=== PATIENT | male | born 1955 | race Two or more races ===

== ENCOUNTER 2018-01-08 21:52 | Inpatient (IN) | payer MEDICAID ==
[~2018-01-08] VITALS: Ht 149.9 cm; Wt 63.0 kg
[2018-01-08] MEDS ORDERED: METFORMIN HCL500 M1 ORAL (22:12)
--- NOTE | 2018-01-08 22:37 | Emergency Room Report ---
History of Present Illness General Chief Complaint: Fever Source: Patient Present Illness HPI Presents with 2 weeks of weakness and lack of appetite with diarrhea. He was told had pneumonia but was afebrile was only given an expectorant. Denies productive cough at this time. Apparently labs were done but no x-ray or EKG at that time. The patient has a history of diabetes. He denies any polyuria or polydipsia. There's no dysuria. He had one episode of diarrhea several days ago at that was brown in color no blood or melena was passed. Still denies fevers, chills, chest pain, dyspnea. Generalized weakness. Takes metformin 500 mg once a day for diabetes. No other medical problems. Never smoker. Allergies: Coded Allergies: No Known Allergies (Unverified , 01/08/18) Patient History Past Medical History: see triage record Social History: Denies: smoking Social History Narrative with family Reviewed Nursing Documentation: PMH: Agreed, PSxH: Agreed Nursing Documentation-PMH Hx Diabetes: Yes Review of Systems All Other Systems: negative except mentioned in HPI Physical Exam Vital Signs Date Time Temp Pulse Resp B/P (MAP) Pulse Ox O2 Delivery O2 Flow Rate FiO2 01/08/18 21:58 101.3 98 16 115/80 94 Room Air 101.3 Sp02 EP Interpretation: reviewed, abnormal - interpreted as low by me General Appearance: no apparent distress, GCS 15, other - weak and slow to move Head: normocephalic Eyes: bilateral eye normal inspection, bilateral eye PERRL ENT: moist mucus membranes - poor dentition Neck: supple Respiratory: lungs clear, normal breath sounds, no respiratory distress Cardiovascular #1: regular rate, rhythm, no edema Cardiovascular #2: 2+ radial (R) Gastrointestinal: normal inspection, normal bowel sounds, non tender, no mass, non-distended Musculoskeletal: back normal, gait/station normal, normal range of motion Neurologic: alert, oriented x3, motor strength/tone normal, DTRs symmetric, sensory intact Psychiatric: depressed affect Skin: normal inspection, warm/dry Medical Decision Making Diagnostic Impression: Primary Impression: Pneumonia Qualified Codes: J18.1 - Lobar pneumonia, unspecified organism Additional Impressions: Hyponatremia Diabetes Qualified Codes: E11.8 - Type 2 diabetes mellitus with unspecified complications ER Course Patient presents with alleged pneumonia with fever, low O2 sat, weakness and poor appetite with h/o diabetes. Ddx: pneumonia, atypical pneumonia, mass, electrolyte abnormality, ACS amongst others. Evaluation with BC, lactate, EKG and other labs. Diabetes might make cardiac disease silent. Treatment with IV hydration pending other labs. EKG without injury or ischemia. CXR with RUL infiltrate. WBC normal. Sodium low. Glucose mildly elevated. Troponin neg. Influenza neg. Antibiotics begun. Patient not want to be in hospital. Explained risks and need for further evaluation and treatment of infiltrate and low sodium. Patient and family understand and agree to admission Admit med Dr. Baez. Laboratory Tests Test 01/08/18 22:15 01/08/18 22:29 01/09/18 08:40 01/09/18 09:40 Urine Color Brown Yellow Urine Appearance Clear Clear Urine pH 6 (4.5-8.0) 7 (4.5-8.0) Urine Specific [place] 1.015 (1.005-1.035) 1.005 (1.005-1.035) Urine Protein Negative (NEGATIVE) Negative (NEGATIVE) Urine Glucose (UA) Negative (NEGATIVE) Negative (NEGATIVE) Urine Ketones Negative (NEGATIVE) Negative (NEGATIVE) Urine Occult Blood 3+ (NEGATIVE) H 1+ (NEGATIVE) H Urine Nitrite Negative (NEGATIVE) Negative (NEGATIVE) Urine Bilirubin Negative (NEGATIVE) Negative (NEGATIVE) Urine Urobilinogen 8 MG/DL (0.0-1.0) H 4 MG/DL (0.0-1.0) H Urine Leukocyte Esterase Negative (NEGATIVE) Negative (NEGATIVE) Urine RBC 2-4 /HPF (0 - 0) H 2-4 /HPF (0 - 0) H Urine WBC 0-2 /HPF (0 - 0) 0 /HPF (0 - 0) Urine Squamous Epithelial Cells None /LPF (NONE/OCC) Occasional /LPF Urine Bacteria Few /HPF (NONE) Occasional /HPF (NONE) White Blood Count 9.1 K/UL (4.8-10.8) Red Blood Count 5.35 M/UL (4.70-6.10) Hemoglobin 15.8 G/DL (14.2-18.0) Hematocrit 45.0 % (42.0-52.0) Mean Corpuscular Volume 84 FL (80-99) Mean Corpuscular Hemoglobin 29.6 PG (27.0-31.0) Mean Corpuscular Hemoglobin Concent 35.2 G/DL (32.0-36.0) Red Cell Distribution Width 11.0 % (11.6-14.8) L Platelet Count 238 K/UL (150-450) Mean Platelet Volume 6.3 FL (6.5-10.1) L Neutrophils (%) (Auto) 72.9 % (45.0-75.0) Lymphocytes (%) (Auto) 17.6 % (20.0-45.0) L Monocytes (%) (Auto) 7.3 % (1.0-10.0) Eosinophils (%) (Auto) 1.3 % (0.0-3.0) Basophils (%) (Auto) 0.9 % (0.0-2.0) Prothrombin Time 10.5 SEC (9.30-11.50) Prothrombin Time INR 1.0 (0.9-1.1) PTT 25 SEC (23-33) Sodium Level 126 MMOL/L (136-145) L Potassium Level 3.9 MMOL/L (3.5-5.1) Chloride Level 91 MMOL/L (98-107) L Carbon Dioxide Level 30 MMOL/L (21-32) Anion Gap 5 mmol/L (5-15) Blood Urea Nitrogen 9 mg/dL (7-18) Creatinine 1.1 MG/DL (0.55-1.30) Estimate Glomerular Filtration Rate > 60 mL/min (>60) Glucose Level 178 MG/DL (74-106) H Lactic Acid Level 1.50 mmol/L (0.66-2.22) Calcium Level 8.5 MG/DL (8.5-10.1) Total Bilirubin 0.8 MG/DL (0.2-1.0) Aspartate Amino Transferase (AST) 36 U/L (15-37) Alanine Aminotransferase (ALT) 69 U/L (12-78) Alkaline Phosphatase 116 U/L (46-116) Total Creatine Kinase 56 U/L (26-308) Troponin I 0.000 ng/mL (0.000-0.056) Pro-B-Type Natriuretic Peptide 61 pg/mL (0-125) Total Protein 8.7 G/DL (6.4-8.2) H Albumin 2.5 G/DL (3.4-5.0) L Globulin 6.2 g/dL Albumin/Globulin Ratio 0.4 (1.0-2.7) L Urine Osmolality 394 mOsm/kg (429-449) L Urine Random Sodium 105 MEQ/L (20-110) Osmolality 277 mOsm/kg (297-317) L Uric Acid 2.2 MG/DL (2.6-7.2) L Thyroid Stimulating Hormone (TSH) 1.589 uiU/mL (0.358-3.740) Free Thyroxine 1.19 NG/DL (0.76-1.46) Free Triiodothyronine 1.5 pg/mL (2.3-4.2) L Cortisol Pending Microbiology Date/Time Source Procedure Growth Status 01/08/18 22:29 Nasal Nares Influenza Types A,B Antigen (CHRISSY) - Final Complete EKG Diagnostic Results Rate: normal Rhythm: NSR ST Segments: no acute changes Rhythm Strip Diag. Results EP Interpretation: yes Rhythm: NSR, no PVC's, no ectopy Chest X-Ray Diagnostic Results Chest X-Ray Diagnostic Results : Chest X-Ray Ordered: Yes # of Views/Limited/Complete: 1 View Indication: Other EP Interpretation: Yes Interpretation: no effusion, no pneumothorax, other - RUL infiltrate Impression: Other Electronically Signed by: Minor Lu MD Last Vital Signs Date Time Temp Pulse Resp B/P (MAP) Pulse Ox O2 Delivery O2 Flow Rate FiO2 01/08/18 21:58 101.3 98 16 115/80 94 Room Air 101.3 Status: improved Disposition: ADMITTED INPATIENT Condition: Serious Referrals: NON PHYSICIAN (PCP) Minor Lu M.D. Jan 08, 2018 22:37
[2018-01-08 23:07] LABS: APPEARANCE,URINE CLEAR; BILIRUBIN, URINE NEGATIVE (NEGATIVE); COLOR,URINE BROWN; GLUCOSE, URINE (UA) NEGATIVE (NEGATIVE); KETONES,URINE NEGATIVE (NEGATIVE); LEUKOCYTE ESTERASE ,URINE NEGATIVE (NEGATIVE); NITRITE,URINE NEGATIVE (NEGATIVE); PH,URINE 6 (4.5-8.0); PROTEIN,URINE NEGATIVE (NEGATIVE); UROBILINOGEN,URINE 8 MG/DL (0.0-1.0)
[2018-01-08 23:09] LABS: BASOPHILS % (AUTO) 0.9 % (0.0-2.0); EOSINOPHILS % (AUTO) 1.3 % (0.0-3.0); HEMOGLOBIN 15.8 G/DL (14.2-18.0); LYMPHOCYTES % (AUTO) 17.6 % (20.0-45.0); MEAN CORPUSCULAR VOLUME 84 FL (80-99); MONOCYTES % (AUTO) 7.3 % (1.0-10.0); NEUTROPHILS % (AUTO) 72.9 % (45.0-75.0); PLATELET COUNT 238 K/UL (150-450); RED BLOOD COUNT 5.35 M/UL (4.70-6.10); WHITE BLOOD COUNT 9.1 K/UL (4.8-10.8)
[2018-01-08] MEDS ORDERED: cefTRIAXone 1 GM in NS 55 ML IVPB ONE (23:15)
[2018-01-08 23:16] LABS: ANION GAP 5 mmol/L (5-15); BLOOD UREA NITROGEN 9 mg/dL (7-18); CALCIUM 8.5 MG/DL (8.5-10.1); CARBON DIOXIDE 30 MMOL/L (21-32); CHLORIDE 91 MMOL/L (98-107); CREATININE 1.1 MG/DL (0.55-1.30); POTASSIUM 3.9 MMOL/L (3.5-5.1); SODIUM 126 MMOL/L (136-145)
[2018-01-08 23:33] LABS: ALANINE AMINOTRANSFERASE 69 U/L (12-78); ALBUMIN 2.5 G/DL (3.4-5.0); ALBUMIN/GLOBULIN RATIO 0.4 (1.0-2.7); ALKALINE PHOSPHATASE 116 U/L (46-116); ASPARTATE AMINO TRANSFERASE 36 U/L (15-37); BILIRUBIN,TOTAL 0.8 MG/DL (0.2-1.0); CREATINE KINASE 56 U/L (26-308)
[2018-01-09] VITALS (8 sets, daily range): BP systolic 115–146; BP diastolic 66–88
[2018-01-09] MEDS ORDERED: Miralax 17gm pkt ORAL PRN (06:30)
[2018-01-09] MEDS ORDERED: Morphine Sulfate 4mg/ml Inj IVP PRN (06:30)
[2018-01-09] MEDS: NovoLOG Insulin Flexpen SUBQ SCH ×4 (06:30→20:50)
[2018-01-09] MEDS ORDERED: LORazepam Inj 2mg/ml 1ml IV PRN (06:30)
[2018-01-09] MEDS ORDERED: Albuterol/Ipratropium 3ml neb HHN PRN (06:30)
[2018-01-09] MEDS ORDERED: Promethazine/Codeine 5ml UD ORAL PRN (06:30)
[2018-01-09] MEDS: Heparin 5000 units/ml inj SUBQ SCH ×2 (08:33→20:50)
[2018-01-09] MEDS: Cefepime HCl 2 GM in NS 110 ML IV SCH ×2 (08:58→20:49)
[2018-01-09] MEDS ORDERED: Cefepime HCl 2 GM in D5W 110 ML IV SCH (09:00)
[2018-01-09 09:01] LABS: APPEARANCE,URINE CLEAR; BILIRUBIN, URINE NEGATIVE (NEGATIVE); GLUCOSE, URINE (UA) NEGATIVE (NEGATIVE); KETONES,URINE NEGATIVE (NEGATIVE); LEUKOCYTE ESTERASE ,URINE NEGATIVE (NEGATIVE); NITRITE,URINE NEGATIVE (NEGATIVE); PH,URINE 7 (4.5-8.0); PROTEIN,URINE NEGATIVE (NEGATIVE); UROBILINOGEN,URINE 4 MG/DL (0.0-1.0)
[2018-01-09 09:07] LABS: COLOR,URINE YELLOW
--- NOTE | 2018-01-09 09:59 | Diagnostic Imaging Report ---
Indication: Weakness Technique: XRAY Chest 1v Comparison: None Findings: Heart appears borderline enlarged. Mediastinal contours are sharp. There is mild haziness of the pulmonary vascularity. There is patchy opacity with air bronchograms in the right upper lobe. Additional more vague opacities noted in the right lower lobe. No pleural effusion. No pneumothorax. No acute osseous abnormality. Impression: Findings concerning for a right upper lobe pneumonia. Question degree of underlying interstitial edema/opacification, possibly exaggerated by low lung volumes. Clinical correlation and radiographic follow-up to resolution of the right upper lobe opacity recommended. Study obtained via the emergency department however patient admitted to the hospital at time of dictation of the final report.
[2018-01-09] MEDS: Vancomycin 1 GM in D5W 275 ML IVPB SCH (10:24)
--- NOTE | 2018-01-09 15:04 | Cardiology Report ---
APPROVED REPORT EKG Measurement Heart [id number] ID [id number] Normal sinus rhythm Normal ECG
--- NOTE | 2018-01-09 15:42 | Consultation ---
History of Present Illness General Date patient seen: Jan 09, 2018 Chief Complaint: Fever Present Illness HPI 62 year old male with hx of Diabetes presented to ER with CC of weakness and lack of appetite with diarrhea for two wks. . He was told had pneumonia but was afebrile was only given an expectorant. Denies productive cough at this time. Apparently labs were done but no x-ray or EKG at that time. He had one episode of diarrhea several days ago. Still denies fevers, chills, chest pain, dyspnea. Generalized weakness. Allergies: Coded Allergies: No Known Allergies (Unverified , 01/08/18) Medication History Scheduled Metformin Hcl* (Metformin Hcl*), 500 MG ORAL DAILY, (Reported) Patient History Healthcare decision maker Resuscitation status Advanced Directive on File Past Medical/Surgical History Past Medical/Surgical History: (1) Diabetes Review of Systems Constitutional: Reports: fever Respiratory: Reports: cough All Other Systems: negative except mentioned in HPI Physical Exam General Appearance: WD/WN Lines, tubes and drains: peripheral HEENT: normocephalic, atraumatic Neck: non-tender, normal alignment Respiratory/Chest: chest wall non-tender, lungs clear Breasts: no masses Cardiovascular/Chest: normal peripheral pulses Abdomen: normal bowel sounds, non tender Genitourinary/Rectal: normal genital exam, normal rectal exam Extremities: normal range of motion Skin Exam: normal pigmentation 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 Last 24 Hour Vital Signs Date Time Temp Pulse Resp B/P (MAP) Pulse Ox O2 Delivery O2 Flow Rate FiO2 01/09/18 12:00 98.1 93 19 134/76 96 98.1 01/09/18 08:00 98.6 81 20 125/74 96 98.6 01/09/18 04:00 98.2 83 16 120/76 96 Room Air 98.2 01/09/18 02:00 98.8 84 18 139/84 96 Room Air 98.8 01/09/18 02:00 Room Air 01/09/18 02:00 98.7 96 18 146/88 96 Room Air 98.7 01/09/18 01:44 101.3 70 16 115/80 94 Room Air 101.3 01/09/18 01:34 101.3 70 16 115/80 94 Room Air 101.3 01/08/18 21:58 101.3 98 16 115/80 94 Room Air 101.3 Intake and Output 01/08/18 01/09/18 19:00 07:00 Intake Total 0 ml Output Total 500 ml Balance -500 ml Intake Oral 0 ml Output Urine Total 500 ml Laboratory Tests Test 01/08/18 22:15 01/08/18 22:29 01/09/18 08:40 01/09/18 09:40 Urine Color Brown Yellow Urine Appearance Clear Clear Urine pH 6 (4.5-8.0) 7 (4.5-8.0) Urine Specific [place] 1.015 (1.005-1.035) 1.005 (1.005-1.035) Urine Protein Negative (NEGATIVE) Negative (NEGATIVE) Urine Glucose (UA) Negative (NEGATIVE) Negative (NEGATIVE) Urine Ketones Negative (NEGATIVE) Negative (NEGATIVE) Urine Occult Blood 3+ (NEGATIVE) H 1+ (NEGATIVE) H Urine Nitrite Negative (NEGATIVE) Negative (NEGATIVE) Urine Bilirubin Negative (NEGATIVE) Negative (NEGATIVE) Urine Urobilinogen 8 MG/DL (0.0-1.0) H 4 MG/DL (0.0-1.0) H Urine Leukocyte Esterase Negative (NEGATIVE) Negative (NEGATIVE) Urine RBC 2-4 /HPF (0 - 0) H 2-4 /HPF (0 - 0) H Urine WBC 0-2 /HPF (0 - 0) 0 /HPF (0 - 0) Urine Squamous Epithelial Cells None /LPF (NONE/OCC) Occasional /LPF Urine Bacteria Few /HPF (NONE) Occasional /HPF (NONE) White Blood Count 9.1 K/UL (4.8-10.8) Red Blood Count 5.35 M/UL (4.70-6.10) Hemoglobin 15.8 G/DL (14.2-18.0) Hematocrit 45.0 % (42.0-52.0) Mean Corpuscular Volume 84 FL (80-99) Mean Corpuscular Hemoglobin 29.6 PG (27.0-31.0) Mean Corpuscular Hemoglobin Concent 35.2 G/DL (32.0-36.0) Red Cell Distribution Width 11.0 % (11.6-14.8) L Platelet Count 238 K/UL (150-450) Mean Platelet Volume 6.3 FL (6.5-10.1) L Neutrophils (%) (Auto) 72.9 % (45.0-75.0) Lymphocytes (%) (Auto) 17.6 % (20.0-45.0) L Monocytes (%) (Auto) 7.3 % (1.0-10.0) Eosinophils (%) (Auto) 1.3 % (0.0-3.0) Basophils (%) (Auto) 0.9 % (0.0-2.0) Prothrombin Time 10.5 SEC (9.30-11.50) Prothromb Time International Ratio 1.0 (0.9-1.1) Activated Partial Thromboplast Time 25 SEC (23-33) Sodium Level 126 MMOL/L (136-145) L Potassium Level 3.9 MMOL/L (3.5-5.1) Chloride Level 91 MMOL/L (98-107) L Carbon Dioxide Level 30 MMOL/L (21-32) Anion Gap 5 mmol/L (5-15) Blood Urea Nitrogen 9 mg/dL (7-18) Creatinine 1.1 MG/DL (0.55-1.30) Estimat Glomerular Filtration Rate > 60 mL/min (>60) Glucose Level 178 MG/DL (74-106) H Lactic Acid Level 1.50 mmol/L (0.66-2.22) Calcium Level 8.5 MG/DL (8.5-10.1) Total Bilirubin 0.8 MG/DL (0.2-1.0) Aspartate Amino Transf (AST/SGOT) 36 U/L (15-37) Alanine Aminotransferase (ALT/SGPT) 69 U/L (12-78) Alkaline Phosphatase 116 U/L (46-116) Total Creatine Kinase 56 U/L (26-308) Troponin I 0.000 ng/mL (0.000-0.056) Pro-B-Type Natriuretic Peptide 61 pg/mL (0-125) Total Protein 8.7 G/DL (6.4-8.2) H Albumin 2.5 G/DL (3.4-5.0) L Globulin 6.2 g/dL Albumin/Globulin Ratio 0.4 (1.0-2.7) L Urine Osmolality 394 mOsm/kg (429-449) L Urine Random Sodium 105 MEQ/L (20-110) Osmolality 277 mOsm/kg (297-317) L Uric Acid 2.2 MG/DL (2.6-7.2) L Thyroid Stimulating Hormone (TSH) 1.589 uiU/mL (0.358-3.740) Free Thyroxine 1.19 NG/DL (0.76-1.46) Free Triiodothyronine 1.5 pg/mL (2.3-4.2) L Cortisol Pending Microbiology Date/Time Source Procedure Growth Status 01/08/18 22:29 Nasal Nares Influenza Types A,B Antigen (CHRISSY) - Final Complete Height (Feet): 4 Height (Inches): 11.00 Weight (Pounds): 139 Medications Current Medications Medications (Trade) Dose Ordered Sig/Lida Route PRN Reason Start Time Stop Time Status Last Admin Dose Admin Acetaminophen (Tylenol) 650 mg Q4H PRN ORAL FEVER 01/09/18 06:30 02/08/18 06:29 Albuterol/ Ipratropium (Albuterol/ Ipratropium) 3 ml EVERY 4 HOURS PRN HHN Shortness of Breath 01/09/18 06:30 01/14/18 06:29 Cefepime HCl 2 gm/ Sodium Chloride 110 ml @ 220 mls/hr EVERY 12 HOURS IV 01/09/18 09:00 01/16/18 23:59 01/09/18 08:58 Dextrose (Dextrose 50%) STAT PRN IV Hypoglycemia 01/09/18 06:30 02/08/18 06:29 Heparin Sodium (Porcine) (Heparin 5000 units/ml) 5,000 units EVERY 12 HOURS SUBQ 01/09/18 09:00 02/08/18 08:59 01/09/18 08:33 Insulin Aspart (NovoLOG) BEFORE MEALS AND HS SUBQ 01/09/18 06:30 02/08/18 06:29 01/09/18 11:57 Lorazepam (Ativan 2mg/ml 1ml) 2 mg EVERY 2 HOURS PRN IV For Anxiety 01/09/18 06:30 01/16/18 06:29 Morphine Sulfate (Morphine Sulfate) 4 mg EVERY 4 HOURS PRN IVP Severe Pain (Pain Scale 7-10) 01/09/18 06:30 01/16/18 06:29 Ondansetron HCl (Zofran) 4 mg Q6H PRN IVP Nausea & Vomiting 01/09/18 06:30 02/08/18 06:29 Polyethylene Glycol (Miralax) 17 gm DAILYPRN PRN ORAL Constipation 01/09/18 06:30 02/08/18 06:29 Promethazine HCl/ Codeine (Phenergan with Codeine) 5 ml Q4H PRN ORAL For Cough 01/09/18 06:30 02/08/18 06:29 Vancomycin HCl 1 gm/Dextrose 275 ml @ 183.3 mls/ hr Q24H IVPB 01/09/18 07:00 01/14/18 06:59 01/09/18 10:24 Assessment/Plan Problem List: (1) Pneumonia ICD Codes: J18.9 - Pneumonia, unspecified organism SNOMED: 514148738 Qualifiers: Qualified Codes: J18.1 - Lobar pneumonia, unspecified organism (2) Fever ICD Codes: R50.9 - Fever, unspecified SNOMED: 327457222 (3) Hyponatremia ICD Codes: E87.1 - Hypo-osmolality and hyponatremia SNOMED: 57028879 (4) Diabetes ICD Codes: E11.9 - Type 2 diabetes mellitus without complications SNOMED: 11141942 Qualifiers: Qualified Codes: E11.8 - Type 2 diabetes mellitus with unspecified complications Assessment/Plan iv abx check sputum sliding scale diabetic diet. BRENDON MEEHAN Jan 09, 2018 15:42
--- NOTE | 2018-01-09 15:55 | Consultation ---
Consult Note Consult Note Asked to evaluate for low Na Presents with 2 weeks of weakness and lack of appetite with diarrhea. He was told had pneumonia but was afebrile was only given an expectorant. Denies productive cough at this time. Apparently labs were done but no x-ray or EKG at that time. The patient has a history of diabetes. He denies any polyuria or polydipsia. There's no dysuria. He had one episode of diarrhea several days ago at that was brown in color no blood or melena was passed. Still denies fevers, chills, chest pain, dyspnea. Generalized weakness. Takes metformin 500 mg once a day for diabetes. No other medical problems. examined - Data reviewed- . Assessment/Plan - Low Na likely SIADH ( High Rosanna , low Uric... - Pneumonia - Diabetes Plan: PO Fluid restriction Monitor lytes per consultants SERA SHEETS Jan 09, 2018 15:55
--- NOTE | 2018-01-09 23:00 | History and Physical Report ---
DATE OF ADMISSION: 01/08/2018 REASON FOR ADMISSION: The patient is admitted for pneumonia and hyponatremia. HISTORY OF PRESENT ILLNESS: The patient currently only complains of headache and mild cough. Denies shortness of breath. Denies wheezing. Denies nausea, vomiting, or diarrhea. Denies abdominal pain. Denies seizure. The patient is admitted for pneumonia. PAST MEDICAL HISTORY: NIDDM and anxiety disorder. MEDICATIONS: Metformin. ALLERGIES: No known allergies. FAMILY HISTORY: Does have a history of diabetes. SOCIAL HISTORY: Denies history of smoking, alcohol, or illicit drugs. REVIEW OF SYSTEMS: HEENT: Denies headaches. RESPIRATORY: Denies shortness of breath. Does have mild cough, nonproductive. CARDIOVASCULAR: Denies chest pain. No orthopnea. GASTROINTESTINAL: Denies nausea, vomiting, or diarrhea. EXTREMITIES: Denies pain. CENTRAL NERVOUS SYSTEM: Denies change in vision or speech pattern. Does have headaches. PHYSICAL EXAMINATION: VITAL SIGNS: Temperature initially was 101.3, pulse is 70, blood pressure is 115/73. HEENT: PERRLA. NECK: Supple. No lymphadenopathy. CHEST: Clear to auscultation. GASTROINTESTINAL: Soft and nontender. No organomegaly. EXTREMITIES: No edema. NEUROLOGIC: Moves all four extremities. Reflexes are equal on both sides. Cranial nerves II through XII are intact. LABORATORY DATA: WBC of 9.1, hemoglobin of 15.8, and platelets of 238,000. Sodium 136, potassium 3.9, carbon dioxide of 30, BUN of 9, creatinine 1.1, and glucose of 178. ASSESSMENT AND PLAN: Possible pneumonia on the x-ray as well as hyponatremia admitted for those reasons. I have asked Dr. Carpio and Dr. Gama to see the patient for the above-mentioned diagnoses and treatment as well as Dr. Sin for the treatment of pneumonia as well. Echo Baez M.D. DR: DARRICK JOB#: [id number] CC:
[2018-01-10 04:22] VITALS: BP 118/72
[2018-01-10] MEDS: Vancomycin 1 GM in D5W 275 ML IVPB SCH (05:47)
[2018-01-10] MEDS: NovoLOG Insulin Flexpen SUBQ SCH ×4 (05:48→20:25)
[2018-01-10 07:33] LABS: ALANINE AMINOTRANSFERASE 44 U/L (12-78); ALBUMIN 2.2 G/DL (3.4-5.0); ALBUMIN/GLOBULIN RATIO 0.4 (1.0-2.7); ALKALINE PHOSPHATASE 91 U/L (46-116); ANION GAP 6 mmol/L (5-15); ASPARTATE AMINO TRANSFERASE 21 U/L (15-37); BILIRUBIN,TOTAL 0.7 MG/DL (0.2-1.0); BLOOD UREA NITROGEN 9 mg/dL (7-18); CALCIUM 8.5 MG/DL (8.5-10.1); CARBON DIOXIDE 29 MMOL/L (21-32); CHLORIDE 94 MMOL/L (98-107); CHOLESTEROL 164 MG/DL (< 200); HDL CHOLESTEROL 39 MG/DL (40-60); PHOSPHORUS 3.3 MG/DL (2.5-4.9); POTASSIUM 4.1 MMOL/L (3.5-5.1); SODIUM 129 MMOL/L (136-145); TRIGLYCERIDES 79 MG/DL (30-150)
[2018-01-10 07:36] LABS: BASOPHILS % (AUTO) 0.7 % (0.0-2.0); EOSINOPHILS % (AUTO) 1.6 % (0.0-3.0); HEMATOCRIT 41.2 % (42.0-52.0); HEMOGLOBIN 14.7 G/DL (14.2-18.0); LYMPHOCYTES % (AUTO) 14.9 % (20.0-45.0); MEAN CORPUSCULAR VOLUME 84 FL (80-99); MONOCYTES % (AUTO) 8.5 % (1.0-10.0); NEUTROPHILS % (AUTO) 74.3 % (45.0-75.0); PLATELET COUNT 201 K/UL (150-450); RED BLOOD COUNT 4.89 M/UL (4.70-6.10); RED CELL DISTRIBUTION WIDTH 11.2 % (11.6-14.8); WHITE BLOOD COUNT 7.2 K/UL (4.8-10.8)
[2018-01-10 08:00] VITALS: BP 113/69
[2018-01-10] MEDS: Heparin 5000 units/ml inj SUBQ SCH ×2 (08:22→20:25)
[2018-01-10] MEDS: Cefepime HCl 2 GM in NS 110 ML IV SCH ×2 (08:23→20:24)
[2018-01-10 11:49] VITALS: BP 100/63
--- NOTE | 2018-01-10 12:07 | Nephrology Progress Note ---
Assessment/Plan Problem List: (1) Hyponatremia (2) Pneumonia (3) Diabetes (4) SIADH (syndrome of inappropriate ADH production) Assessment - Low Na likely SIADH ( High Rosanna , low Uric... - Pneumonia - Diabetes Plan Plan: PO Fluid restriction Monitor lytes trial of 3% saline and lasix per consultants Subjective ROS Limited/Unobtainable: No Constitutional: Reports: malaise Objective Objective Last 24 Hour Vital Signs Date Time Temp Pulse Resp B/P (MAP) Pulse Ox O2 Delivery O2 Flow Rate FiO2 01/10/18 11:49 98.2 69 18 100/63 95 98.2 01/10/18 09:24 99.2 01/10/18 08:25 99.2 01/10/18 08:00 99.7 89 19 113/69 93 99.7 01/10/18 05:49 99.2 99.2 01/10/18 04:22 100.2 80 17 118/72 97 100.2 01/10/18 04:22 97 Room Air 01/09/18 23:57 94 Room Air 01/09/18 23:57 98.8 90 18 120/77 94 98.8 01/09/18 21:14 102.4 01/09/18 20:00 Room Air 01/09/18 20:00 102.4 93 17 126/81 94 102.4 01/09/18 19:54 88 18 Room Air 01/09/18 16:00 97.6 85 19 115/66 95 97.6 Intake and Output 01/09/18 01/10/18 19:00 07:00 Intake Total 1115.0 ml 413.3 ml Balance 1115.0 ml 413.3 ml Intake Oral 620 ml 120 ml IV Total 495.0 ml 293.3 ml # Voids 2 2 Laboratory Tests 01/10/18 04:45: White Blood Count 7.2, Red Blood Count 4.89, Hemoglobin 14.7, Hematocrit 41.2L, Mean Corpuscular Volume 84, Mean Corpuscular Hemoglobin 30.1, Mean Corpuscular Hemoglobin Concent 35.7, Red Cell Distribution Width 11.2L, Platelet Count 201, Mean Platelet Volume 5.4L, Neutrophils (%) (Auto) 74.3, Lymphocytes (%) (Auto) 14.9L, Monocytes (%) (Auto) 8.5, Eosinophils (%) (Auto) 1.6, Basophils (%) (Auto ) 0.7, Sodium Level 129L, Potassium Level 4.1, Chloride Level 94L, Carbon Dioxide Level 29, Anion Gap 6, Blood Urea Nitrogen 9, Creatinine 1.0, Estimat Glomerular Filtration Rate > 60, Glucose Level 142H, Hemoglobin A1c 8.9H, Uric Acid 2.2L, Calcium Level 8.5, Phosphorus Level 3.3, Magnesium Level 2.2, Total Bilirubin 0.7, Aspartate Amino Transf (AST/SGOT) 21, Alanine Aminotransferase ( ALT/SGPT) 44, Alkaline Phosphatase 91, Total Protein 7.6, Albumin 2.2L, Globulin 5.4, Albumin/Globulin Ratio 0.4L, Triglycerides Level 79, Cholesterol Level 164, LDL Cholesterol 111H, HDL Cholesterol 39L, Cholesterol/HDL Ratio 4.2 Height (Feet): 4 Height (Inches): 11.00 Weight (Pounds): 139 Respiratory/Chest: decreased breath sounds SERA SHEETS Jan 10, 2018 12:07
[2018-01-10] MEDS ORDERED: NaCl 3% 500ml 250 ML IV ONE (13:00)
[2018-01-10] MEDS ORDERED: NS 275ml ONE (15:42)
[2018-01-10] MEDS ORDERED: Tubing IV Secondary IV ONE (15:42)
[2018-01-10 15:51] VITALS: BP 105/65
--- NOTE | 2018-01-10 17:04 | Pulmonology Progress Note ---
Assessment/Plan Problems: (1) Pneumonia (2) Fever (3) Hyponatremia (4) Diabetes Assessment/Plan temp less respiratory treatment IV abx check sputum CT of chest to look at the RUL infiltrate closely Subjective ROS Limited/Unobtainable: No Interval Events: less cough improivng Allergies: Coded Allergies: No Known Allergies (Unverified , 01/08/18) Objective Last 24 Hour Vital Signs Date Time Temp Pulse Resp B/P (MAP) Pulse Ox O2 Delivery O2 Flow Rate FiO2 01/10/18 16:33 99.5 01/10/18 15:51 99.9 72 20 105/65 96 99.9 01/10/18 15:34 99.9 01/10/18 11:49 98.2 69 18 100/63 95 98.2 01/10/18 09:24 99.2 01/10/18 08:25 99.2 01/10/18 08:00 99.7 89 19 113/69 93 99.7 01/10/18 06:47 69 18 Room Air 01/10/18 05:49 99.2 99.2 01/10/18 04:22 100.2 80 17 118/72 97 100.2 01/10/18 04:22 97 Room Air 01/09/18 23:57 94 Room Air 01/09/18 23:57 98.8 90 18 120/77 94 98.8 01/09/18 21:14 102.4 01/09/18 20:00 Room Air 01/09/18 20:00 102.4 93 17 126/81 94 102.4 01/09/18 19:54 88 18 Room Air Intake and Output 01/09/18 01/10/18 19:00 07:00 Intake Total 1115.0 ml 413.3 ml Balance 1115.0 ml 413.3 ml Intake Oral 620 ml 120 ml IV Total 495.0 ml 293.3 ml # Voids 2 2 Objective General Appearance: no apparent distress Head: normocephalic, atraumatic Eyes: bilateral eye PERRL, bilateral eye EOMI ENT: normal pharynx, no angioedema Neck: supple, thyroid normal Respiratory: lungs clear, normal breath sounds Cardiovascular #1: regular rate, rhythm Gastrointestinal: non tender, soft Microbiology Date/Time Source Procedure Growth Status 01/08/18 22:25 Blood Blood Culture - Preliminary NO GROWTH AFTER 24 HOURS Resulted 01/08/18 22:18 Blood Blood Culture - Preliminary NO GROWTH AFTER 24 HOURS Resulted 01/09/18 10:30 Sputum Gram Stain - Final Resulted 01/09/18 10:30 Sputum Sputum Culture - Preliminary NORMAL UPPER RESPIRATORY SYDNEE AT 24 ... Resulted 01/08/18 22:29 Nasal Nares Influenza Types A,B Antigen (CHRISSY) - Final Complete Laboratory Tests 01/10/18 04:45: White Blood Count 7.2, Red Blood Count 4.89, Hemoglobin 14.7, Hematocrit 41.2L, Mean Corpuscular Volume 84, Mean Corpuscular Hemoglobin 30.1, Mean Corpuscular Hemoglobin Concent 35.7, Red Cell Distribution Width 11.2L, Platelet Count 201, Mean Platelet Volume 5.4L, Neutrophils (%) (Auto) 74.3, Lymphocytes (%) (Auto) 14.9L, Monocytes (%) (Auto) 8.5, Eosinophils (%) (Auto) 1.6, Basophils (%) (Auto ) 0.7, Sodium Level 129L, Potassium Level 4.1, Chloride Level 94L, Carbon Dioxide Level 29, Anion Gap 6, Blood Urea Nitrogen 9, Creatinine 1.0, Estimat Glomerular Filtration Rate > 60, Glucose Level 142H, Hemoglobin A1c 8.9H, Uric Acid 2.2L, Calcium Level 8.5, Phosphorus Level 3.3, Magnesium Level 2.2, Total Bilirubin 0.7, Aspartate Amino Transf (AST/SGOT) 21, Alanine Aminotransferase ( ALT/SGPT) 44, Alkaline Phosphatase 91, Total Protein 7.6, Albumin 2.2L, Globulin 5.4, Albumin/Globulin Ratio 0.4L, Triglycerides Level 79, Cholesterol Level 164, LDL Cholesterol 111H, HDL Cholesterol 39L, Cholesterol/HDL Ratio 4.2 Current Medications Medications (Trade) Dose Ordered Sig/Lida Route PRN Reason Start Time Stop Time Status Last Admin Dose Admin Acetaminophen (Tylenol) 650 mg Q4H PRN ORAL Mild Pain/Temp > 100.5 01/10/18 12:15 02/09/18 12:14 01/10/18 15:34 Albuterol/ Ipratropium (Albuterol/ Ipratropium) 3 ml EVERY 4 HOURS PRN HHN Shortness of Breath 01/09/18 06:30 01/14/18 06:29 Cefepime HCl 2 gm/ Sodium Chloride 110 ml @ 220 mls/hr EVERY 12 HOURS IV 01/09/18 09:00 01/16/18 23:59 01/10/18 08:23 Dextrose (Dextrose 50%) STAT PRN IV Hypoglycemia 01/09/18 06:30 02/08/18 06:29 Furosemide (Lasix) 10 mg EVERY 6 HOURS IV 01/10/18 18:00 02/09/18 17:59 01/10/18 13:30 Heparin Sodium (Porcine) (Heparin 5000 units/ml) 5,000 units EVERY 12 HOURS SUBQ 01/09/18 09:00 02/08/18 08:59 01/10/18 08:22 Insulin Aspart (NovoLOG) BEFORE MEALS AND HS SUBQ 01/09/18 06:30 02/08/18 06:29 01/10/18 17:00 Lansoprazole (Prevacid) 30 mg DAILY ORAL 01/09/18 16:30 02/08/18 16:29 01/10/18 08:22 Ondansetron HCl (Zofran) 4 mg Q6H PRN IVP Nausea & Vomiting 01/09/18 06:30 02/08/18 06:29 Polyethylene Glycol (Miralax) 17 gm DAILYPRN PRN ORAL Constipation 01/09/18 06:30 02/08/18 06:29 Promethazine HCl/ Codeine (Phenergan with Codeine) 5 ml Q4H PRN ORAL For Cough 01/09/18 06:30 02/08/18 06:29 Sodium Chloride 250 ml @ 30 mls/hr ONCE ONCE IV 01/10/18 13:00 01/10/18 21:19 01/10/18 13:47 Vancomycin HCl (Vanco rx to dose) 1 ea DAILY PRN MISC PRN RX TO DOSE PROTOCOL 01/09/18 15:45 02/08/18 15:44 Vancomycin HCl 1 gm/Dextrose 275 ml @ 183.3 mls/ hr Q24H IVPB 01/09/18 07:00 01/14/18 06:59 01/10/18 05:47 BRENDON MEEHAN Jan 10, 2018 17:04
[2018-01-10 20:06] VITALS: BP 119/67
--- NOTE | 2018-01-10 21:30 | General Progress Note ---
Assessment/Plan Problem List: (1) Diabetes ICD Codes: E11.9 - Type 2 diabetes mellitus without complications SNOMED: 54900239 Qualifiers: Qualified Codes: E11.8 - Type 2 diabetes mellitus with unspecified complications (2) Hyponatremia ICD Codes: E87.1 - Hypo-osmolality and hyponatremia SNOMED: 83450358 (3) Pneumonia ICD Codes: J18.9 - Pneumonia, unspecified organism SNOMED: 810770466 Qualifiers: Qualified Codes: J18.1 - Lobar pneumonia, unspecified organism (4) Fever ICD Codes: R50.9 - Fever, unspecified SNOMED: 658027930 Status: progressing Assessment/Plan low na is improving r/p siadh pna is improving afebrile abx per id reviewed chart and labs Subjective ROS Limited/Unobtainable: Yes Allergies: Coded Allergies: No Known Allergies (Unverified , 01/08/18) Objective Last 24 Hour Vital Signs Date Time Temp Pulse Resp B/P (MAP) Pulse Ox O2 Delivery O2 Flow Rate FiO2 01/10/18 20:06 99.0 78 20 119/67 95 Room Air 99.0 01/10/18 16:33 99.5 01/10/18 15:51 99.9 72 20 105/65 96 99.9 01/10/18 15:34 99.9 01/10/18 11:49 98.2 69 18 100/63 95 98.2 01/10/18 09:24 99.2 01/10/18 08:25 99.2 01/10/18 08:00 99.7 89 19 113/69 93 99.7 01/10/18 06:47 69 18 Room Air 01/10/18 05:49 99.2 99.2 01/10/18 04:22 100.2 80 17 118/72 97 100.2 01/10/18 04:22 97 Room Air 01/09/18 23:57 94 Room Air 01/09/18 23:57 98.8 90 18 120/77 94 98.8 Intake and Output 01/09/18 01/10/18 19:00 07:00 Intake Total 1115.0 ml 413.3 ml Balance 1115.0 ml 413.3 ml Intake Oral 620 ml 120 ml IV Total 495.0 ml 293.3 ml # Voids 2 2 Laboratory Tests 01/10/18 04:45: White Blood Count 7.2, Red Blood Count 4.89, Hemoglobin 14.7, Hematocrit 41.2L, Mean Corpuscular Volume 84, Mean Corpuscular Hemoglobin 30.1, Mean Corpuscular Hemoglobin Concent 35.7, Red Cell Distribution Width 11.2L, Platelet Count 201, Mean Platelet Volume 5.4L, Neutrophils (%) (Auto) 74.3, Lymphocytes (%) (Auto) 14.9L, Monocytes (%) (Auto) 8.5, Eosinophils (%) (Auto) 1.6, Basophils (%) (Auto ) 0.7, Sodium Level 129L, Potassium Level 4.1, Chloride Level 94L, Carbon Dioxide Level 29, Anion Gap 6, Blood Urea Nitrogen 9, Creatinine 1.0, Estimat Glomerular Filtration Rate > 60, Glucose Level 142H, Hemoglobin A1c 8.9H, Uric Acid 2.2L, Calcium Level 8.5, Phosphorus Level 3.3, Magnesium Level 2.2, Total Bilirubin 0.7, Aspartate Amino Transf (AST/SGOT) 21, Alanine Aminotransferase ( ALT/SGPT) 44, Alkaline Phosphatase 91, Total Protein 7.6, Albumin 2.2L, Globulin 5.4, Albumin/Globulin Ratio 0.4L, Triglycerides Level 79, Cholesterol Level 164, LDL Cholesterol 111H, HDL Cholesterol 39L, Cholesterol/HDL Ratio 4.2 Height (Feet): 4 Height (Inches): 11.00 Weight (Pounds): 139 General Appearance: confused Cardiovascular: normal rate Respiratory/Chest: lungs clear Echo Baez MD Jan 10, 2018 21:30
[2018-01-11] VITALS: BP 129/86
[2018-01-11 04:14] VITALS: BP 135/78
[2018-01-11] MEDS: Vancomycin 1 GM in D5W 275 ML IVPB SCH (05:55)
[2018-01-11] MEDS: NovoLOG Insulin Flexpen SUBQ SCH ×4 (06:06→20:30)
[2018-01-11 06:42] LABS: BASOPHILS % (AUTO) 0.6 % (0.0-2.0); EOSINOPHILS % (AUTO) 0.4 % (0.0-3.0); HEMOGLOBIN 15.1 G/DL (14.2-18.0); LYMPHOCYTES % (AUTO) 10.7 % (20.0-45.0); MEAN CORPUSCULAR VOLUME 84 FL (80-99); NEUTROPHILS % (AUTO) 82.2 % (45.0-75.0); PLATELET COUNT 226 K/UL (150-450); RED BLOOD COUNT 4.97 M/UL (4.70-6.10); WHITE BLOOD COUNT 8.6 K/UL (4.8-10.8)
[2018-01-11 07:02] LABS: ALANINE AMINOTRANSFERASE 48 U/L (12-78); ALBUMIN 2.4 G/DL (3.4-5.0); ALBUMIN/GLOBULIN RATIO 0.4 (1.0-2.7); ALKALINE PHOSPHATASE 97 U/L (46-116); ANION GAP 7 mmol/L (5-15); ASPARTATE AMINO TRANSFERASE 24 U/L (15-37); BILIRUBIN,TOTAL 0.7 MG/DL (0.2-1.0); BLOOD UREA NITROGEN 11 mg/dL (7-18); CALCIUM 8.3 MG/DL (8.5-10.1); CARBON DIOXIDE 27 MMOL/L (21-32); CHLORIDE 95 MMOL/L (98-107); PHOSPHORUS 2.8 MG/DL (2.5-4.9); SODIUM 128 MMOL/L (136-145)
[2018-01-11 08:09] VITALS: BP 131/81
[2018-01-11] MEDS: Heparin 5000 units/ml inj SUBQ SCH ×2 (08:56→20:28)
--- NOTE | 2018-01-11 10:13 | Diagnostic Imaging Report ---
Clinical Indication: Chest pain, right upper lobe infiltrate on prior chest radiograph Technique: IV administration nonionic contrast. Spiral acquisition obtained through the chest. Multiplanar reconstructions generated. Total dose length product 728.22 mGycm. CTDIvol(s) 22.06 mGy. Dose reduction achieved using automated exposure control Comparison: none Findings: There is dense consolidation of a significant portion of the inferior right upper lobe. This contains air bronchograms. Elsewhere throughout the right lung, involving all 3 lobes, are extensive interstitial opacities. These are not well characterized but may have a tree-in-bud appearance. Similar less extensive opacities are seen in the inferior left upper lobe and in the inferior left lower lobe. There is mediastinal lymphadenopathy, with a subcarinal node measuring 2.9 x 2.2 cm as well as prominent right paratracheal nodes. Right hilar nodes contain calcifications as does the largest right paratracheal node. The heart size is upper limits of normal. No pericardial effusion. The included thyroid is unremarkable. No axillary or chest wall mass or adenopathy. The bones are unremarkable. The included upper abdominal anatomy is remarkable for the presence of gallstones within a contracted gallbladder. There is slight hepatic low attenuation which may indicate mild fatty change. Impression: Dense consolidation of the inferior right upper lobe. The appearance of this is suggestive of a typical community-acquired pneumonia. However, given the presence of interstitial opacities elsewhere throughout the right lung and in a portion of the left lung, mediastinal and hilar lymphadenopathy, and calcifications suggesting old granulomatous disease the possibility of reactivation tuberculosis should also be considered. Recommend correlation with clinical and laboratory findings. This critical value was discussed by phone with Dr. Sin at time of interpretation Cholelithiasis The CT scanner at [facility] is accredited by the [employer] and the scans are performed using protocols designed to limit radiation exposure to as low as reasonably achievable to attain images of sufficient resolution adequate for diagnostic evaluation.
[2018-01-11] MEDS: Cefepime HCl 2 GM in NS 110 ML IV SCH ×2 (10:43→20:28)
[2018-01-11 11:11] LABS: BASOPHILS % (AUTO) 0.5 % (0.0-2.0); EOSINOPHILS % (AUTO) 0.2 % (0.0-3.0); HEMATOCRIT 42.9 % (42.0-52.0); HEMOGLOBIN 15.2 G/DL (14.2-18.0); LYMPHOCYTES % (AUTO) 10.4 % (20.0-45.0); MEAN CORPUSCULAR VOLUME 84 FL (80-99); MONOCYTES % (AUTO) 6.4 % (1.0-10.0); NEUTROPHILS % (AUTO) 82.4 % (45.0-75.0); PLATELET COUNT 236 K/UL (150-450); RED BLOOD COUNT 5.09 M/UL (4.70-6.10); RED CELL DISTRIBUTION WIDTH 11.3 % (11.6-14.8); WHITE BLOOD COUNT 10.7 K/UL (4.8-10.8)
[2018-01-11] MEDS ORDERED: NaCl 3% 500ml 500 ML IV ONE (11:30)
[2018-01-11] MEDS ORDERED: PPD Tuberculin Skin Test 5TU IDERMAL ONE (12:00)
[2018-01-11 12:14] VITALS: BP 131/79
--- NOTE | 2018-01-11 14:52 | Nephrology Progress Note ---
Assessment/Plan Problem List: (1) Hyponatremia (2) Pneumonia (3) Diabetes (4) SIADH (syndrome of inappropriate ADH production) Assessment - Low Na likely SIADH ( High Rosanna , low Uric... - Pneumonia - Diabetes Plan Plan: PO Fluid restriction Monitor lytes trial of 3% saline and lasix per consultants Subjective ROS Limited/Unobtainable: No Constitutional: Reports: malaise Objective Objective Last 24 Hour Vital Signs Date Time Temp Pulse Resp B/P (MAP) Pulse Ox O2 Delivery O2 Flow Rate FiO2 01/11/18 13:34 98.2 01/11/18 12:55 Room Air 01/11/18 12:14 98.2 106 20 131/79 100 98.2 01/11/18 08:46 Room Air 01/11/18 08:09 99.3 104 20 131/81 96 99.3 01/11/18 07:27 105 22 Room Air 21 01/11/18 04:14 99.1 101 20 135/78 94 Room Air 99.1 01/11/18 00:00 99.9 20 129/86 95 Room Air 99.9 01/10/18 20:06 99.0 78 20 119/67 95 Room Air 99.0 01/10/18 20:05 75 18 Room Air 01/10/18 16:33 99.5 01/10/18 15:51 99.9 72 20 105/65 96 99.9 01/10/18 15:34 99.9 Intake and Output 01/10/18 01/11/18 19:00 07:00 Intake Total 771.7 ml 393.3 ml Output Total 800 ml Balance 771.7 ml -406.7 ml Intake Oral 480 ml 100 ml IV Total 291.7 ml 293.3 ml Output Urine Total 800 ml # Voids 2 Laboratory Tests 01/11/18 06:10: White Blood Count 8.6, Red Blood Count 4.97, Hemoglobin 15.1, Hematocrit 42.0, Mean Corpuscular Volume 84, Mean Corpuscular Hemoglobin 30.3, Mean Corpuscular Hemoglobin Concent 35.9, Red Cell Distribution Width 11.0L, Platelet Count 226, Mean Platelet Volume 6.1L, Neutrophils (%) (Auto) 82.2H, Lymphocytes (%) (Auto) 10.7L, Monocytes (%) (Auto) 6.0, Eosinophils (%) (Auto) 0.4, Basophils (%) (Auto ) 0.6, Sodium Level 128L, Potassium Level 4.0, Chloride Level 95L, Carbon Dioxide Level 27, Anion Gap 7, Blood Urea Nitrogen 11, Creatinine 1.0, Estimat Glomerular Filtration Rate > 60, Glucose Level 189H, Uric Acid 2.5L, Calcium Level 8.3L, Phosphorus Level 2.8, Magnesium Level 2.0, Total Bilirubin 0.7, Aspartate Amino Transf (AST/SGOT) 24, Alanine Aminotransferase (ALT/SGPT) 48, Alkaline Phosphatase 97, Total Protein 8.0, Albumin 2.4L, Globulin 5.6, Albumin/ Globulin Ratio 0.4L 01/11/18 10:35: White Blood Count 10.7, Red Blood Count 5.09, Hemoglobin 15.2, Hematocrit 42.9, Mean Corpuscular Volume 84, Mean Corpuscular Hemoglobin 29.8, Mean Corpuscular Hemoglobin Concent 35.3, Red Cell Distribution Width 11.3L, Platelet Count 236, Mean Platelet Volume 5.7L, Neutrophils (%) (Auto) 82.4H, Lymphocytes (%) (Auto) 10.4L, Monocytes (%) (Auto) 6.4, Eosinophils (%) (Auto) 0.2, Basophils (%) (Auto ) 0.5, Lactate Dehydrogenase 233, Blastomyces Ab Immunodiffusion [Pending], Histoplasma Mycelial Antibody [Pending], Histoplasma Antibody w Mycelial Ag [ Pending], Histoplasma Antibody with Yeast Ag [Pending], TB Test (T-Spot) [ Pending], TB Test Nil Control (T-Spot) [Pending], TB Test Panel A (T-Spot) [ Pending], TB Test Panel B (T-Spot) [Pending], TB Test Positive Control (T-Spot) [Pending] Height (Feet): 4 Height (Inches): 11.00 Weight (Pounds): 139 General Appearance: no apparent distress Cardiovascular: tachycardia Respiratory/Chest: decreased breath sounds Objective no change SERA SHEETS Jan 11, 2018 14:52
--- NOTE | 2018-01-11 15:26 | Pulmonology Progress Note ---
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 Subjective ROS Limited/Unobtainable: No Constitutional: Reports: no symptoms HEENT: Repors: no symptoms Respiratory: Reports: no symptoms Allergies: Coded Allergies: No Known Allergies (Unverified , 01/08/18) Objective Last 24 Hour Vital Signs Date Time Temp Pulse Resp B/P (MAP) Pulse Ox O2 Delivery O2 Flow Rate FiO2 01/11/18 14:33 98.2 01/11/18 13:34 98.2 01/11/18 12:55 Room Air 01/11/18 12:14 98.2 106 20 131/79 100 98.2 01/11/18 08:46 Room Air 01/11/18 08:09 99.3 104 20 131/81 96 99.3 01/11/18 07:27 105 22 Room Air 21 01/11/18 04:14 99.1 101 20 135/78 94 Room Air 99.1 01/11/18 00:00 99.9 20 129/86 95 Room Air 99.9 01/10/18 20:06 99.0 78 20 119/67 95 Room Air 99.0 01/10/18 20:05 75 18 Room Air 01/10/18 15:51 99.9 72 20 105/65 96 99.9 01/10/18 15:34 99.9 Intake and Output 01/10/18 01/11/18 19:00 07:00 Intake Total 771.7 ml 393.3 ml Output Total 800 ml Balance 771.7 ml -406.7 ml Intake Oral 480 ml 100 ml IV Total 291.7 ml 293.3 ml Output Urine Total 800 ml # Voids 2 Objective General Appearance: no apparent distress Head: normocephalic, atraumatic Eyes: bilateral eye PERRL, bilateral eye EOMI ENT: normal pharynx, no angioedema Neck: supple, thyroid normal Respiratory: lungs clear, normal breath sounds Cardiovascular #1: regular rate, rhythm Gastrointestinal: non tender, soft Microbiology Date/Time Source Procedure Growth Status 01/08/18 22:25 Blood Blood Culture - Preliminary NO GROWTH AFTER 48 HOURS Resulted 01/08/18 22:18 Blood Blood Culture - Preliminary NO GROWTH AFTER 48 HOURS Resulted 01/09/18 10:30 Sputum Gram Stain - Final Complete 01/09/18 10:30 Sputum Sputum Culture - Final NORMAL UPPER RESPIRATORY SYDNEE AT 48 ... Complete 01/08/18 22:29 Nasal Nares Influenza Types A,B Antigen (CHRISSY) - Final Complete Laboratory Tests 01/11/18 06:10: White Blood Count 8.6, Red Blood Count 4.97, Hemoglobin 15.1, Hematocrit 42.0, Mean Corpuscular Volume 84, Mean Corpuscular Hemoglobin 30.3, Mean Corpuscular Hemoglobin Concent 35.9, Red Cell Distribution Width 11.0L, Platelet Count 226, Mean Platelet Volume 6.1L, Neutrophils (%) (Auto) 82.2H, Lymphocytes (%) (Auto) 10.7L, Monocytes (%) (Auto) 6.0, Eosinophils (%) (Auto) 0.4, Basophils (%) (Auto ) 0.6, Sodium Level 128L, Potassium Level 4.0, Chloride Level 95L, Carbon Dioxide Level 27, Anion Gap 7, Blood Urea Nitrogen 11, Creatinine 1.0, Estimat Glomerular Filtration Rate > 60, Glucose Level 189H, Uric Acid 2.5L, Calcium Level 8.3L, Phosphorus Level 2.8, Magnesium Level 2.0, Total Bilirubin 0.7, Aspartate Amino Transf (AST/SGOT) 24, Alanine Aminotransferase (ALT/SGPT) 48, Alkaline Phosphatase 97, Total Protein 8.0, Albumin 2.4L, Globulin 5.6, Albumin/ Globulin Ratio 0.4L 01/11/18 10:35: White Blood Count 10.7, Red Blood Count 5.09, Hemoglobin 15.2, Hematocrit 42.9, Mean Corpuscular Volume 84, Mean Corpuscular Hemoglobin 29.8, Mean Corpuscular Hemoglobin Concent 35.3, Red Cell Distribution Width 11.3L, Platelet Count 236, Mean Platelet Volume 5.7L, Neutrophils (%) (Auto) 82.4H, Lymphocytes (%) (Auto) 10.4L, Monocytes (%) (Auto) 6.4, Eosinophils (%) (Auto) 0.2, Basophils (%) (Auto ) 0.5, Lactate Dehydrogenase 233, Blastomyces Ab Immunodiffusion [Pending], Histoplasma Mycelial Antibody [Pending], Histoplasma Antibody w Mycelial Ag [ Pending], Histoplasma Antibody with Yeast Ag [Pending], TB Test (T-Spot) [ Pending], TB Test Nil Control (T-Spot) [Pending], TB Test Panel A (T-Spot) [ Pending], TB Test Panel B (T-Spot) [Pending], TB Test Positive Control (T-Spot) [Pending] Current Medications Medications (Trade) Dose Ordered Sig/Lida Route PRN Reason Start Time Stop Time Status Last Admin Dose Admin Acetaminophen (Tylenol) 650 mg Q4H PRN ORAL Mild Pain/Temp > 100.5 01/10/18 12:15 02/09/18 12:14 01/11/18 13:34 Albuterol/ Ipratropium (Albuterol/ Ipratropium) 3 ml EVERY 4 HOURS PRN HHN Shortness of Breath 01/09/18 06:30 01/14/18 06:29 Cefepime HCl 2 gm/ Sodium Chloride 110 ml @ 220 mls/hr EVERY 12 HOURS IV 01/09/18 09:00 01/16/18 23:59 01/11/18 10:43 Dextrose (Dextrose 50%) STAT PRN IV Hypoglycemia 01/09/18 06:30 02/08/18 06:29 Furosemide (Lasix) 10 mg EVERY 6 HOURS IV 01/10/18 18:00 02/09/18 17:59 01/11/18 13:00 Heparin Sodium (Porcine) (Heparin 5000 units/ml) 5,000 units EVERY 12 HOURS SUBQ 01/09/18 09:00 02/08/18 08:59 01/11/18 08:56 Insulin Aspart (NovoLOG) BEFORE MEALS AND HS SUBQ 01/09/18 06:30 02/08/18 06:29 01/11/18 12:02 Lansoprazole (Prevacid) 30 mg DAILY ORAL 01/09/18 16:30 02/08/18 16:29 01/11/18 08:51 Ondansetron HCl (Zofran) 4 mg Q6H PRN IVP Nausea & Vomiting 01/09/18 06:30 02/08/18 06:29 Polyethylene Glycol (Miralax) 17 gm DAILYPRN PRN ORAL Constipation 01/09/18 06:30 3/23/18 06:29 Promethazine HCl/ Codeine (Phenergan with Codeine) 5 ml Q4H PRN ORAL For Cough 01/09/18 06:30 02/08/18 06:29 Sodium Chloride 500 ml @ 30 mls/hr ONCE ONCE IV 01/11/18 11:30 01/12/18 04:09 01/11/18 11:59 Vancomycin HCl (Vanco rx to dose) 1 ea DAILY PRN MISC PRN RX TO DOSE PROTOCOL 01/09/18 15:45 02/08/18 15:44 Vancomycin HCl 1 gm/Dextrose 275 ml @ 183.3 mls/ hr Q24H IVPB 01/09/18 07:00 01/14/18 06:59 01/11/18 05:55 BRENDON MEEHAN Jan 11, 2018 15:26
[2018-01-11 16:00] VITALS: BP 111/74
[2018-01-11 20:00] VITALS: BP 117/73
--- NOTE | 2018-01-11 20:21 | General Progress Note ---
Assessment/Plan Problem List: (1) Diabetes ICD Codes: E11.9 - Type 2 diabetes mellitus without complications SNOMED: 26998011 Qualifiers: Qualified Codes: E11.8 - Type 2 diabetes mellitus with unspecified complications (2) Hyponatremia ICD Codes: E87.1 - Hypo-osmolality and hyponatremia SNOMED: 37653981 (3) Pneumonia ICD Codes: J18.9 - Pneumonia, unspecified organism SNOMED: 260443250 Qualifiers: Qualified Codes: J18.1 - Lobar pneumonia, unspecified organism (4) Fever ICD Codes: R50.9 - Fever, unspecified SNOMED: 810795276 Status: progressing Assessment/Plan low sodium improving pna improving dc planning Subjective ROS Limited/Unobtainable: Yes Constitutional: Reports: no symptoms Allergies: Coded Allergies: No Known Allergies (Unverified , 01/08/18) Objective Last 24 Hour Vital Signs Date Time Temp Pulse Resp B/P (MAP) Pulse Ox O2 Delivery O2 Flow Rate FiO2 01/11/18 16:37 Room Air 01/11/18 16:00 98.0 102 19 111/74 94 98.0 01/11/18 14:33 98.2 01/11/18 13:34 98.2 01/11/18 12:55 Room Air 01/11/18 12:14 98.2 106 20 131/79 100 98.2 01/11/18 08:46 Room Air 01/11/18 08:09 99.3 104 20 131/81 96 99.3 01/11/18 07:27 105 22 Room Air 21 01/11/18 04:14 99.1 101 20 135/78 94 Room Air 99.1 01/11/18 00:00 99.9 20 129/86 95 Room Air 99.9 Intake and Output 01/10/18 01/11/18 19:00 07:00 Intake Total 771.7 ml 393.3 ml Output Total 800 ml Balance 771.7 ml -406.7 ml Intake Oral 480 ml 100 ml IV Total 291.7 ml 293.3 ml Output Urine Total 800 ml # Voids 2 Laboratory Tests 01/11/18 06:10: White Blood Count 8.6, Red Blood Count 4.97, Hemoglobin 15.1, Hematocrit 42.0, Mean Corpuscular Volume 84, Mean Corpuscular Hemoglobin 30.3, Mean Corpuscular Hemoglobin Concent 35.9, Red Cell Distribution Width 11.0L, Platelet Count 226, Mean Platelet Volume 6.1L, Neutrophils (%) (Auto) 82.2H, Lymphocytes (%) (Auto) 10.7L, Monocytes (%) (Auto) 6.0, Eosinophils (%) (Auto) 0.4, Basophils (%) (Auto ) 0.6, Sodium Level 128L, Potassium Level 4.0, Chloride Level 95L, Carbon Dioxide Level 27, Anion Gap 7, Blood Urea Nitrogen 11, Creatinine 1.0, Estimat Glomerular Filtration Rate > 60, Glucose Level 189H, Uric Acid 2.5L, Calcium Level 8.3L, Phosphorus Level 2.8, Magnesium Level 2.0, Total Bilirubin 0.7, Aspartate Amino Transf (AST/SGOT) 24, Alanine Aminotransferase (ALT/SGPT) 48, Alkaline Phosphatase 97, Total Protein 8.0, Albumin 2.4L, Globulin 5.6, Albumin/ Globulin Ratio 0.4L 01/11/18 10:35: White Blood Count 10.7, Red Blood Count 5.09, Hemoglobin 15.2, Hematocrit 42.9, Mean Corpuscular Volume 84, Mean Corpuscular Hemoglobin 29.8, Mean Corpuscular Hemoglobin Concent 35.3, Red Cell Distribution Width 11.3L, Platelet Count 236, Mean Platelet Volume 5.7L, Neutrophils (%) (Auto) 82.4H, Lymphocytes (%) (Auto) 10.4L, Monocytes (%) (Auto) 6.4, Eosinophils (%) (Auto) 0.2, Basophils (%) (Auto ) 0.5, Lactate Dehydrogenase 233, Blastomyces Ab Immunodiffusion [Pending], Histoplasma Mycelial Antibody [Pending], Histoplasma Antibody w Mycelial Ag [ Pending], Histoplasma Antibody with Yeast Ag [Pending], TB Test (T-Spot) [ Pending], TB Test Nil Control (T-Spot) [Pending], TB Test Panel A (T-Spot) [ Pending], TB Test Panel B (T-Spot) [Pending], TB Test Positive Control (T-Spot) [Pending] Height (Feet): 4 Height (Inches): 11.00 Weight (Pounds): 139 Neck: supple Cardiovascular: normal rate Respiratory/Chest: lungs clear Echo Baez MD Jan 11, 2018 20:21
[2018-01-12 04:05] VITALS: BP 135/73
[2018-01-12] MEDS: NovoLOG Insulin Flexpen SUBQ SCH ×4 (05:54→20:07)
[2018-01-12 07:30] LABS: ALANINE AMINOTRANSFERASE 43 U/L (12-78); ALBUMIN 2.2 G/DL (3.4-5.0); ALBUMIN/GLOBULIN RATIO 0.4 (1.0-2.7); ALKALINE PHOSPHATASE 84 U/L (46-116); ANION GAP 6 mmol/L (5-15); ASPARTATE AMINO TRANSFERASE 22 U/L (15-37); BILIRUBIN,TOTAL 0.6 MG/DL (0.2-1.0); BLOOD UREA NITROGEN 13 mg/dL (7-18); CALCIUM 8.2 MG/DL (8.5-10.1); CARBON DIOXIDE 28 MMOL/L (21-32); CHLORIDE 96 MMOL/L (98-107); CREATININE 0.9 MG/DL (0.55-1.30); PHOSPHORUS 2.5 MG/DL (2.5-4.9); POTASSIUM 3.6 MMOL/L (3.5-5.1); SODIUM 130 MMOL/L (136-145)
[2018-01-12 08:00] VITALS: BP 110/78
[2018-01-12] MEDS: Vancomycin 1 GM in D5W 275 ML IVPB SCH ×2 (08:55→20:09)
[2018-01-12] MEDS: Heparin 5000 units/ml inj SUBQ SCH ×2 (09:14→20:08)
[2018-01-12] MEDS: Cefepime HCl 2 GM in NS 110 ML IV SCH ×2 (10:25→22:11)
--- NOTE | 2018-01-12 10:33 | Pulmonology Progress Note ---
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 continue current abx Subjective ROS Limited/Unobtainable: No Constitutional: Reports: no symptoms HEENT: Repors: no symptoms Respiratory: Reports: no symptoms Allergies: Coded Allergies: No Known Allergies (Unverified , 01/08/18) Objective Last 24 Hour Vital Signs Date Time Temp Pulse Resp B/P (MAP) Pulse Ox O2 Delivery O2 Flow Rate FiO2 01/12/18 09:15 93 20 Room Air 21 01/12/18 09:00 98.0 98.0 01/12/18 08:00 99.1 95 18 110/78 97 99.1 01/12/18 07:24 99.1 01/12/18 06:25 100.8 01/12/18 06:10 100.8 100.8 01/12/18 04:05 102.4 98 20 135/73 93 Room Air 102.4 01/12/18 04:05 93 Room Air 01/11/18 20:00 99.1 94 18 117/73 94 Room Air 99.1 01/11/18 19:30 101 20 Room Air 21 01/11/18 16:37 Room Air 01/11/18 16:00 98.0 102 19 111/74 94 98.0 01/11/18 13:34 98.2 01/11/18 12:55 Room Air 01/11/18 12:14 98.2 106 20 131/79 100 98.2 Intake and Output 01/11/18 01/12/18 19:00 07:00 Intake Total 1050 ml 720 ml Output Total 800 ml 940 ml Balance 250 ml -220 ml Intake Oral 620 ml 320 ml IV Total 430 ml 400 ml Output Urine Total 800 ml 940 ml # Voids 2 3 Objective General Appearance: no apparent distress Head: normocephalic, atraumatic Eyes: bilateral eye PERRL, bilateral eye EOMI ENT: normal pharynx, no angioedema Neck: supple, thyroid normal Respiratory: lungs clear, normal breath sounds Cardiovascular #1: regular rate, rhythm Gastrointestinal: non tender, soft Laboratory Tests 01/11/18 10:35: White Blood Count 10.7, Red Blood Count 5.09, Hemoglobin 15.2, Hematocrit 42.9, Mean Corpuscular Volume 84, Mean Corpuscular Hemoglobin 29.8, Mean Corpuscular Hemoglobin Concent 35.3, Red Cell Distribution Width 11.3L, Platelet Count 236, Mean Platelet Volume 5.7L, Neutrophils (%) (Auto) 82.4H, Lymphocytes (%) (Auto) 10.4L, Monocytes (%) (Auto) 6.4, Eosinophils (%) (Auto) 0.2, Basophils (%) (Auto ) 0.5, Lactate Dehydrogenase 233, Blastomyces Ab Immunodiffusion [Pending], Histoplasma Mycelial Antibody [Pending], Histoplasma Antibody w Mycelial Ag [ Pending], Histoplasma Antibody with Yeast Ag [Pending], TB Test (T-Spot) [ Pending], TB Test Nil Control (T-Spot) [Pending], TB Test Panel A (T-Spot) [ Pending], TB Test Panel B (T-Spot) [Pending], TB Test Positive Control (T-Spot) [Pending] 01/12/18 06:00: Sodium Level 130L, Potassium Level 3.6, Chloride Level 96L, Carbon Dioxide Level 28, Anion Gap 6, Blood Urea Nitrogen 13, Creatinine 0.9, Estimat Glomerular Filtration Rate > 60, Glucose Level 180H, Uric Acid 2.2L, Calcium Level 8.2L, Phosphorus Level 2.5, Magnesium Level 2.1, Total Bilirubin 0.6, Aspartate Amino Transf (AST/SGOT) 22, Alanine Aminotransferase (ALT/SGPT) 43, Alkaline Phosphatase 84, Total Protein 7.2, Albumin 2.2L, Globulin 5.0, Albumin/ Globulin Ratio 0.4L, Vancomycin Level Trough 2.1L, Cryptococcus Antigen [Pending ] Current Medications Medications (Trade) Dose Ordered Sig/Lida Route PRN Reason Start Time Stop Time Status Last Admin Dose Admin Acetaminophen (Tylenol) 650 mg Q4H PRN ORAL Mild Pain/Temp > 100.5 01/10/18 12:15 02/09/18 12:14 01/12/18 06:25 Albuterol/ Ipratropium (Albuterol/ Ipratropium) 3 ml EVERY 4 HOURS PRN HHN Shortness of Breath 01/09/18 06:30 2/26/18 06:29 Cefepime HCl 2 gm/ Sodium Chloride 110 ml @ 220 mls/hr EVERY 12 HOURS IV 01/09/18 09:00 01/16/18 23:59 01/12/18 10:25 Dextrose (Dextrose 50%) STAT PRN IV Hypoglycemia 01/09/18 06:30 02/08/18 06:29 Furosemide (Lasix) 10 mg EVERY 6 HOURS IV 01/10/18 18:00 02/09/18 17:59 01/12/18 05:53 Heparin Sodium (Porcine) (Heparin 5000 units/ml) 5,000 units EVERY 12 HOURS SUBQ 01/09/18 09:00 02/08/18 08:59 01/12/18 09:14 Insulin Aspart (NovoLOG) BEFORE MEALS AND HS SUBQ 01/09/18 06:30 02/08/18 06:29 01/12/18 05:54 Lansoprazole (Prevacid) 30 mg DAILY ORAL 01/09/18 16:30 02/08/18 16:29 01/12/18 09:06 Ondansetron HCl (Zofran) 4 mg Q6H PRN IVP Nausea & Vomiting 01/09/18 06:30 02/08/18 06:29 Polyethylene Glycol (Miralax) 17 gm DAILYPRN PRN ORAL Constipation 01/09/18 06:30 02/08/18 06:29 Promethazine HCl/ Codeine (Phenergan with Codeine) 5 ml Q4H PRN ORAL For Cough 01/09/18 06:30 02/08/18 06:29 Vancomycin HCl (Vanco rx to dose) 1 ea DAILY PRN MISC PRN RX TO DOSE PROTOCOL 01/09/18 15:45 02/08/18 15:44 Vancomycin HCl 1 gm/Dextrose 275 ml @ 183.3 mls/ hr Q12H IVPB 01/12/18 08:00 01/17/18 07:59 01/12/18 08:55 BRENDON MEEHAN Jan 12, 2018 10:33
--- NOTE | 2018-01-12 11:48 | Nephrology Progress Note ---
Assessment/Plan Problem List: (1) Hyponatremia (2) Pneumonia (3) Diabetes (4) SIADH (syndrome of inappropriate ADH production) Assessment - Low Na likely SIADH ( High Rosanna , low Uric... - Pneumonia - Diabetes Plan Plan: PO Fluid restriction Monitor lytes trial of 3% saline and lasix per consultants Subjective ROS Limited/Unobtainable: No Constitutional: Reports: malaise Objective Objective Last 24 Hour Vital Signs Date Time Temp Pulse Resp B/P (MAP) Pulse Ox O2 Delivery O2 Flow Rate FiO2 01/12/18 09:15 93 20 Room Air 21 01/12/18 09:00 98.0 98.0 01/12/18 08:00 99.1 95 18 110/78 97 99.1 01/12/18 07:24 99.1 01/12/18 06:25 100.8 01/12/18 06:10 100.8 100.8 01/12/18 04:05 102.4 98 20 135/73 93 Room Air 102.4 01/12/18 04:05 93 Room Air 01/11/18 20:00 99.1 94 18 117/73 94 Room Air 99.1 01/11/18 19:30 101 20 Room Air 21 01/11/18 16:37 Room Air 01/11/18 16:00 98.0 102 19 111/74 94 98.0 01/11/18 13:34 98.2 01/11/18 12:55 Room Air 01/11/18 12:14 98.2 106 20 131/79 100 98.2 Intake and Output 01/11/18 01/12/18 19:00 07:00 Intake Total 1050 ml 720 ml Output Total 800 ml 940 ml Balance 250 ml -220 ml Intake Oral 620 ml 320 ml IV Total 430 ml 400 ml Output Urine Total 800 ml 940 ml # Voids 2 3 Laboratory Tests 01/12/18 06:00: Sodium Level 130L, Potassium Level 3.6, Chloride Level 96L, Carbon Dioxide Level 28, Anion Gap 6, Blood Urea Nitrogen 13, Creatinine 0.9, Estimat Glomerular Filtration Rate > 60, Glucose Level 180H, Uric Acid 2.2L, Calcium Level 8.2L, Phosphorus Level 2.5, Magnesium Level 2.1, Total Bilirubin 0.6, Aspartate Amino Transf (AST/SGOT) 22, Alanine Aminotransferase (ALT/SGPT) 43, Alkaline Phosphatase 84, Total Protein 7.2, Albumin 2.2L, Globulin 5.0, Albumin/ Globulin Ratio 0.4L, Vancomycin Level Trough 2.1L, Cryptococcus Antigen [Pending ] Height (Feet): 4 Height (Inches): 11.00 Weight (Pounds): 139 General Appearance: no apparent distress Objective no change SERA SHEETS Jan 12, 2018 11:48
[2018-01-12 12:00] VITALS: BP 128/71
[2018-01-12] MEDS ORDERED: NaCl 3% 500ml 500 ML IV ONE (12:30)
[2018-01-12 16:00] VITALS: BP 138/85
[2018-01-12 17:37] VITALS: BP 139/90
[2018-01-12 19:25] LABS: BASOPHILS % (AUTO) 0.6 % (0.0-2.0); EOSINOPHILS % (AUTO) 0.1 % (0.0-3.0); HEMATOCRIT 40.1 % (42.0-52.0); HEMOGLOBIN 14.4 G/DL (14.2-18.0); MEAN CORPUSCULAR VOLUME 84 FL (80-99); MONOCYTES % (AUTO) 6.1 % (1.0-10.0); NEUTROPHILS % (AUTO) 84.1 % (45.0-75.0); PLATELET COUNT 241 K/UL (150-450); RED BLOOD COUNT 4.76 M/UL (4.70-6.10); RED CELL DISTRIBUTION WIDTH 11.2 % (11.6-14.8); WHITE BLOOD COUNT 9.3 K/UL (4.8-10.8)
[2018-01-12 19:38] LABS: ANION GAP 6 mmol/L (5-15); BLOOD UREA NITROGEN 12 mg/dL (7-18); CARBON DIOXIDE 28 MMOL/L (21-32); CHLORIDE 92 MMOL/L (98-107); CREATININE 0.9 MG/DL (0.55-1.30); POTASSIUM 3.8 MMOL/L (3.5-5.1); SODIUM 126 MMOL/L (136-145)
[2018-01-12 20:00] VITALS: BP 114/72
--- NOTE | 2018-01-12 20:35 | General Progress Note ---
Assessment/Plan Problem List: (1) Diabetes ICD Codes: E11.9 - Type 2 diabetes mellitus without complications SNOMED: 37622965 Qualifiers: Qualified Codes: E11.8 - Type 2 diabetes mellitus with unspecified complications (2) Hyponatremia ICD Codes: E87.1 - Hypo-osmolality and hyponatremia SNOMED: 96409906 (3) Pneumonia ICD Codes: J18.9 - Pneumonia, unspecified organism SNOMED: 945832442 Qualifiers: Qualified Codes: J18.1 - Lobar pneumonia, unspecified organism (4) Fever ICD Codes: R50.9 - Fever, unspecified SNOMED: 133812557 Status: progressing Assessment/Plan low sodium improving pna improving r/o siadh reviewed chart and labs no sob Subjective ROS Limited/Unobtainable: Yes Constitutional: Reports: no symptoms Allergies: Coded Allergies: No Known Allergies (Unverified , 01/08/18) Objective Last 24 Hour Vital Signs Date Time Temp Pulse Resp B/P (MAP) Pulse Ox O2 Delivery O2 Flow Rate FiO2 01/12/18 19:29 98 18 Room Air 21 01/12/18 18:47 102.8 01/12/18 17:48 101.0 01/12/18 17:37 101.1 102 139/90 101.1 01/12/18 17:15 Room Air 01/12/18 16:00 98.7 95 18 138/85 97 98.7 01/12/18 13:44 Room Air 01/12/18 12:00 98.8 79 18 128/71 98 98.8 01/12/18 09:15 93 20 Room Air 21 01/12/18 09:00 98.0 98.0 01/12/18 08:00 Room Air 01/12/18 08:00 99.1 95 18 110/78 97 99.1 01/12/18 06:25 100.8 01/12/18 06:10 100.8 100.8 01/12/18 04:05 102.4 98 20 135/73 93 Room Air 102.4 01/12/18 04:05 93 Room Air Intake and Output 01/11/18 01/12/18 19:00 07:00 Intake Total 1050 ml 720 ml Output Total 800 ml 940 ml Balance 250 ml -220 ml Intake Oral 620 ml 320 ml IV Total 430 ml 400 ml Output Urine Total 800 ml 940 ml # Voids 2 3 Laboratory Tests 01/12/18 06:00: Sodium Level 130L, Potassium Level 3.6, Chloride Level 96L, Carbon Dioxide Level 28, Anion Gap 6, Blood Urea Nitrogen 13, Creatinine 0.9, Estimat Glomerular Filtration Rate > 60, Glucose Level 180H, Uric Acid 2.2L, Calcium Level 8.2L, Phosphorus Level 2.5, Magnesium Level 2.1, Total Bilirubin 0.6, Aspartate Amino Transf (AST/SGOT) 22, Alanine Aminotransferase (ALT/SGPT) 43, Alkaline Phosphatase 84, Total Protein 7.2, Albumin 2.2L, Globulin 5.0, Albumin/ Globulin Ratio 0.4L, Vancomycin Level Trough 2.1L, Cryptococcus Antigen [Pending ] 01/12/18 19:10: Sodium Level 126L, Potassium Level 3.8, Chloride Level 92L, Carbon Dioxide Level 28, Anion Gap 6, Blood Urea Nitrogen 12, Creatinine 0.9, Estimat Glomerular Filtration Rate > 60, Glucose Level 236H, Calcium Level 8.0L, White Blood Count 9.3, Red Blood Count 4.76, Hemoglobin 14.4, Hematocrit 40.1L, Mean Corpuscular Volume 84, Mean Corpuscular Hemoglobin 30.2, Mean Corpuscular Hemoglobin Concent 35.8, Red Cell Distribution Width 11.2L, Platelet Count 241, Mean Platelet Volume 6.0L, Neutrophils (%) (Auto) 84.1H, Lymphocytes (%) (Auto) 9.0L, Monocytes (%) (Auto) 6.1, Eosinophils (%) (Auto) 0.1, Basophils (%) (Auto ) 0.6 Height (Feet): 4 Height (Inches): 11.00 Weight (Pounds): 139 Neck: supple Cardiovascular: normal rate Respiratory/Chest: lungs clear Abdomen: soft Echo Baez MD Jan 12, 2018 20:35
[2018-01-13] VITALS: BP 144/82
[2018-01-13 04:00] VITALS: BP 136/79
[2018-01-13] MEDS: NovoLOG Insulin Flexpen SUBQ SCH ×4 (05:46→20:17)
[2018-01-13 07:32] LABS: BASOPHILS % (AUTO) 0.6 % (0.0-2.0); EOSINOPHILS % (AUTO) 0.7 % (0.0-3.0); HEMATOCRIT 37.5 % (42.0-52.0); HEMOGLOBIN 13.7 G/DL (14.2-18.0); LYMPHOCYTES % (AUTO) 13.7 % (20.0-45.0); MEAN CORPUSCULAR VOLUME 84 FL (80-99); MONOCYTES % (AUTO) 9.2 % (1.0-10.0); NEUTROPHILS % (AUTO) 75.8 % (45.0-75.0); PLATELET COUNT 207 K/UL (150-450); RED BLOOD COUNT 4.44 M/UL (4.70-6.10); RED CELL DISTRIBUTION WIDTH 11.4 % (11.6-14.8); WHITE BLOOD COUNT 7.5 K/UL (4.8-10.8)
[2018-01-13 07:40] LABS: ALANINE AMINOTRANSFERASE 48 U/L (12-78); ALBUMIN 2.3 G/DL (3.4-5.0); ALBUMIN/GLOBULIN RATIO 0.5 (1.0-2.7); ALKALINE PHOSPHATASE 82 U/L (46-116); ANION GAP 4 mmol/L (5-15); ASPARTATE AMINO TRANSFERASE 24 U/L (15-37); BILIRUBIN,TOTAL 0.6 MG/DL (0.2-1.0); BLOOD UREA NITROGEN 13 mg/dL (7-18); CALCIUM 8.3 MG/DL (8.5-10.1); CARBON DIOXIDE 31 MMOL/L (21-32); CHLORIDE 96 MMOL/L (98-107); CREATININE 0.9 MG/DL (0.55-1.30); PHOSPHORUS 2.7 MG/DL (2.5-4.9); POTASSIUM 3.8 MMOL/L (3.5-5.1); SODIUM 131 MMOL/L (136-145)
[2018-01-13 07:59] VITALS: BP 139/82
[2018-01-13] MEDS: Vancomycin 1 GM in D5W 275 ML IVPB SCH ×2 (08:35→20:13)
[2018-01-13] MEDS: Heparin 5000 units/ml inj SUBQ SCH ×2 (08:36→20:15)
--- NOTE | 2018-01-13 09:34 | Diagnostic Imaging Report ---
Indication: Pain Technique: XRAY Chest 1v Comparison:01/08/2018 Findings: Prior examination increasing airspace disease is noted in the right lower lobe and right upper lobe. The heart is normal in size. Left lung remains clear. Impression: Increasing pneumonia in the right lung involving the right upper lobe and right lower lobe. The above report is concordant with preliminary reading by [facility] with some difference.
[2018-01-13] MEDS ORDERED: NaCl 3% 500ml 500 ML IV ONE (11:00)
[2018-01-13] MEDS: Cefepime HCl 2 GM in NS 110 ML IV SCH ×2 (11:22→21:48)
--- NOTE | 2018-01-13 11:28 | Nephrology Progress Note ---
Assessment/Plan Problem List: (1) Hyponatremia (2) Pneumonia (3) Diabetes (4) SIADH (syndrome of inappropriate ADH production) Assessment - Low Na likely SIADH ( High Rosanna , low Uric... - Pneumonia - Diabetes Plan Plan: PO Fluid restriction Monitor lytes trial of 3% saline and lasix per consultants Subjective ROS Limited/Unobtainable: No Objective Objective Last 24 Hour Vital Signs Date Time Temp Pulse Resp B/P (MAP) Pulse Ox O2 Delivery O2 Flow Rate FiO2 01/13/18 09:39 98.8 01/13/18 08:40 100.2 01/13/18 08:30 83 16 Room Air 01/13/18 07:59 102.2 80 18 139/82 95 Room Air 102.2 01/13/18 04:00 98.4 79 20 136/79 96 Room Air 98.4 01/13/18 01:24 99.0 01/13/18 00:00 99.0 89 18 144/82 93 Room Air 99.0 01/12/18 20:00 98.2 77 20 114/72 95 Room Air 98.2 01/12/18 19:29 98 18 Room Air 21 01/12/18 17:48 101.0 01/12/18 17:37 101.1 102 139/90 101.1 01/12/18 17:15 Room Air 01/12/18 16:00 98.7 95 18 138/85 97 98.7 01/12/18 13:44 Room Air 01/12/18 12:00 98.8 79 18 128/71 98 98.8 Intake and Output 01/12/18 01/13/18 19:00 07:00 Intake Total 1185.0 ml 180 ml Output Total 400 ml Balance 785.0 ml 180 ml Intake Oral 600 ml IV Total 585.0 ml 180 ml Output Urine Total 400 ml # Voids 2 2 Laboratory Tests 01/12/18 19:10: White Blood Count 9.3, Red Blood Count 4.76, Hemoglobin 14.4, Hematocrit 40.1L, Mean Corpuscular Volume 84, Mean Corpuscular Hemoglobin 30.2, Mean Corpuscular Hemoglobin Concent 35.8, Red Cell Distribution Width 11.2L, Platelet Count 241, Mean Platelet Volume 6.0L, Neutrophils (%) (Auto) 84.1H, Lymphocytes (%) (Auto) 9.0L, Monocytes (%) (Auto) 6.1, Eosinophils (%) (Auto) 0.1, Basophils (%) (Auto ) 0.6, Sodium Level 126L, Potassium Level 3.8, Chloride Level 92L, Carbon Dioxide Level 28, Anion Gap 6, Blood Urea Nitrogen 12, Creatinine 0.9, Estimat Glomerular Filtration Rate > 60, Glucose Level 236H, Calcium Level 8.0L 01/13/18 05:00: White Blood Count 7.5, Red Blood Count 4.44L, Hemoglobin 13.7L, Hematocrit 37.5L , Mean Corpuscular Volume 84, Mean Corpuscular Hemoglobin 30.9, Mean Corpuscular Hemoglobin Concent 36.6H, Red Cell Distribution Width 11.4L, Platelet Count 207, Mean Platelet Volume 5.2L, Neutrophils (%) (Auto) 75.8H, Lymphocytes (%) (Auto) 13.7L, Monocytes (%) (Auto) 9.2, Eosinophils (%) (Auto) 0.7, Basophils (%) (Auto) 0.6, Sodium Level 131L, Potassium Level 3.8, Chloride Level 96L, Carbon Dioxide Level 31, Anion Gap 4L, Blood Urea Nitrogen 13, Creatinine 0.9, Estimat Glomerular Filtration Rate > 60, Glucose Level 177H, Calcium Level 8.3L, Uric Acid 1.7L, Phosphorus Level 2.7, Magnesium Level 2.3, Total Bilirubin 0.6, Aspartate Amino Transf (AST/SGOT) 24, Alanine Aminotransferase (ALT/SGPT) 48, Alkaline Phosphatase 82, Total Protein 7.3, Albumin 2.3L, Globulin 5.0, Albumin/Globulin Ratio 0.5L Height (Feet): 4 Height (Inches): 11.00 Weight (Pounds): 139 General Appearance: no apparent distress Respiratory/Chest: decreased breath sounds Objective no change SERA SHEETS Jan 13, 2018 11:28
[2018-01-13 11:38] VITALS: BP 126/72
--- NOTE | 2018-01-13 15:30 | Consultation ---
DATE OF CONSULTATION: 01/13/2018 INFECTIOUS DISEASES CONSULTATION CONSULTING PHYSICIAN: Dominic Linda M.D. PRIMARY ATTENDING PHYSICIAN: Echo Baez M.D. REASON FOR CONSULT: Pneumonia and TB. HISTORY OF PRESENT ILLNESS: The patient is a 62-year-old man, admitted on 01/08/2018 complaining of weakness and decreased appetite. He was diagnosed with pneumonia. He had diarrhea for two days. In the hospital, he was found to have pneumonia on chest x-ray. He started having fever that is up to 102.2 today, fever started yesterday. PAST MEDICAL HISTORY: Diabetes mellitus type 2. ALLERGIES: No known drug allergies. MEDICATIONS: Vancomycin, Lasix, Tylenol, Prevacid, cefepime, insulin, promethazine with codeine, Zofran, MiraLax, albuterol, and ipratropium inhaler. REVIEW OF SYSTEMS: He had fever in the past two days, but had night sweats at home, decreased appetite, weight loss. No significant coughing. No nausea, no vomiting, and no diarrhea in the hospital. SOCIAL HISTORY: Originally from [place] [facility] [facility] [place]. Nonsmoker. Social drinking. . Has five children. Currently not working. He was immigrated from [place] [facility] [facility] 30 years ago and did not return back there. FAMILY HISTORY: Denies any family history of TB. PHYSICAL EXAMINATION: VITAL SIGNS: Temperature 102.2, pulse 80, and blood pressure 139/82. GENERAL APPEARANCE: Seems to be thin, no acute distress. HEAD AND NECK: No teeth. Whitish tongue. HEART: S1 and S2 regular. LUNGS: Clear. ABDOMEN: Soft and nontender. EXTREMITIES: He has no edema. NEUROLOGIC: Awake, alert, and oriented. No focal signs. LABORATORY AND DIAGNOSTIC DATA: Blood culture x2 negative. Influenza A and B was negative. Sputum culture showed normal cecilia. Sodium 131, potassium 3.8, chloride 96, bicarbonate 31, BUN 13, creatinine 0.9, and glucose 177. WBC 7.5, hemoglobin 13.7, hematocrit 37.5, and platelets 207. CT scan of the chest showed consolidation of inferior right upper lobe. Likely community-acquired pneumonia. However, there is hilar adenopathy and evidence of granulomas in the right lung, cannot rule out reactivation of the TB. IMPRESSION: Pneumonia. We will try to rule out tuberculosis. The patient has hyponatremia, syndrome of inappropriate antidiuretic hormone secretion, has cholelithiasis, has diabetes mellitus, and oral candidiasis. RECOMMENDATION: We will continue with cefepime and IV vancomycin. We will follow up AFB and T-SPOT test. We will follow up histoplasma and TB test. We will order HIV test. At the end of my exam, I thank Dr. Baez for involving me in the care of this patient. Dominic Linda M.D. DR: LUIS JOB#: [id number] CC: JENNY
[2018-01-13 16:00] VITALS: BP 141/81
--- NOTE | 2018-01-13 17:40 | Pulmonology Progress Note ---
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 continue current abx Subjective ROS Limited/Unobtainable: No Constitutional: Reports: no symptoms HEENT: Repors: no symptoms Respiratory: Reports: no symptoms Allergies: Coded Allergies: No Known Allergies (Unverified , 01/08/18) Objective Last 24 Hour Vital Signs Date Time Temp Pulse Resp B/P (MAP) Pulse Ox O2 Delivery O2 Flow Rate FiO2 01/13/18 16:00 98.8 81 18 141/81 93 98.8 01/13/18 11:38 99.5 69 18 126/72 95 Room Air 99.5 01/13/18 09:39 98.8 01/13/18 08:40 100.2 01/13/18 08:30 83 16 Room Air 01/13/18 07:59 102.2 80 18 139/82 95 Room Air 102.2 01/13/18 04:00 98.4 79 20 136/79 96 Room Air 98.4 01/13/18 01:24 99.0 01/13/18 00:00 99.0 89 18 144/82 93 Room Air 99.0 01/12/18 20:00 98.2 77 20 114/72 95 Room Air 98.2 01/12/18 19:29 98 18 Room Air 21 01/12/18 17:48 101.0 Intake and Output 01/12/18 01/13/18 19:00 07:00 Intake Total 1185.0 ml 180 ml Output Total 400 ml Balance 785.0 ml 180 ml Intake Oral 600 ml IV Total 585.0 ml 180 ml Output Urine Total 400 ml # Voids 2 2 Objective General Appearance: no apparent distress Head: normocephalic, atraumatic Eyes: bilateral eye PERRL, bilateral eye EOMI ENT: normal pharynx, no angioedema Neck: supple, thyroid normal Respiratory: lungs clear, normal breath sounds Cardiovascular #1: regular rate, rhythm Gastrointestinal: non tender, soft Laboratory Tests 01/12/18 19:10: White Blood Count 9.3, Red Blood Count 4.76, Hemoglobin 14.4, Hematocrit 40.1L, Mean Corpuscular Volume 84, Mean Corpuscular Hemoglobin 30.2, Mean Corpuscular Hemoglobin Concent 35.8, Red Cell Distribution Width 11.2L, Platelet Count 241, Mean Platelet Volume 6.0L, Neutrophils (%) (Auto) 84.1H, Lymphocytes (%) (Auto) 9.0L, Monocytes (%) (Auto) 6.1, Eosinophils (%) (Auto) 0.1, Basophils (%) (Auto ) 0.6, Sodium Level 126L, Potassium Level 3.8, Chloride Level 92L, Carbon Dioxide Level 28, Anion Gap 6, Blood Urea Nitrogen 12, Creatinine 0.9, Estimat Glomerular Filtration Rate > 60, Glucose Level 236H, Calcium Level 8.0L 01/13/18 05:00: White Blood Count 7.5, Red Blood Count 4.44L, Hemoglobin 13.7L, Hematocrit 37.5L , Mean Corpuscular Volume 84, Mean Corpuscular Hemoglobin 30.9, Mean Corpuscular Hemoglobin Concent 36.6H, Red Cell Distribution Width 11.4L, Platelet Count 207, Mean Platelet Volume 5.2L, Neutrophils (%) (Auto) 75.8H, Lymphocytes (%) (Auto) 13.7L, Monocytes (%) (Auto) 9.2, Eosinophils (%) (Auto) 0.7, Basophils (%) (Auto) 0.6, Sodium Level 131L, Potassium Level 3.8, Chloride Level 96L, Carbon Dioxide Level 31, Anion Gap 4L, Blood Urea Nitrogen 13, Creatinine 0.9, Estimat Glomerular Filtration Rate > 60, Glucose Level 177H, Calcium Level 8.3L, Uric Acid 1.7L, Phosphorus Level 2.7, Magnesium Level 2.3, Total Bilirubin 0.6, Aspartate Amino Transf (AST/SGOT) 24, Alanine Aminotransferase (ALT/SGPT) 48, Alkaline Phosphatase 82, Total Protein 7.3, Albumin 2.3L, Globulin 5.0, Albumin/Globulin Ratio 0.5L Current Medications Medications (Trade) Dose Ordered Sig/Lida Route PRN Reason Start Time Stop Time Status Last Admin Dose Admin Acetaminophen (Tylenol) 650 mg Q4H PRN ORAL Mild Pain/Temp > 100.5 01/10/18 12:15 02/09/18 12:14 01/13/18 08:40 Albuterol/ Ipratropium (Albuterol/ Ipratropium) 3 ml EVERY 4 HOURS PRN HHN Shortness of Breath 01/09/18 06:30 01/14/18 06:29 Cefepime HCl 2 gm/ Sodium Chloride 110 ml @ 220 mls/hr EVERY 12 HOURS IV 01/09/18 09:00 01/16/18 23:59 01/13/18 11:22 Dextrose (Dextrose 50%) STAT PRN IV Hypoglycemia 01/09/18 06:30 02/08/18 06:29 Furosemide (Lasix) 20 mg Q8HR IV 01/13/18 14:00 02/12/18 13:59 01/13/18 14:35 Heparin Sodium (Porcine) (Heparin 5000 units/ml) 5,000 units EVERY 12 HOURS SUBQ 01/09/18 09:00 02/08/18 08:59 01/13/18 08:36 Insulin Aspart (NovoLOG) BEFORE MEALS AND HS SUBQ 01/09/18 06:30 02/08/18 06:29 01/13/18 17:00 Lansoprazole (Prevacid) 30 mg DAILY ORAL 01/09/18 16:30 02/08/18 16:29 01/13/18 08:35 Ondansetron HCl (Zofran) 4 mg Q6H PRN IVP Nausea & Vomiting 01/09/18 06:30 02/08/18 06:29 Polyethylene Glycol (Miralax) 17 gm DAILYPRN PRN ORAL Constipation 01/09/18 06:30 02/08/18 06:29 01/12/18 16:37 Promethazine HCl/ Codeine (Phenergan with Codeine) 5 ml Q4H PRN ORAL For Cough 01/09/18 06:30 02/08/18 06:29 Sodium Chloride 500 ml @ 30 mls/hr ONCE ONCE IV 01/13/18 11:00 01/14/18 03:39 01/13/18 11:21 Vancomycin HCl (Vanco rx to dose) 1 ea DAILY PRN MISC PRN RX TO DOSE PROTOCOL 01/09/18 15:45 02/08/18 15:44 Vancomycin HCl 1 gm/Dextrose 275 ml @ 183.3 mls/ hr Q12H IVPB 01/12/18 08:00 01/17/18 07:59 01/13/18 08:35 BRENDON MEEHAN Jan 13, 2018 17:40
[2018-01-13 20:00] VITALS: BP 139/78
--- NOTE | 2018-01-13 20:17 | General Progress Note ---
Assessment/Plan Problem List: (1) Diabetes ICD Codes: E11.9 - Type 2 diabetes mellitus without complications SNOMED: 32880873 Qualifiers: Qualified Codes: E11.8 - Type 2 diabetes mellitus with unspecified complications (2) Hyponatremia ICD Codes: E87.1 - Hypo-osmolality and hyponatremia SNOMED: 53216630 (3) Pneumonia ICD Codes: J18.9 - Pneumonia, unspecified organism SNOMED: 030446776 Qualifiers: Qualified Codes: J18.1 - Lobar pneumonia, unspecified organism (4) Fever ICD Codes: R50.9 - Fever, unspecified SNOMED: 720822235 Status: stable Assessment/Plan low sodium improved pna improving dc in am Subjective ROS Limited/Unobtainable: Yes Allergies: Coded Allergies: No Known Allergies (Unverified , 01/08/18) Objective Last 24 Hour Vital Signs Date Time Temp Pulse Resp B/P (MAP) Pulse Ox O2 Delivery O2 Flow Rate FiO2 01/13/18 16:00 98.8 81 18 141/81 93 98.8 01/13/18 11:38 99.5 69 18 126/72 95 Room Air 99.5 01/13/18 09:39 98.8 01/13/18 08:40 100.2 01/13/18 08:30 83 16 Room Air 01/13/18 07:59 102.2 80 18 139/82 95 Room Air 102.2 01/13/18 04:00 98.4 79 20 136/79 96 Room Air 98.4 01/13/18 01:24 99.0 01/13/18 00:00 99.0 89 18 144/82 93 Room Air 99.0 Intake and Output 01/12/18 01/13/18 19:00 07:00 Intake Total 1185.0 ml 180 ml Output Total 400 ml Balance 785.0 ml 180 ml Intake Oral 600 ml IV Total 585.0 ml 180 ml Output Urine Total 400 ml # Voids 2 2 Laboratory Tests 01/13/18 05:00: White Blood Count 7.5, Red Blood Count 4.44L, Hemoglobin 13.7L, Hematocrit 37.5L , Mean Corpuscular Volume 84, Mean Corpuscular Hemoglobin 30.9, Mean Corpuscular Hemoglobin Concent 36.6H, Red Cell Distribution Width 11.4L, Platelet Count 207, Mean Platelet Volume 5.2L, Neutrophils (%) (Auto) 75.8H, Lymphocytes (%) (Auto) 13.7L, Monocytes (%) (Auto) 9.2, Eosinophils (%) (Auto) 0.7, Basophils (%) (Auto) 0.6, Sodium Level 131L, Potassium Level 3.8, Chloride Level 96L, Carbon Dioxide Level 31, Anion Gap 4L, Blood Urea Nitrogen 13, Creatinine 0.9, Estimat Glomerular Filtration Rate > 60, Glucose Level 177H, Uric Acid 1.7L, Calcium Level 8.3L, Phosphorus Level 2.7, Magnesium Level 2.3, Total Bilirubin 0.6, Aspartate Amino Transf (AST/SGOT) 24, Alanine Aminotransferase (ALT/SGPT) 48, Alkaline Phosphatase 82, Total Protein 7.3, Albumin 2.3L, Globulin 5.0, Albumin/Globulin Ratio 0.5L 01/13/18 19:10: Vancomycin Level Trough 6.4 Height (Feet): 4 Height (Inches): 11.00 Weight (Pounds): 139 Cardiovascular: normal rate Respiratory/Chest: chest wall non-tender Echo Baez MD Jan 13, 2018 20:17
[2018-01-14] VITALS: BP 103/69
[2018-01-14] MEDS: Vancomycin 1250mg/D5W 250ml 250 ML IVPB SCH ×2 (03:00→17:10)
[2018-01-14 04:00] VITALS: BP 121/72
[2018-01-14] MEDS: NovoLOG Insulin Flexpen SUBQ SCH ×4 (05:43→21:09)
[2018-01-14 08:00] VITALS: BP 131/79
[2018-01-14] MEDS: Cefepime HCl 2 GM in NS 110 ML IV SCH ×2 (09:17→21:00)
[2018-01-14] MEDS: Heparin 5000 units/ml inj SUBQ SCH ×2 (09:19→21:10)
[2018-01-14 09:59] LABS: BASOPHILS % (AUTO) 0.5 % (0.0-2.0); EOSINOPHILS % (AUTO) 0.9 % (0.0-3.0); HEMATOCRIT 39.5 % (42.0-52.0); HEMOGLOBIN 13.7 G/DL (14.2-18.0); LYMPHOCYTES % (AUTO) 11.9 % (20.0-45.0); MEAN CORPUSCULAR VOLUME 85 FL (80-99); NEUTROPHILS % (AUTO) 78.7 % (45.0-75.0); PLATELET COUNT 203 K/UL (150-450); RED BLOOD COUNT 4.67 M/UL (4.70-6.10); RED CELL DISTRIBUTION WIDTH 11.2 % (11.6-14.8); WHITE BLOOD COUNT 6.8 K/UL (4.8-10.8)
[2018-01-14 10:10] LABS: ALANINE AMINOTRANSFERASE 50 U/L (12-78); ALBUMIN 2.1 G/DL (3.4-5.0); ALBUMIN/GLOBULIN RATIO 0.4 (1.0-2.7); ALKALINE PHOSPHATASE 77 U/L (46-116); ANION GAP 6 mmol/L (5-15); ASPARTATE AMINO TRANSFERASE 22 U/L (15-37); BILIRUBIN,TOTAL 0.5 MG/DL (0.2-1.0); BLOOD UREA NITROGEN 13 mg/dL (7-18); CALCIUM 8.2 MG/DL (8.5-10.1); CARBON DIOXIDE 28 MMOL/L (21-32); CHLORIDE 98 MMOL/L (98-107); CREATININE 0.8 MG/DL (0.55-1.30); POTASSIUM 3.6 MMOL/L (3.5-5.1); SODIUM 132 MMOL/L (136-145)
--- NOTE | 2018-01-14 10:49 | Nephrology Progress Note ---
Assessment/Plan Problem List: (1) Hyponatremia (2) Pneumonia (3) Diabetes (4) SIADH (syndrome of inappropriate ADH production) Assessment - Low Na likely SIADH ( High Rosanna , low Uric... today 132 - Pneumonia - Diabetes Plan Plan: PO Fluid restriction Monitor lytes per consultants Subjective ROS Limited/Unobtainable: No Objective Objective Last 24 Hour Vital Signs Date Time Temp Pulse Resp B/P (MAP) Pulse Ox O2 Delivery O2 Flow Rate FiO2 01/14/18 08:31 93 18 Room Air 21 01/14/18 08:00 99.5 80 20 131/79 95 99.5 01/14/18 04:00 97.7 66 18 121/72 97 Nasal Cannula 97.7 01/14/18 00:00 97.7 66 19 103/69 98 Nasal Cannula 97.7 01/13/18 22:52 98.1 01/13/18 21:53 101.8 01/13/18 20:00 101.8 90 20 139/78 90 Room Air 101.8 01/13/18 19:00 94 18 Room Air 21 01/13/18 16:00 98.8 81 18 141/81 93 98.8 01/13/18 11:38 99.5 69 18 126/72 95 Room Air 99.5 Intake and Output 01/13/18 01/14/18 19:00 07:00 Intake Total 1105 ml 60 ml Balance 1105 ml 60 ml Intake Oral 480 ml IV Total 625 ml 60 ml # Voids 1 2 Laboratory Tests 01/13/18 19:10: Vancomycin Level Trough 6.4 01/14/18 06:50: White Blood Count 6.8, Red Blood Count 4.67L, Hemoglobin 13.7L, Hematocrit 39.5L , Mean Corpuscular Volume 85, Mean Corpuscular Hemoglobin 29.4, Mean Corpuscular Hemoglobin Concent 34.7, Red Cell Distribution Width 11.2L, Platelet Count 203, Mean Platelet Volume 5.3L, Neutrophils (%) (Auto) 78.7H, Lymphocytes (%) (Auto) 11.9L, Monocytes (%) (Auto) 8.0, Eosinophils (%) (Auto) 0.9, Basophils (%) (Auto) 0.5, Sodium Level 132L, Potassium Level 3.6, Chloride Level 98, Carbon Dioxide Level 28, Anion Gap 6, Blood Urea Nitrogen 13, Creatinine 0.8, Estimat Glomerular Filtration Rate > 60, Glucose Level 173H, Calcium Level 8.2L, Total Bilirubin 0.5, Aspartate Amino Transf (AST/SGOT) 22, Alanine Aminotransferase (ALT/SGPT) 50, Alkaline Phosphatase 77, Total Protein 7.0, Albumin 2.1L, Globulin 4.9, Albumin/Globulin Ratio 0.4L, HIV (1&2) Antibody Rapid Negative Height (Feet): 4 Height (Inches): 11.00 Weight (Pounds): 139 General Appearance: no apparent distress Objective no change SERA SHEETS Jan 14, 2018 10:49
[2018-01-14 12:00] VITALS: BP 147/86
--- NOTE | 2018-01-14 12:46 | Infectious Diseases Prog Note ---
Assessment/Plan Assessment/Plan A; Pneumonia R/O TB, T spot negative Persistent fever SIADH DM type 2 P; Continue Cefepime & Vancomycin will f/u cultures, serologies Subjective ROS Limited/Unobtainable: No Constitutional: Reports: other - fever last night Respiratory: Reports: no symptoms Gastrointestinal/Abdominal: Reports: no symptoms Genitourinary: Reports: no symptoms Neurologic: Reports: confusion, other - last night Allergies: Coded Allergies: No Known Allergies (Unverified , 01/08/18) Objective Vital Signs Last 24 Hour Vital Signs Date Time Temp Pulse Resp B/P (MAP) Pulse Ox O2 Delivery O2 Flow Rate FiO2 01/14/18 12:00 99.5 78 21 147/86 93 99.5 01/14/18 08:31 93 18 Room Air 21 01/14/18 08:00 99.5 80 20 131/79 95 99.5 01/14/18 04:00 97.7 66 18 121/72 97 Nasal Cannula 97.7 01/14/18 00:00 97.7 66 19 103/69 98 Nasal Cannula 97.7 01/13/18 22:52 98.1 01/13/18 21:53 101.8 01/13/18 20:00 101.8 90 20 139/78 90 Room Air 101.8 01/13/18 19:00 94 18 Room Air 21 01/13/18 16:00 98.8 81 18 141/81 93 98.8 Height (Feet): 4 Height (Inches): 11.00 Weight (Pounds): 139 General Appearance: no acute distress HEENT: mucous membranes moist Respiratory/Chest: lungs clear Cardiovascular: normal peripheral pulses Abdomen: soft, non tender Extremities: no edema Neurologic/Psychiatric: alert, responsive Microbiology Date/Time Source Procedure Growth Status 01/12/18 19:10 Blood Blood Culture - Preliminary NO GROWTH AFTER 24 HOURS Resulted 01/12/18 18:45 Blood Blood Culture - Preliminary NO GROWTH AFTER 24 HOURS Resulted 01/13/18 01:45 Urine,Clean Catch Urine Culture - Preliminary NO GROWTH Resulted Laboratory Tests Test 01/13/18 19:10 01/14/18 06:50 Vancomycin Level Trough 6.4 ug/mL (5.0-12.0) White Blood Count 6.8 K/UL (4.8-10.8) Red Blood Count 4.67 M/UL (4.70-6.10) L Hemoglobin 13.7 G/DL (14.2-18.0) L Hematocrit 39.5 % (42.0-52.0) L Mean Corpuscular Volume 85 FL (80-99) Mean Corpuscular Hemoglobin 29.4 PG (27.0-31.0) Mean Corpuscular Hemoglobin Concent 34.7 G/DL (32.0-36.0) Red Cell Distribution Width 11.2 % (11.6-14.8) L Platelet Count 203 K/UL (150-450) Mean Platelet Volume 5.3 FL (6.5-10.1) L Neutrophils (%) (Auto) 78.7 % (45.0-75.0) H Lymphocytes (%) (Auto) 11.9 % (20.0-45.0) L Monocytes (%) (Auto) 8.0 % (1.0-10.0) Eosinophils (%) (Auto) 0.9 % (0.0-3.0) Basophils (%) (Auto) 0.5 % (0.0-2.0) Sodium Level 132 MMOL/L (136-145) L Potassium Level 3.6 MMOL/L (3.5-5.1) Chloride Level 98 MMOL/L (98-107) Carbon Dioxide Level 28 MMOL/L (21-32) Anion Gap 6 mmol/L (5-15) Blood Urea Nitrogen 13 mg/dL (7-18) Creatinine 0.8 MG/DL (0.55-1.30) Estimat Glomerular Filtration Rate > 60 mL/min (>60) Glucose Level 173 MG/DL (74-106) H Calcium Level 8.2 MG/DL (8.5-10.1) L Total Bilirubin 0.5 MG/DL (0.2-1.0) Aspartate Amino Transf (AST/SGOT) 22 U/L (15-37) Alanine Aminotransferase (ALT/SGPT) 50 U/L (12-78) Alkaline Phosphatase 77 U/L (46-116) Total Protein 7.0 G/DL (6.4-8.2) Albumin 2.1 G/DL (3.4-5.0) L Globulin 4.9 g/dL Albumin/Globulin Ratio 0.4 (1.0-2.7) L HIV (1&2) Antibody Rapid Negative (NEGATIVE) Current Medications Medications (Trade) Dose Ordered Sig/Lida Route PRN Reason Start Time Stop Time Status Last Admin Dose Admin Acetaminophen (Tylenol) 650 mg Q4H PRN ORAL Mild Pain/Temp > 100.5 01/10/18 12:15 02/09/18 12:14 01/13/18 21:53 Cefepime HCl 2 gm/ Sodium Chloride 110 ml @ 220 mls/hr EVERY 12 HOURS IV 01/09/18 09:00 01/16/18 23:59 01/14/18 09:17 Dextrose (Dextrose 50%) STAT PRN IV Hypoglycemia 01/09/18 06:30 02/08/18 06:29 Heparin Sodium (Porcine) (Heparin 5000 units/ml) 5,000 units EVERY 12 HOURS SUBQ 01/09/18 09:00 02/08/18 08:59 01/14/18 09:19 Insulin Aspart (NovoLOG) BEFORE MEALS AND HS SUBQ 01/09/18 06:30 02/08/18 06:29 01/14/18 12:38 Lansoprazole (Prevacid) 30 mg DAILY ORAL 01/09/18 16:30 02/08/18 16:29 01/14/18 09:17 Ondansetron HCl (Zofran) 4 mg Q6H PRN IVP Nausea & Vomiting 01/09/18 06:30 02/08/18 06:29 Polyethylene Glycol (Miralax) 17 gm DAILYPRN PRN ORAL Constipation 01/09/18 06:30 02/08/18 06:29 01/12/18 16:37 Promethazine HCl/ Codeine (Phenergan with Codeine) 5 ml Q4H PRN ORAL For Cough 01/09/18 06:30 02/08/18 06:29 Vancomycin HCl (Vanco rx to dose) 1 ea DAILY PRN MISC PRN RX TO DOSE PROTOCOL 01/09/18 15:45 02/08/18 15:44 Vancomycin HCl/ Dextrose 250 ml @ 166.667 mls/hr Q12HR@0400,1600 IVPB 01/14/18 04:00 01/19/18 03:59 01/14/18 03:00 STACIA HANDY Jan 14, 2018 12:46
--- NOTE | 2018-01-14 12:50 | Diagnostic Imaging Report ---
Indication: Dyspnea Comparison: 01/08/2014 A single view chest radiograph was obtained. Findings: There is a right perihilar and upper lobe infiltrate. Heart size is borderline. Bones are unremarkable. IMPRESSION: Right perihilar pneumonia
[2018-01-14 16:00] VITALS: BP 143/93
--- NOTE | 2018-01-14 17:03 | Pulmonology Progress Note ---
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 continue current abx cxr reviewed, improving Subjective ROS Limited/Unobtainable: No HEENT: Repors: no symptoms Respiratory: Reports: no symptoms Allergies: Coded Allergies: No Known Allergies (Unverified , 01/08/18) Objective Last 24 Hour Vital Signs Date Time Temp Pulse Resp B/P (MAP) Pulse Ox O2 Delivery O2 Flow Rate FiO2 01/14/18 16:00 99.0 77 19 143/93 94 99.0 01/14/18 12:00 99.5 78 21 147/86 93 99.5 01/14/18 08:31 93 18 Room Air 21 01/14/18 08:00 99.5 80 20 131/79 95 99.5 01/14/18 04:00 97.7 66 18 121/72 97 Nasal Cannula 97.7 01/14/18 00:00 97.7 66 19 103/69 98 Nasal Cannula 97.7 01/13/18 22:52 98.1 01/13/18 21:53 101.8 01/13/18 20:00 101.8 90 20 139/78 90 Room Air 101.8 01/13/18 19:00 94 18 Room Air 21 Intake and Output 01/13/18 01/14/18 19:00 07:00 Intake Total 1105 ml 60 ml Balance 1105 ml 60 ml Intake Oral 480 ml IV Total 625 ml 60 ml # Voids 1 2 Objective General Appearance: no apparent distress Head: normocephalic, atraumatic Eyes: bilateral eye PERRL, bilateral eye EOMI ENT: normal pharynx, no angioedema Neck: supple, thyroid normal Respiratory: lungs clear, normal breath sounds Cardiovascular #1: regular rate, rhythm Gastrointestinal: non tender, soft Microbiology Date/Time Source Procedure Growth Status 01/12/18 19:10 Blood Blood Culture - Preliminary NO GROWTH AFTER 24 HOURS Resulted 01/12/18 18:45 Blood Blood Culture - Preliminary NO GROWTH AFTER 24 HOURS Resulted 01/12/18 13:20 Sputum AFB Specimen Processing Tissue - Final Resulted 01/12/18 13:20 Sputum Acid Fast Bacilli Smear - Final Resulted 01/12/18 13:20 Sputum Acid Fast Bacilli Culture Pending Resulted 01/13/18 01:45 Urine,Clean Catch Urine Culture - Preliminary NO GROWTH Resulted Laboratory Tests 01/13/18 19:10: Vancomycin Level Trough 6.4 01/14/18 06:50: White Blood Count 6.8, Red Blood Count 4.67L, Hemoglobin 13.7L, Hematocrit 39.5L , Mean Corpuscular Volume 85, Mean Corpuscular Hemoglobin 29.4, Mean Corpuscular Hemoglobin Concent 34.7, Red Cell Distribution Width 11.2L, Platelet Count 203, Mean Platelet Volume 5.3L, Neutrophils (%) (Auto) 78.7H, Lymphocytes (%) (Auto) 11.9L, Monocytes (%) (Auto) 8.0, Eosinophils (%) (Auto) 0.9, Basophils (%) (Auto) 0.5, Sodium Level 132L, Potassium Level 3.6, Chloride Level 98, Carbon Dioxide Level 28, Anion Gap 6, Blood Urea Nitrogen 13, Creatinine 0.8, Estimat Glomerular Filtration Rate > 60, Glucose Level 173H, Calcium Level 8.2L, Total Bilirubin 0.5, Aspartate Amino Transf (AST/SGOT) 22, Alanine Aminotransferase (ALT/SGPT) 50, Alkaline Phosphatase 77, Total Protein 7.0, Albumin 2.1L, Globulin 4.9, Albumin/Globulin Ratio 0.4L, HIV (1&2) Antibody Rapid Negative Current Medications Medications (Trade) Dose Ordered Sig/Lida Route PRN Reason Start Time Stop Time Status Last Admin Dose Admin Acetaminophen (Tylenol) 650 mg Q4H PRN ORAL Mild Pain/Temp > 100.5 01/10/18 12:15 02/09/18 12:14 01/13/18 21:53 Cefepime HCl 2 gm/ Sodium Chloride 110 ml @ 220 mls/hr EVERY 12 HOURS IV 01/09/18 09:00 01/16/18 23:59 01/14/18 09:17 Dextrose (Dextrose 50%) STAT PRN IV Hypoglycemia 01/09/18 06:30 02/08/18 06:29 Heparin Sodium (Porcine) (Heparin 5000 units/ml) 5,000 units EVERY 12 HOURS SUBQ 01/09/18 09:00 02/08/18 08:59 01/14/18 09:19 Insulin Aspart (NovoLOG) BEFORE MEALS AND HS SUBQ 01/09/18 06:30 02/08/18 06:29 01/14/18 12:38 Lansoprazole (Prevacid) 30 mg DAILY ORAL 01/09/18 16:30 02/08/18 16:29 01/14/18 09:17 Ondansetron HCl (Zofran) 4 mg Q6H PRN IVP Nausea & Vomiting 01/09/18 06:30 02/08/18 06:29 Polyethylene Glycol (Miralax) 17 gm DAILYPRN PRN ORAL Constipation 01/09/18 06:30 02/08/18 06:29 01/12/18 16:37 Promethazine HCl/ Codeine (Phenergan with Codeine) 5 ml Q4H PRN ORAL For Cough 01/09/18 06:30 02/08/18 06:29 Vancomycin HCl (Vanco rx to dose) 1 ea DAILY PRN MISC PRN RX TO DOSE PROTOCOL 01/09/18 15:45 02/08/18 15:44 Vancomycin HCl/ Dextrose 250 ml @ 166.667 mls/hr Q12HR@0400,1600 IVPB 01/14/18 04:00 01/19/18 03:59 01/14/18 03:00 BRENDON MEEHAN Jan 14, 2018 17:03
[2018-01-14 20:01] VITALS: BP 137/68
--- NOTE | 2018-01-14 20:07 | General Progress Note ---
Assessment/Plan Problem List: (1) Diabetes ICD Codes: E11.9 - Type 2 diabetes mellitus without complications SNOMED: 15207496 Qualifiers: Qualified Codes: E11.8 - Type 2 diabetes mellitus with unspecified complications (2) Hyponatremia ICD Codes: E87.1 - Hypo-osmolality and hyponatremia SNOMED: 78210625 (3) Pneumonia ICD Codes: J18.9 - Pneumonia, unspecified organism SNOMED: 364210757 Qualifiers: Qualified Codes: J18.1 - Lobar pneumonia, unspecified organism (4) Fever ICD Codes: R50.9 - Fever, unspecified SNOMED: 815545544 Status: progressing Assessment/Plan low sodium improved pna improving ams lab improved abx per id Subjective ROS Limited/Unobtainable: Yes Allergies: Coded Allergies: No Known Allergies (Unverified , 01/08/18) Objective Last 24 Hour Vital Signs Date Time Temp Pulse Resp B/P (MAP) Pulse Ox O2 Delivery O2 Flow Rate FiO2 01/14/18 20:01 100.4 78 21 137/68 91 Room Air 100.4 01/14/18 16:00 99.0 77 19 143/93 94 99.0 01/14/18 12:00 99.5 78 21 147/86 93 99.5 01/14/18 08:31 93 18 Room Air 21 01/14/18 08:00 99.5 80 20 131/79 95 99.5 01/14/18 04:00 97.7 66 18 121/72 97 Nasal Cannula 97.7 01/14/18 00:00 97.7 66 19 103/69 98 Nasal Cannula 97.7 01/13/18 22:52 98.1 01/13/18 21:53 101.8 Intake and Output 01/13/18 01/14/18 19:00 07:00 Intake Total 1105 ml 60 ml Balance 1105 ml 60 ml Intake Oral 480 ml IV Total 625 ml 60 ml # Voids 1 2 Laboratory Tests 01/14/18 06:50: White Blood Count 6.8, Red Blood Count 4.67L, Hemoglobin 13.7L, Hematocrit 39.5L , Mean Corpuscular Volume 85, Mean Corpuscular Hemoglobin 29.4, Mean Corpuscular Hemoglobin Concent 34.7, Red Cell Distribution Width 11.2L, Platelet Count 203, Mean Platelet Volume 5.3L, Neutrophils (%) (Auto) 78.7H, Lymphocytes (%) (Auto) 11.9L, Monocytes (%) (Auto) 8.0, Eosinophils (%) (Auto) 0.9, Basophils (%) (Auto) 0.5, Sodium Level 132L, Potassium Level 3.6, Chloride Level 98, Carbon Dioxide Level 28, Anion Gap 6, Blood Urea Nitrogen 13, Creatinine 0.8, Estimat Glomerular Filtration Rate > 60, Glucose Level 173H, Calcium Level 8.2L, Total Bilirubin 0.5, Aspartate Amino Transf (AST/SGOT) 22, Alanine Aminotransferase (ALT/SGPT) 50, Alkaline Phosphatase 77, Total Protein 7.0, Albumin 2.1L, Globulin 4.9, Albumin/Globulin Ratio 0.4L, HIV (1&2) Antibody Rapid Negative Height (Feet): 4 Height (Inches): 11.00 Weight (Pounds): 139 Neck: supple Cardiovascular: normal rate Respiratory/Chest: lungs clear Abdomen: soft Echo Baez MD Jan 14, 2018 20:07
[2018-01-14 22:13] LABS: APPEARANCE,URINE CLEAR; BILIRUBIN, URINE NEGATIVE (NEGATIVE); GLUCOSE, URINE (UA) 3+ (NEGATIVE); KETONES,URINE NEGATIVE (NEGATIVE); LEUKOCYTE ESTERASE ,URINE NEGATIVE (NEGATIVE); NITRITE,URINE NEGATIVE (NEGATIVE); PH,URINE 6.5 (4.5-8.0); PROTEIN,URINE 1+ (NEGATIVE); UROBILINOGEN,URINE 8 MG/DL (0.0-1.0)
[2018-01-14 22:18] LABS: COLOR,URINE YELLOW
[2018-01-15] VITALS: BP 118/58
[2018-01-15 04:00] VITALS: BP 116/69
[2018-01-15] MEDS: Vancomycin 1250mg/D5W 250ml 250 ML IVPB SCH ×2 (04:22→16:39)
--- NOTE | 2018-01-15 05:15 | Consultation ---
DATE OF CONSULTATION: 01/14/2018 NOTE: POOR AUDIO HEMATOLOGY/ONCOLOGY CONSULTATION CONSULTING PHYSICIAN: Vic Anderson M.D. REQUESTING PHYSICIAN: Echo Baez M.D. REASON FOR CONSULTATION: Evaluation of anemia. IDENTIFYING DATA: Dear Dr. Baez, The patient is a pleasant 62-year-old male with past medical history significant for decreased appetite, diabetes mellitus type 2, antibiotics, has been seen by [facility], complains of intermittent diarrhea several days ago. Currently, the patient is on treatment with vancomycin and cefepime. Noted to be anemic. Hematology Service was consulted for further evaluation and underlying treatment. PAST MEDICAL HISTORY: Diabetes mellitus. PAST SURGICAL HISTORY: None noted. REVIEW OF SYSTEMS: CONSTITUTIONAL: Fevers and chills noticed. SKIN: No rashes, bumps, or itching. HEENT: No headache, hearing or vision changes. BREASTS: No lumps, pain, or discharge. PULMONARY: No cough, sputum, or shortness of breath. GASTROINTESTINAL: No nausea, vomiting, or diarrhea. GENITOURINARY: No dysuria, frequency, or urgency. MUSCULOSKELETAL: No joint swelling, muscle pain, or trauma. PHYSICAL EXAMINATION: VITAL SIGNS: Reviewed. GENERAL: No distress. PULMONARY: Decreased breath sounds. CARDIOVASCULAR: Regular rate. No S3 or S4. ABDOMEN: Soft, nontender, and nondistended. EXTREMITIES: No cyanosis, swelling, or edema. LABORATORY AND DIAGNOSTIC DATA: WBC 6.8, hemoglobin 13, hematocrit 40, platelets 208,000. ASSESSMENT AND RECOMMENDATION: 1. Anemia due to underlying chronic disease. Continue to closely monitor. Consider workup if hemoglobin downtrends. 2. Fevers and chills, probably due to underlying pneumonia. 3. secondary to pneumonia versus . 4. Hyponatremia potentially secondary to syndrome of inappropriate antidiuretic hormone. 5. Diabetes mellitus. Continue blood sugar goal between 80 and 120. 6. Hypoalbuminemia secondary to protein-calorie malnutrition. I appreciate the consultation. Vic Anderson M.D. DR: ADDIE JOB#: [id number] CC:
[2018-01-15] MEDS: NovoLOG Insulin Flexpen SUBQ SCH ×4 (06:43→21:38)
[2018-01-15 08:20] VITALS: BP 130/77
[2018-01-15] MEDS: Cefepime HCl 2 GM in NS 110 ML IV SCH ×2 (09:58→21:36)
[2018-01-15] MEDS: Heparin 5000 units/ml inj SUBQ SCH ×2 (10:06→21:38)
[2018-01-15 12:00] VITALS: BP 144/77
--- NOTE | 2018-01-15 12:32 | Nephrology Progress Note ---
Assessment/Plan Problem List: (1) Hyponatremia (2) Pneumonia (3) Diabetes (4) SIADH (syndrome of inappropriate ADH production) Assessment - Low Na likely SIADH ( High Rosanna , low Uric... today 132 - Pneumonia - Diabetes Plan Plan: no labs today PO Fluid restriction Monitor lytes per consultants Subjective ROS Limited/Unobtainable: No Constitutional: Reports: malaise Objective Objective Last 24 Hour Vital Signs Date Time Temp Pulse Resp B/P (MAP) Pulse Ox O2 Delivery O2 Flow Rate FiO2 01/15/18 08:20 99.0 79 20 130/77 95 99.0 01/15/18 04:00 97.9 61 20 116/69 97 Room Air 97.9 01/15/18 00:00 97.7 60 18 118/58 97 Room Air 97.7 01/14/18 23:55 98.0 01/14/18 22:56 102.2 01/14/18 20:01 100.4 78 21 137/68 91 Room Air 100.4 01/14/18 19:14 91 18 Room Air 21 01/14/18 16:00 99.0 77 19 143/93 94 99.0 Intake and Output 01/14/18 01/15/18 19:00 07:00 Intake Total 840 ml 480.000 ml Balance 840 ml 480.000 ml Intake Oral 480 ml 120 ml IV Total 360 ml 360.000 ml # Voids 2 3 Laboratory Tests 01/14/18 21:40: Urine Color Yellow, Urine Appearance Clear, Urine pH 6.5, Urine Specific [place] 1.015, Urine Protein 1+H, Urine Glucose (UA) 3+H, Urine Ketones Negative , Urine Occult Blood 1+H, Urine Nitrite Negative, Urine Bilirubin Negative, Urine Urobilinogen 8H, Urine Leukocyte Esterase Negative, Urine RBC 0-2H, Urine WBC 0-2, Urine Squamous Epithelial Cells None, Urine Bacteria Few 01/15/18 06:15: Coccidioides Antibody (Comp Fix) [Pending] Height (Feet): 4 Height (Inches): 11.00 Weight (Pounds): 139 General Appearance: no apparent distress Respiratory/Chest: lungs clear Abdomen: soft Objective no change SERA SHEETS Jan 15, 2018 12:32
--- NOTE | 2018-01-15 14:03 | Infectious Diseases Prog Note ---
Assessment/Plan Assessment/Plan A; Pneumonia R/O TB, T spot negative Persistent fever SIADH DM type 2 P; Continue Cefepime & Vancomycin will f/u cultures, serologies CT scan of abdomen & pelvis with contrast Subjective ROS Limited/Unobtainable: Yes Constitutional: Reports: fever, other - Ofjx=[id number] Respiratory: Reports: no symptoms Allergies: Coded Allergies: No Known Allergies (Unverified , 01/08/18) Objective Vital Signs Last 24 Hour Vital Signs Date Time Temp Pulse Resp B/P (MAP) Pulse Ox O2 Delivery O2 Flow Rate FiO2 01/15/18 12:45 101.7 01/15/18 12:00 101.7 81 20 144/77 94 101.7 01/15/18 08:20 99.0 79 20 130/77 95 99.0 01/15/18 04:00 97.9 61 20 116/69 97 Room Air 97.9 01/15/18 00:00 97.7 60 18 118/58 97 Room Air 97.7 01/14/18 23:55 98.0 01/14/18 22:56 102.2 01/14/18 20:01 100.4 78 21 137/68 91 Room Air 100.4 01/14/18 19:14 91 18 Room Air 21 01/14/18 16:00 99.0 77 19 143/93 94 99.0 Height (Feet): 4 Height (Inches): 11.00 Weight (Pounds): 139 HEENT: mucous membranes moist Respiratory/Chest: lungs clear Cardiovascular: normal rate Abdomen: soft, non tender Extremities: no edema Neurologic/Psychiatric: other - drowsy Microbiology Date/Time Source Procedure Growth Status 01/12/18 19:10 Blood Blood Culture - Preliminary NO GROWTH AFTER 48 HOURS Resulted 01/12/18 18:45 Blood Blood Culture - Preliminary NO GROWTH AFTER 48 HOURS Resulted 01/13/18 01:45 Urine,Clean Catch Urine Culture - Preliminary NO GROWTH AFTER 24 HOURS Resulted Laboratory Tests Test 01/14/18 21:40 01/15/18 06:15 Urine Color Yellow Urine Appearance Clear Urine pH 6.5 (4.5-8.0) Urine Specific [place] 1.015 (1.005-1.035) Urine Protein 1+ (NEGATIVE) H Urine Glucose (UA) 3+ (NEGATIVE) H Urine Ketones Negative (NEGATIVE) Urine Occult Blood 1+ (NEGATIVE) H Urine Nitrite Negative (NEGATIVE) Urine Bilirubin Negative (NEGATIVE) Urine Urobilinogen 8 MG/DL (0.0-1.0) H Urine Leukocyte Esterase Negative (NEGATIVE) Urine RBC 0-2 /HPF (0 - 0) H Urine WBC 0-2 /HPF (0 - 0) Urine Squamous Epithelial Cells None /LPF (NONE/OCC) Urine Bacteria Few /HPF (NONE) Coccidioides Antibody (Comp Fix) Pending Current Medications Medications (Trade) Dose Ordered Sig/Lida Route PRN Reason Start Time Stop Time Status Last Admin Dose Admin Acetaminophen (Tylenol) 650 mg Q4H PRN ORAL Mild Pain/Temp > 100.5 01/10/18 12:15 02/09/18 12:14 01/15/18 12:45 Cefepime HCl 2 gm/ Sodium Chloride 110 ml @ 220 mls/hr EVERY 12 HOURS IV 01/09/18 09:00 01/16/18 23:59 01/15/18 09:58 Dextrose (Dextrose 50%) STAT PRN IV Hypoglycemia 01/09/18 06:30 02/08/18 06:29 Heparin Sodium (Porcine) (Heparin 5000 units/ml) 5,000 units EVERY 12 HOURS SUBQ 01/09/18 09:00 02/08/18 08:59 01/15/18 10:06 Insulin Aspart (NovoLOG) BEFORE MEALS AND HS SUBQ 01/09/18 06:30 02/08/18 06:29 01/15/18 12:50 Lansoprazole (Prevacid) 30 mg DAILY ORAL 01/09/18 16:30 02/08/18 16:29 01/15/18 09:58 Ondansetron HCl (Zofran) 4 mg Q6H PRN IVP Nausea & Vomiting 01/09/18 06:30 02/08/18 06:29 Polyethylene Glycol (Miralax) 17 gm DAILYPRN PRN ORAL Constipation 01/09/18 06:30 02/08/18 06:29 01/12/18 16:37 Promethazine HCl/ Codeine (Phenergan with Codeine) 5 ml Q4H PRN ORAL For Cough 01/09/18 06:30 02/08/18 06:29 Vancomycin HCl (Vanco rx to dose) 1 ea DAILY PRN MISC PRN RX TO DOSE PROTOCOL 01/09/18 15:45 02/08/18 15:44 Vancomycin HCl/ Dextrose 250 ml @ 166.667 mls/hr Q12HR@0400,1600 IVPB 01/14/18 04:00 01/19/18 03:59 01/15/18 04:22 STACIA HANDY Jan 15, 2018 14:03
[2018-01-15 16:09] VITALS: BP 125/69
--- NOTE | 2018-01-15 16:53 | Pulmonology Progress Note ---
Assessment/Plan Problems: (1) Pneumonia (2) Fever (3) Hyponatremia (4) Diabetes Assessment/Plan still episodes of fever Tspot negative IV abx check sputum ct abdomen and pelvis pending keep in isolation continue current abx Subjective ROS Limited/Unobtainable: No Constitutional: Reports: no symptoms HEENT: Repors: no symptoms Respiratory: Reports: no symptoms Allergies: Coded Allergies: No Known Allergies (Unverified , 01/08/18) Objective Last 24 Hour Vital Signs Date Time Temp Pulse Resp B/P (MAP) Pulse Ox O2 Delivery O2 Flow Rate FiO2 01/15/18 16:09 99.2 60 20 125/69 95 99.2 01/15/18 13:44 98.6 01/15/18 12:45 101.7 01/15/18 12:00 101.7 81 20 144/77 94 101.7 01/15/18 08:20 99.0 79 20 130/77 95 99.0 01/15/18 04:00 97.9 61 20 116/69 97 Room Air 97.9 01/15/18 00:00 97.7 60 18 118/58 97 Room Air 97.7 01/14/18 22:56 102.2 01/14/18 20:01 100.4 78 21 137/68 91 Room Air 100.4 01/14/18 19:14 91 18 Room Air 21 Intake and Output 01/14/18 01/15/18 19:00 07:00 Intake Total 840 ml 480.000 ml Balance 840 ml 480.000 ml Intake Oral 480 ml 120 ml IV Total 360 ml 360.000 ml # Voids 2 3 Objective General Appearance: no apparent distress Head: normocephalic, atraumatic Eyes: bilateral eye PERRL, bilateral eye EOMI ENT: normal pharynx, no angioedema Neck: supple, thyroid normal Respiratory: lungs clear, normal breath sounds Cardiovascular #1: regular rate, rhythm Gastrointestinal: non tender, soft Microbiology Date/Time Source Procedure Growth Status 01/12/18 19:10 Blood Blood Culture - Preliminary NO GROWTH AFTER 48 HOURS Resulted 01/12/18 18:45 Blood Blood Culture - Preliminary NO GROWTH AFTER 48 HOURS Resulted 01/13/18 17:00 Sputum AFB Specimen Processing Tissue - Final Resulted 01/13/18 17:00 Sputum Acid Fast Bacilli Smear - Final Resulted 01/13/18 17:00 Sputum Acid Fast Bacilli Culture Pending Resulted 01/13/18 01:45 Urine,Clean Catch Urine Culture - Preliminary NO GROWTH AFTER 24 HOURS Resulted Laboratory Tests 01/14/18 21:40: Urine Color Yellow, Urine Appearance Clear, Urine pH 6.5, Urine Specific [place] 1.015, Urine Protein 1+H, Urine Glucose (UA) 3+H, Urine Ketones Negative , Urine Occult Blood 1+H, Urine Nitrite Negative, Urine Bilirubin Negative, Urine Urobilinogen 8H, Urine Leukocyte Esterase Negative, Urine RBC 0-2H, Urine WBC 0-2, Urine Squamous Epithelial Cells None, Urine Bacteria Few 01/15/18 06:15: Coccidioides Antibody (Comp Fix) [Pending] Current Medications Medications (Trade) Dose Ordered Sig/Lida Route PRN Reason Start Time Stop Time Status Last Admin Dose Admin Acetaminophen (Tylenol) 650 mg Q4H PRN ORAL Mild Pain/Temp > 100.5 01/10/18 12:15 02/09/18 12:14 01/15/18 12:45 Cefepime HCl 2 gm/ Sodium Chloride 110 ml @ 220 mls/hr EVERY 12 HOURS IV 01/09/18 09:00 01/16/18 23:59 01/15/18 09:58 Dextrose (Dextrose 50%) STAT PRN IV Hypoglycemia 01/09/18 06:30 02/08/18 06:29 Heparin Sodium (Porcine) (Heparin 5000 units/ml) 5,000 units EVERY 12 HOURS SUBQ 01/09/18 09:00 02/08/18 08:59 01/15/18 10:06 Insulin Aspart (NovoLOG) BEFORE MEALS AND HS SUBQ 01/09/18 06:30 02/08/18 06:29 01/15/18 16:41 Lansoprazole (Prevacid) 30 mg DAILY ORAL 01/09/18 16:30 02/08/18 16:29 01/15/18 09:58 Ondansetron HCl (Zofran) 4 mg Q6H PRN IVP Nausea & Vomiting 01/09/18 06:30 02/08/18 06:29 Polyethylene Glycol (Miralax) 17 gm DAILYPRN PRN ORAL Constipation 01/09/18 06:30 02/08/18 06:29 01/12/18 16:37 Promethazine HCl/ Codeine (Phenergan with Codeine) 5 ml Q4H PRN ORAL For Cough 01/09/18 06:30 02/08/18 06:29 Vancomycin HCl (Vanco rx to dose) 1 ea DAILY PRN MISC PRN RX TO DOSE PROTOCOL 01/09/18 15:45 02/08/18 15:44 Vancomycin HCl/ Dextrose 250 ml @ 166.667 mls/hr Q12HR@0400,1600 IVPB 01/14/18 04:00 01/19/18 03:59 01/15/18 16:39 BRENDON MEEHAN Jan 15, 2018 16:53
--- NOTE | 2018-01-15 16:56 | General Progress Note ---
Assessment/Plan Problem List: (1) Diabetes ICD Codes: E11.9 - Type 2 diabetes mellitus without complications SNOMED: 89291300 Qualifiers: Qualified Codes: E11.8 - Type 2 diabetes mellitus with unspecified complications (2) Hyponatremia ICD Codes: E87.1 - Hypo-osmolality and hyponatremia SNOMED: 19880205 (3) Pneumonia ICD Codes: J18.9 - Pneumonia, unspecified organism SNOMED: 300755801 Qualifiers: Qualified Codes: J18.1 - Lobar pneumonia, unspecified organism (4) Fever ICD Codes: R50.9 - Fever, unspecified SNOMED: 048289182 Assessment/Plan will consider dc in am afebrile pna improving ams lhyponatremia Subjective ROS Limited/Unobtainable: Yes Constitutional: Reports: no symptoms Allergies: Coded Allergies: No Known Allergies (Unverified , 01/08/18) Objective Last 24 Hour Vital Signs Date Time Temp Pulse Resp B/P (MAP) Pulse Ox O2 Delivery O2 Flow Rate FiO2 01/15/18 16:09 99.2 60 20 125/69 95 99.2 01/15/18 13:44 98.6 01/15/18 12:45 101.7 01/15/18 12:00 101.7 81 20 144/77 94 101.7 01/15/18 08:20 99.0 79 20 130/77 95 99.0 01/15/18 04:00 97.9 61 20 116/69 97 Room Air 97.9 01/15/18 00:00 97.7 60 18 118/58 97 Room Air 97.7 01/14/18 22:56 102.2 01/14/18 20:01 100.4 78 21 137/68 91 Room Air 100.4 01/14/18 19:14 91 18 Room Air 21 Intake and Output 01/14/18 01/15/18 19:00 07:00 Intake Total 840 ml 480.000 ml Balance 840 ml 480.000 ml Intake Oral 480 ml 120 ml IV Total 360 ml 360.000 ml # Voids 2 3 Laboratory Tests 01/14/18 21:40: Urine Color Yellow, Urine Appearance Clear, Urine pH 6.5, Urine Specific [place] 1.015, Urine Protein 1+H, Urine Glucose (UA) 3+H, Urine Ketones Negative , Urine Occult Blood 1+H, Urine Nitrite Negative, Urine Bilirubin Negative, Urine Urobilinogen 8H, Urine Leukocyte Esterase Negative, Urine RBC 0-2H, Urine WBC 0-2, Urine Squamous Epithelial Cells None, Urine Bacteria Few 01/15/18 06:15: Coccidioides Antibody (Comp Fix) [Pending] Height (Feet): 4 Height (Inches): 11.00 Weight (Pounds): 139 Cardiovascular: normal rate Respiratory/Chest: lungs clear Abdomen: soft Echo Baez MD Jan 15, 2018 16:56
[2018-01-16] VITALS: BP 133/78
[2018-01-16 04:00] VITALS: BP 128/70
[2018-01-16] MEDS: Vancomycin 1250mg/D5W 250ml 250 ML IVPB SCH ×2 (04:51→16:00)
[2018-01-16] MEDS: NovoLOG Insulin Flexpen SUBQ SCH ×4 (06:30→20:57)
[2018-01-16 07:58] LABS: ALANINE AMINOTRANSFERASE 45 U/L (12-78); ALBUMIN 2.3 G/DL (3.4-5.0); ALBUMIN/GLOBULIN RATIO 0.5 (1.0-2.7); ALKALINE PHOSPHATASE 93 U/L (46-116); ANION GAP 7 mmol/L (5-15); ASPARTATE AMINO TRANSFERASE 20 U/L (15-37); BILIRUBIN,TOTAL 0.6 MG/DL (0.2-1.0); BLOOD UREA NITROGEN 13 mg/dL (7-18); CALCIUM 8.5 MG/DL (8.5-10.1); CARBON DIOXIDE 28 MMOL/L (21-32); CHLORIDE 95 MMOL/L (98-107); CREATININE 0.8 MG/DL (0.55-1.30); PHOSPHORUS 3.1 MG/DL (2.5-4.9); POTASSIUM 4.2 MMOL/L (3.5-5.1); SODIUM 130 MMOL/L (136-145)
[2018-01-16 08:00] VITALS: BP 115/72
[2018-01-16] MEDS: Cefepime HCl 2 GM in NS 110 ML IV SCH ×2 (08:10→20:58)
[2018-01-16] MEDS: Heparin 5000 units/ml inj SUBQ SCH ×2 (08:11→21:00)
--- NOTE | 2018-01-16 10:27 | General Progress Note ---
Assessment/Plan Assessment/Plan 1. Anemia due to underlying chronic disease. --> Continue to closely monitor. --> Consider workup if hemoglobin downtrends. --> Mild at this time, hgb 13.7, does not require PRBC. 2. Fevers and chills, probably due to underlying pneumonia. 3. Pneumonia, upper right lobe. --> Continue to monitor. On antibiotics. 4. Hyponatremia potentially secondary to syndrome of inappropriate antidiuretic hormone. 5. Diabetes mellitus. Continue blood sugar goal between 80 and 120. 6. Hypoalbuminemia secondary to protein-calorie malnutrition. Subjective Date patient seen: Jan 15, 2018 Constitutional: Denies: no symptoms, chills, diaphoresis, fever, malaise, weakness, other HEENT: Denies: no symptoms, eye pain, blurred vision, tearing, double vision, ear pain, ear discharge, nose pain, nose congestion, throat pain, throat swelling, mouth pain, mouth swelling, other Cardiovascular: Denies: no symptoms, chest pain, edema, irregular heart rate, lightheadedness, palpitations, syncope, other Respiratory: Denies: no symptoms, cough, orthopnea, shortness of breath, SOB with excertion, SOB at rest, sputum, stridor, wheezing, other Gastrointestinal/Abdominal: Denies: no symptoms, abdomen distended, abdominal pain, black stools, tarry stools, blood in stool, constipated, diarrhea, difficulty swallowing, nausea, poor appetite, poor fluid intake, rectal bleeding , vomiting, other Genitourinary: Denies: no symptoms, burning, discharge, frequency, flank pain, hematuria, incontinence, pain, urgency, other Neurologic/Psychiatric: Denies: no symptoms, anxiety, depressed, emotional problems, headache, numbness, paresthesia, pre-existing deficit, seizure, tingling, tremors, weakness, other Allergies: Coded Allergies: No Known Allergies (Unverified , 01/08/18) Subjective H/H mild. On antibiotics. No major events. Objective Last 24 Hour Vital Signs Date Time Temp Pulse Resp B/P (MAP) Pulse Ox O2 Delivery O2 Flow Rate FiO2 01/16/18 08:00 98.5 77 21 115/72 97 98.5 01/16/18 04:00 99.8 59 18 128/70 95 99.8 01/16/18 01:43 99.5 01/16/18 00:44 100.9 01/16/18 00:00 100.9 82 18 133/78 93 100.9 01/15/18 19:10 92 18 Room Air 21 01/15/18 16:09 99.2 60 20 125/69 95 99.2 01/15/18 12:45 101.7 01/15/18 12:00 101.7 81 20 144/77 94 101.7 Intake and Output 01/15/18 01/16/18 19:00 07:00 Intake Total 240 ml 396.667 ml Output Total 400 ml 1 ml Balance -160 ml 395.667 ml Intake Oral 240 ml 120 ml IV Total 276.667 ml Output Urine Total 400 ml 1 ml Labs Test 01/13/18 19:10 01/14/18 06:50 01/14/18 21:40 01/15/18 06:15 Vancomycin Level Trough 6.4 ug/mL (5.0-12.0) White Blood Count 6.8 K/UL (4.8-10.8) Red Blood Count 4.67 M/UL (4.70-6.10) Hemoglobin 13.7 G/DL (14.2-18.0) Hematocrit 39.5 % (42.0-52.0) Mean Corpuscular Volume 85 FL (80-99) Mean Corpuscular Hemoglobin 29.4 PG (27.0-31.0) Mean Corpuscular Hemoglobin Concent 34.7 G/DL (32.0-36.0) Red Cell Distribution Width 11.2 % (11.6-14.8) Platelet Count 203 K/UL (150-450) Mean Platelet Volume 5.3 FL (6.5-10.1) Neutrophils (%) (Auto) 78.7 % (45.0-75.0) Lymphocytes (%) (Auto) 11.9 % (20.0-45.0) Monocytes (%) (Auto) 8.0 % (1.0-10.0) Eosinophils (%) (Auto) 0.9 % (0.0-3.0) Basophils (%) (Auto) 0.5 % (0.0-2.0) Sodium Level 132 MMOL/L (136-145) Potassium Level 3.6 MMOL/L (3.5-5.1) Chloride Level 98 MMOL/L (98-107) Carbon Dioxide Level 28 MMOL/L (21-32) Anion Gap 6 mmol/L (5-15) Blood Urea Nitrogen 13 mg/dL (7-18) Creatinine 0.8 MG/DL (0.55-1.30) Estimat Glomerular Filtration Rate > 60 mL/min (>60) Glucose Level 173 MG/DL (74-106) Calcium Level 8.2 MG/DL (8.5-10.1) Total Bilirubin 0.5 MG/DL (0.2-1.0) Aspartate Amino Transf (AST/SGOT) 22 U/L (15-37) Alanine Aminotransferase (ALT/SGPT) 50 U/L (12-78) Alkaline Phosphatase 77 U/L (46-116) Total Protein 7.0 G/DL (6.4-8.2) Albumin 2.1 G/DL (3.4-5.0) Globulin 4.9 g/dL Albumin/Globulin Ratio 0.4 (1.0-2.7) HIV (1&2) Antibody Rapid Negative (NEGATIVE) Urine Color Yellow Urine Appearance Clear Urine pH 6.5 (4.5-8.0) Urine Specific [place] 1.015 (1.005-1.035) Urine Protein 1+ (NEGATIVE) Urine Glucose (UA) 3+ (NEGATIVE) Urine Ketones Negative (NEGATIVE) Urine Occult Blood 1+ (NEGATIVE) Urine Nitrite Negative (NEGATIVE) Urine Bilirubin Negative (NEGATIVE) Urine Urobilinogen 8 MG/DL (0.0-1.0) Urine Leukocyte Esterase Negative (NEGATIVE) Urine RBC 0-2 /HPF (0 - 0) Urine WBC 0-2 /HPF (0 - 0) Urine Squamous Epithelial Cells None /LPF (NONE/OCC) Urine Bacteria Few /HPF (NONE) Test 01/16/18 06:20 Sodium Level 130 MMOL/L (136-145) Potassium Level 4.2 MMOL/L (3.5-5.1) Chloride Level 95 MMOL/L (98-107) Carbon Dioxide Level 28 MMOL/L (21-32) Anion Gap 7 mmol/L (5-15) Blood Urea Nitrogen 13 mg/dL (7-18) Creatinine 0.8 MG/DL (0.55-1.30) Estimat Glomerular Filtration Rate > 60 mL/min (>60) Glucose Level 140 MG/DL (74-106) Uric Acid 1.4 MG/DL (2.6-7.2) Calcium Level 8.5 MG/DL (8.5-10.1) Phosphorus Level 3.1 MG/DL (2.5-4.9) Magnesium Level 2.1 MG/DL (1.8-2.4) Total Bilirubin 0.6 MG/DL (0.2-1.0) Aspartate Amino Transf (AST/SGOT) 20 U/L (15-37) Alanine Aminotransferase (ALT/SGPT) 45 U/L (12-78) Alkaline Phosphatase 93 U/L (46-116) C-Reactive Protein, Quantitative 1.4 mg/dL (0.00-0.90) Total Protein 7.1 G/DL (6.4-8.2) Albumin 2.3 G/DL (3.4-5.0) Globulin 4.8 g/dL Albumin/Globulin Ratio 0.5 (1.0-2.7) Laboratory Tests 01/16/18 06:20: Sodium Level 130L, Potassium Level 4.2, Chloride Level 95L, Carbon Dioxide Level 28, Anion Gap 7, Blood Urea Nitrogen 13, Creatinine 0.8, Estimat Glomerular Filtration Rate > 60, Glucose Level 140H, Uric Acid 1.4L, Calcium Level 8.5, Phosphorus Level 3.1, Magnesium Level 2.1, Total Bilirubin 0.6, Aspartate Amino Transf (AST/SGOT) 20, Alanine Aminotransferase (ALT/SGPT) 45, Alkaline Phosphatase 93, C-Reactive Protein, Quantitative 1.4H, Total Protein 7.1, Albumin 2.3L, Globulin 4.8, Albumin/Globulin Ratio 0.5L Height (Feet): 4 Height (Inches): 11.00 Weight (Pounds): 139 General Appearance: no apparent distress Respiratory/Chest: decreased breath sounds Abdomen: non tender, soft Edema: trace edema Skin: warm/dry Vic Anderson Jan 16, 2018 10:27
--- NOTE | 2018-01-16 11:18 | Infectious Diseases Prog Note ---
Assessment/Plan Assessment/Plan A; Pneumonia R/O TB, T spot negative, AFB X 2 : neg Persistent fever SIADH DM type 2 P; Continue Cefepime & Vancomycin will f/u cultures, serologies will f/u CT scan of abdomen & pelvis with contrast Subjective ROS Limited/Unobtainable: Yes Constitutional: Reports: fever, other - Irfs=131.9 Respiratory: Reports: no symptoms Gastrointestinal/Abdominal: Reports: no symptoms Genitourinary: Reports: no symptoms Allergies: Coded Allergies: No Known Allergies (Unverified , 01/08/18) Objective Vital Signs Last 24 Hour Vital Signs Date Time Temp Pulse Resp B/P (MAP) Pulse Ox O2 Delivery O2 Flow Rate FiO2 01/16/18 08:14 90 18 Room Air 21 01/16/18 08:00 98.5 77 21 115/72 97 98.5 01/16/18 04:00 99.8 59 18 128/70 95 99.8 01/16/18 01:43 99.5 01/16/18 00:44 100.9 01/16/18 00:00 100.9 82 18 133/78 93 100.9 01/15/18 19:10 92 18 Room Air 21 01/15/18 16:09 99.2 60 20 125/69 95 99.2 01/15/18 12:45 101.7 01/15/18 12:00 101.7 81 20 144/77 94 101.7 Height (Feet): 4 Height (Inches): 11.00 Weight (Pounds): 139 General Appearance: no acute distress HEENT: mucous membranes moist Respiratory/Chest: lungs clear Cardiovascular: normal rate Abdomen: soft, non tender Extremities: no edema Neurologic/Psychiatric: alert, responsive Microbiology Date/Time Source Procedure Growth Status 01/13/18 17:00 Sputum AFB Specimen Processing Tissue - Final Resulted 01/13/18 17:00 Sputum Acid Fast Bacilli Smear - Final Resulted 01/13/18 17:00 Sputum Acid Fast Bacilli Culture Pending Resulted Laboratory Tests Test 01/16/18 06:20 Sodium Level 130 MMOL/L (136-145) L Potassium Level 4.2 MMOL/L (3.5-5.1) Chloride Level 95 MMOL/L (98-107) L Carbon Dioxide Level 28 MMOL/L (21-32) Anion Gap 7 mmol/L (5-15) Blood Urea Nitrogen 13 mg/dL (7-18) Creatinine 0.8 MG/DL (0.55-1.30) Estimat Glomerular Filtration Rate > 60 mL/min (>60) Glucose Level 140 MG/DL (74-106) H Uric Acid 1.4 MG/DL (2.6-7.2) L Calcium Level 8.5 MG/DL (8.5-10.1) Phosphorus Level 3.1 MG/DL (2.5-4.9) Magnesium Level 2.1 MG/DL (1.8-2.4) Total Bilirubin 0.6 MG/DL (0.2-1.0) Aspartate Amino Transf (AST/SGOT) 20 U/L (15-37) Alanine Aminotransferase (ALT/SGPT) 45 U/L (12-78) Alkaline Phosphatase 93 U/L (46-116) C-Reactive Protein, Quantitative 1.4 mg/dL (0.00-0.90) H Total Protein 7.1 G/DL (6.4-8.2) Albumin 2.3 G/DL (3.4-5.0) L Globulin 4.8 g/dL Albumin/Globulin Ratio 0.5 (1.0-2.7) L Current Medications Medications (Trade) Dose Ordered Sig/Lida Route PRN Reason Start Time Stop Time Status Last Admin Dose Admin Acetaminophen (Tylenol) 650 mg Q4H PRN ORAL Mild Pain/Temp > 100.5 01/10/18 12:15 02/09/18 12:14 01/16/18 00:44 Cefepime HCl 2 gm/ Sodium Chloride 110 ml @ 220 mls/hr EVERY 12 HOURS IV 01/09/18 09:00 01/16/18 23:59 01/16/18 08:10 Dextrose (Dextrose 50%) STAT PRN IV Hypoglycemia 01/09/18 06:30 02/08/18 06:29 Heparin Sodium (Porcine) (Heparin 5000 units/ml) 5,000 units EVERY 12 HOURS SUBQ 01/09/18 09:00 02/08/18 08:59 01/15/18 21:38 Insulin Aspart (NovoLOG) BEFORE MEALS AND HS SUBQ 01/09/18 06:30 02/08/18 06:29 01/15/18 21:38 Lansoprazole (Prevacid) 30 mg DAILY ORAL 01/09/18 16:30 02/08/18 16:29 01/16/18 08:08 Ondansetron HCl (Zofran) 4 mg Q6H PRN IVP Nausea & Vomiting 01/09/18 06:30 02/08/18 06:29 Polyethylene Glycol (Miralax) 17 gm DAILYPRN PRN ORAL Constipation 01/09/18 06:30 02/08/18 06:29 01/12/18 16:37 Promethazine HCl/ Codeine (Phenergan with Codeine) 5 ml Q4H PRN ORAL For Cough 01/09/18 06:30 02/08/18 06:29 Vancomycin HCl (Vanco rx to dose) 1 ea DAILY PRN MISC PRN RX TO DOSE PROTOCOL 01/09/18 15:45 02/08/18 15:44 Vancomycin HCl/ Dextrose 250 ml @ 166.667 mls/hr Q12HR@0400,1600 IVPB 01/14/18 04:00 01/19/18 03:59 01/16/18 04:51 STACIA HANDY Jan 16, 2018 11:18
--- NOTE | 2018-01-16 11:58 | Diagnostic Imaging Report ---
Clinical Indication: Abdominal pain, diarrhea Technique: Patient given oral contrast. IV administration nonionic contrast. Venous phase spiral acquisition obtained through the abdomen and pelvis. Multiplanar reconstructions were generated. Total dose length product 703.66 mGycm. CTDIvol(s) 13.21 mGy. Dose reduction achieved using automated exposure control Comparison: none Findings: No evidence of diverticulosis or diverticulitis. The appendix is normal. No small bowel distention or small bowel wall thickening. No free or loculated peritoneal air or fluid is evident. Contrast is seen as far distally as the terminal ileum. The distal esophagus, stomach, duodenum are unremarkable. Gallstones are seen within the gallbladder, which is nondistended. No biliary ductal dilatation. The liver, pancreas, spleen, adrenals, kidneys are unremarkable. No retroperitoneal or mesenteric mass or adenopathy. No pelvic mass or adenopathy. The prostate is prominent, contains calcifications. There is a high riding right testicle, which is in the lower inguinal canal. The lung bases demonstrate extensive interstitial disease on the right, less extensive interstitial disease on the left which is similar to prior to 05/02/[address] The bones are unremarkable Impression: No acute abdominal or pelvic process Cholelithiasis Elevated right testicle, possibly incompletely distended were transiently elevated Bilateral basilar interstitial lung disease, similar to that reported on prior CT of the chest of 01/11/[address] scanner at [facility] is accredited by the [employer] and the scans are performed using protocols designed to limit radiation exposure to as low as reasonably achievable to attain images of sufficient resolution adequate for diagnostic evaluation.
[2018-01-16 12:00] VITALS: BP 151/87
--- NOTE | 2018-01-16 13:04 | General Progress Note ---
Assessment/Plan Problem List: (1) Diabetes ICD Codes: E11.9 - Type 2 diabetes mellitus without complications SNOMED: 51279124 Qualifiers: Qualified Codes: E11.8 - Type 2 diabetes mellitus with unspecified complications (2) Hyponatremia ICD Codes: E87.1 - Hypo-osmolality and hyponatremia SNOMED: 74649950 (3) Pneumonia ICD Codes: J18.9 - Pneumonia, unspecified organism SNOMED: 812015315 Qualifiers: Qualified Codes: J18.1 - Lobar pneumonia, unspecified organism (4) Fever ICD Codes: R50.9 - Fever, unspecified SNOMED: 762460305 Status: progressing Assessment/Plan PNA intermittent fever needs id and pna clearance before dc lhyponatremia Subjective ROS Limited/Unobtainable: Yes Allergies: Coded Allergies: No Known Allergies (Unverified , 01/08/18) Objective Last 24 Hour Vital Signs Date Time Temp Pulse Resp B/P (MAP) Pulse Ox O2 Delivery O2 Flow Rate FiO2 01/16/18 12:00 98.1 82 20 151/87 97 98.1 01/16/18 08:14 90 18 Room Air 21 01/16/18 08:00 98.5 77 21 115/72 97 98.5 01/16/18 04:00 99.8 59 18 128/70 95 99.8 01/16/18 01:43 99.5 01/16/18 00:44 100.9 01/16/18 00:00 100.9 82 18 133/78 93 100.9 01/15/18 19:10 92 18 Room Air 21 01/15/18 16:09 99.2 60 20 125/69 95 99.2 Intake and Output 01/15/18 01/16/18 19:00 07:00 Intake Total 240 ml 396.667 ml Output Total 400 ml 1 ml Balance -160 ml 395.667 ml Intake Oral 240 ml 120 ml IV Total 276.667 ml Output Urine Total 400 ml 1 ml Laboratory Tests 01/16/18 06:20: Sodium Level 130L, Potassium Level 4.2, Chloride Level 95L, Carbon Dioxide Level 28, Anion Gap 7, Blood Urea Nitrogen 13, Creatinine 0.8, Estimat Glomerular Filtration Rate > 60, Glucose Level 140H, Uric Acid 1.4L, Calcium Level 8.5, Phosphorus Level 3.1, Magnesium Level 2.1, Total Bilirubin 0.6, Aspartate Amino Transf (AST/SGOT) 20, Alanine Aminotransferase (ALT/SGPT) 45, Alkaline Phosphatase 93, C-Reactive Protein, Quantitative 1.4H, Total Protein 7.1, Albumin 2.3L, Globulin 4.8, Albumin/Globulin Ratio 0.5L Height (Feet): 4 Height (Inches): 11.00 Weight (Pounds): 139 Neck: supple Cardiovascular: normal rate Respiratory/Chest: lungs clear Echo Baez MD Jan 16, 2018 13:03
--- NOTE | 2018-01-16 13:25 | Nephrology Progress Note ---
Assessment/Plan Problem List: (1) Hyponatremia (2) Pneumonia (3) Diabetes (4) SIADH (syndrome of inappropriate ADH production) Assessment - Low Na likely SIADH ( High Rosanna , low Uric... today 132 - Pneumonia - Diabetes Plan Plan: no labs today PO Fluid restriction Monitor lytes per consultants Subjective ROS Limited/Unobtainable: No Constitutional: Reports: malaise Objective Objective Last 24 Hour Vital Signs Date Time Temp Pulse Resp B/P (MAP) Pulse Ox O2 Delivery O2 Flow Rate FiO2 01/16/18 12:00 98.1 82 20 151/87 97 98.1 01/16/18 08:14 90 18 Room Air 21 01/16/18 08:00 98.5 77 21 115/72 97 98.5 01/16/18 04:00 99.8 59 18 128/70 95 99.8 01/16/18 01:43 99.5 01/16/18 00:44 100.9 01/16/18 00:00 100.9 82 18 133/78 93 100.9 01/15/18 19:10 92 18 Room Air 21 01/15/18 16:09 99.2 60 20 125/69 95 99.2 Intake and Output 01/15/18 01/16/18 19:00 07:00 Intake Total 240 ml 396.667 ml Output Total 400 ml 1 ml Balance -160 ml 395.667 ml Intake Oral 240 ml 120 ml IV Total 276.667 ml Output Urine Total 400 ml 1 ml Laboratory Tests 01/16/18 06:20: Sodium Level 130L, Potassium Level 4.2, Chloride Level 95L, Carbon Dioxide Level 28, Anion Gap 7, Blood Urea Nitrogen 13, Creatinine 0.8, Estimat Glomerular Filtration Rate > 60, Glucose Level 140H, Uric Acid 1.4L, Calcium Level 8.5, Phosphorus Level 3.1, Magnesium Level 2.1, Total Bilirubin 0.6, Aspartate Amino Transf (AST/SGOT) 20, Alanine Aminotransferase (ALT/SGPT) 45, Alkaline Phosphatase 93, C-Reactive Protein, Quantitative 1.4H, Total Protein 7.1, Albumin 2.3L, Globulin 4.8, Albumin/Globulin Ratio 0.5L Height (Feet): 4 Height (Inches): 11.00 Weight (Pounds): 139 General Appearance: no apparent distress Objective no change FOULADIAN,SERA Jan 16, 2018 13:24
[2018-01-16] MEDS ORDERED: Albuterol/Ipratropium 3ml neb HHN PRN (15:15)
--- NOTE | 2018-01-16 15:21 | Pulmonology Progress Note ---
Assessment/Plan Assessment/Plan ASSESSMENT PNA r/o TB DM type2 Hypo Na likely SIADH anemia of chronic disease persistent fevers PLAN OF CARE MS floor isolation T spot negative sputum AFB x2 consecutive negative and previous one negative as well serology so far all negative ( pending Histoplasmoses and cocci) sputum cx pending empiric abx urine cx negative, influenza screen negative, blood cx negative , ID follows persistent fevers CT A/P no acute intraabdominal pathology noted fup with CXR O2 HHN prn BS management with SS insulin HgA1c not at goal-8.9, but BS stable with SS insulin, likely noncompliance with meds at home nephro follows, likely SIADH given hypo Na w/up monitor renal parameters, lytes, correct lytes as needed montro counts, transfuse prn anemia w/up c/w anemia of chronic disease DVT GI prophylaxis case discussed and evaluated by supervising physician Subjective Allergies: Coded Allergies: No Known Allergies (Unverified , 01/08/18) Subjective no leucocytosis, still with low grade fever on isolation pulse ox stable on RA Na -130 Objective Last 24 Hour Vital Signs Date Time Temp Pulse Resp B/P (MAP) Pulse Ox O2 Delivery O2 Flow Rate FiO2 01/16/18 12:00 98.1 82 20 151/87 97 98.1 01/16/18 08:14 90 18 Room Air 21 01/16/18 08:00 98.5 77 21 115/72 97 98.5 01/16/18 04:00 99.8 59 18 128/70 95 99.8 01/16/18 01:43 99.5 01/16/18 00:44 100.9 01/16/18 00:00 100.9 82 18 133/78 93 100.9 01/15/18 19:10 92 18 Room Air 21 01/15/18 16:09 99.2 60 20 125/69 95 99.2 Intake and Output 01/15/18 01/16/18 19:00 07:00 Intake Total 240 ml 396.667 ml Output Total 400 ml 1 ml Balance -160 ml 395.667 ml Intake Oral 240 ml 120 ml IV Total 276.667 ml Output Urine Total 400 ml 1 ml General Appearance: no acute distress HEENT: normocephalic, atraumatic, anicteric, mucous membranes moist Respiratory/Chest: lungs clear - with moderate air exchange , no respiratory distress, no accessory muscle use Cardiovascular: normal rate, regular rhythm Abdomen: normal bowel sounds, soft, non tender, non distended Extremities: no edema, pedal pulses normal Neurologic/Psychiatric: alert, oriented x 3, responsive Musculoskeletal: normal muscle bulk Microbiology Date/Time Source Procedure Growth Status 01/15/18 10:00 Sputum Gram Stain - Final Resulted 01/15/18 10:00 Sputum Sputum Culture Pending Resulted 01/14/18 18:00 Sputum AFB Specimen Processing Tissue - Final Resulted 01/14/18 18:00 Sputum Acid Fast Bacilli Smear - Final Resulted 01/14/18 18:00 Sputum Acid Fast Bacilli Culture Pending Resulted 01/13/18 17:00 Sputum AFB Specimen Processing Tissue - Final Resulted 01/13/18 17:00 Sputum Acid Fast Bacilli Smear - Final Resulted 01/13/18 17:00 Sputum Acid Fast Bacilli Culture Pending Resulted Laboratory Tests 01/16/18 06:20: Sodium Level 130L, Potassium Level 4.2, Chloride Level 95L, Carbon Dioxide Level 28, Anion Gap 7, Blood Urea Nitrogen 13, Creatinine 0.8, Estimat Glomerular Filtration Rate > 60, Glucose Level 140H, Uric Acid 1.4L, Calcium Level 8.5, Phosphorus Level 3.1, Magnesium Level 2.1, Total Bilirubin 0.6, Aspartate Amino Transf (AST/SGOT) 20, Alanine Aminotransferase (ALT/SGPT) 45, Alkaline Phosphatase 93, C-Reactive Protein, Quantitative 1.4H, Total Protein 7.1, Albumin 2.3L, Globulin 4.8, Albumin/Globulin Ratio 0.5L Current Medications Medications (Trade) Dose Ordered Sig/Lida Route PRN Reason Start Time Stop Time Status Last Admin Dose Admin Acetaminophen (Tylenol) 650 mg Q4H PRN ORAL Mild Pain/Temp > 100.5 01/10/18 12:15 02/09/18 12:14 01/16/18 00:44 Cefepime HCl 2 gm/ Sodium Chloride 110 ml @ 220 mls/hr EVERY 12 HOURS IV 01/09/18 09:00 01/23/18 08:59 01/16/18 08:10 Dextrose (Dextrose 50%) STAT PRN IV Hypoglycemia 01/09/18 06:30 02/08/18 06:29 Heparin Sodium (Porcine) (Heparin 5000 units/ml) 5,000 units EVERY 12 HOURS SUBQ 01/09/18 09:00 02/08/18 08:59 01/15/18 21:38 Insulin Aspart (NovoLOG) BEFORE MEALS AND HS SUBQ 01/09/18 06:30 02/08/18 06:29 01/16/18 12:08 Lansoprazole (Prevacid) 30 mg DAILY ORAL 01/09/18 16:30 02/08/18 16:29 01/16/18 08:08 Ondansetron HCl (Zofran) 4 mg Q6H PRN IVP Nausea & Vomiting 01/09/18 06:30 02/08/18 06:29 Polyethylene Glycol (Miralax) 17 gm DAILYPRN PRN ORAL Constipation 01/09/18 06:30 02/08/18 06:29 01/12/18 16:37 Promethazine HCl/ Codeine (Phenergan with Codeine) 5 ml Q4H PRN ORAL For Cough 01/09/18 06:30 02/08/18 06:29 Vancomycin HCl (Vanco rx to dose) 1 ea DAILY PRN MISC PRN RX TO DOSE PROTOCOL 01/09/18 15:45 02/08/18 15:44 Vancomycin HCl/ Dextrose 250 ml @ 166.667 mls/hr Q12HR@0400,1600 IVPB 01/14/18 04:00 01/19/18 03:59 01/16/18 04:51 Tonie Asher NP ([facility]) Jan 16, 2018 15:21
[2018-01-16 16:22] VITALS: BP 147/80
[2018-01-16 20:05] VITALS: BP 108/65
[2018-01-17] VITALS (7 sets, daily range): BP systolic 103–165; BP diastolic 61–81
[2018-01-17] MEDS: Vancomycin 1250mg/D5W 250ml 250 ML IVPB SCH (04:30)
[2018-01-17] MEDS: NovoLOG Insulin Flexpen SUBQ SCH ×4 (06:02→20:56)
[2018-01-17 07:01] LABS: BASOPHILS % (AUTO) 0.5 % (0.0-2.0); EOSINOPHILS % (AUTO) 1.2 % (0.0-3.0); HEMATOCRIT 36.7 % (42.0-52.0); HEMOGLOBIN 13.5 G/DL (14.2-18.0); LYMPHOCYTES % (AUTO) 9.7 % (20.0-45.0); MEAN CORPUSCULAR VOLUME 83 FL (80-99); MONOCYTES % (AUTO) 5.1 % (1.0-10.0); NEUTROPHILS % (AUTO) 83.5 % (45.0-75.0); PLATELET COUNT 188 K/UL (150-450); RED CELL DISTRIBUTION WIDTH 11.4 % (11.6-14.8); WHITE BLOOD COUNT 7.5 K/UL (4.8-10.8)
[2018-01-17 08:31] LABS: ANION GAP 7 mmol/L (5-15); BLOOD UREA NITROGEN 8 mg/dL (7-18); CALCIUM 7.8 MG/DL (8.5-10.1); CARBON DIOXIDE 26 MMOL/L (21-32); CHLORIDE 91 MMOL/L (98-107); CREATININE 0.7 MG/DL (0.55-1.30); POTASSIUM 3.5 MMOL/L (3.5-5.1); SODIUM 124 MMOL/L (136-145)
[2018-01-17] MEDS: Cefepime HCl 2 GM in NS 110 ML IV SCH (08:56)
[2018-01-17] MEDS: Heparin 5000 units/ml inj SUBQ SCH ×2 (09:04→20:57)
--- NOTE | 2018-01-17 09:12 | Diagnostic Imaging Report ---
Indication: Shortness of breath Technique: One view of the chest Comparison: 01/14/2018 Findings: Stable or perhaps minimally improved right perihilar consolidation. Less optimal inspiration. Prominence of the Bronchovascular markings in the left infrahilar region is probably an artifact of the poor inspiration. Developing mostly interstitial infiltrate in the left infrahilar region is possible, however. The pleural spaces remain clear. The heart size is normal. Impression: Stable or perhaps minimally improved fairly extensive right perihilar infiltrate, over 3 days Possibly developing left infrahilar infiltrate. Recommend further follow-up imaging as indicated
--- NOTE | 2018-01-17 09:45 | General Progress Note ---
Assessment/Plan Assessment/Plan 1. Anemia due to underlying chronic disease. --> Continue to closely monitor. --> Consider workup if hemoglobin downtrends. --> Mild at this time, hgb 13.7, does not require PRBC. 2. Fevers and chills, probably due to underlying pneumonia. 3. Pneumonia, upper right lobe. --> Continue to monitor. On antibiotics. --> Consider ID recs. 4. Hyponatremia potentially secondary to syndrome of inappropriate antidiuretic hormone. 5. Diabetes mellitus. Continue blood sugar goal between 80 and 120. 6. Hypoalbuminemia secondary to protein-calorie malnutrition. Subjective Date patient seen: Jan 16, 2018 Constitutional: Denies: no symptoms, chills, diaphoresis, fever, malaise, weakness, other HEENT: Denies: no symptoms, eye pain, blurred vision, tearing, double vision, ear pain, ear discharge, nose pain, nose congestion, throat pain, throat swelling, mouth pain, mouth swelling, other Cardiovascular: Denies: no symptoms, chest pain, edema, irregular heart rate, lightheadedness, palpitations, syncope, other Respiratory: Denies: no symptoms, cough, orthopnea, shortness of breath, SOB with excertion, SOB at rest, sputum, stridor, wheezing, other Gastrointestinal/Abdominal: Denies: no symptoms, abdomen distended, abdominal pain, black stools, tarry stools, blood in stool, constipated, diarrhea, difficulty swallowing, nausea, poor appetite, poor fluid intake, rectal bleeding , vomiting, other Genitourinary: Denies: no symptoms, burning, discharge, frequency, flank pain, hematuria, incontinence, pain, urgency, other Hematologic/Lymphatic: Reports: anemia Allergies: Coded Allergies: No Known Allergies (Unverified , 01/08/18) Subjective Pt has a low grade fever. Resting in bed. H/H stable. Objective Last 24 Hour Vital Signs Date Time Temp Pulse Resp B/P (MAP) Pulse Ox O2 Delivery O2 Flow Rate FiO2 01/17/18 08:00 97.9 57 20 165/71 98 97.9 01/17/18 04:44 Room Air 01/17/18 04:43 97.9 63 19 103/61 94 97.9 01/17/18 00:10 97.6 66 17 111/62 94 97.6 01/16/18 20:05 97.8 70 18 108/65 94 97.8 01/16/18 19:59 88 18 Room Air 21 01/16/18 17:40 99.5 01/16/18 16:41 100.8 01/16/18 16:22 100.8 91 20 147/80 99 Room Air 100.8 01/16/18 12:00 98.1 82 20 151/87 97 98.1 Intake and Output 01/16/18 01/17/18 19:00 07:00 Intake Total 240 ml 610.000 ml Output Total 401 ml Balance -161 ml 610.000 ml Intake Oral 240 ml 360 ml IV Total 250.000 ml Output Urine Total 401 ml # Voids 4 Labs Test 01/14/18 21:40 01/15/18 06:15 01/15/18 10:00 01/16/18 06:20 Urine Color Yellow Urine Appearance Clear Urine pH 6.5 (4.5-8.0) Urine Specific [place] 1.015 (1.005-1.035) Urine Protein 1+ (NEGATIVE) Urine Glucose (UA) 3+ (NEGATIVE) Urine Ketones Negative (NEGATIVE) Urine Occult Blood 1+ (NEGATIVE) Urine Nitrite Negative (NEGATIVE) Urine Bilirubin Negative (NEGATIVE) Urine Urobilinogen 8 MG/DL (0.0-1.0) Urine Leukocyte Esterase Negative (NEGATIVE) Urine RBC 0-2 /HPF (0 - 0) Urine WBC 0-2 /HPF (0 - 0) Urine Squamous Epithelial Cells None /LPF (NONE/OCC) Urine Bacteria Few /HPF (NONE) Sodium Level 130 MMOL/L (136-145) Potassium Level 4.2 MMOL/L (3.5-5.1) Chloride Level 95 MMOL/L (98-107) Carbon Dioxide Level 28 MMOL/L (21-32) Anion Gap 7 mmol/L (5-15) Blood Urea Nitrogen 13 mg/dL (7-18) Creatinine 0.8 MG/DL (0.55-1.30) Estimat Glomerular Filtration Rate > 60 mL/min (>60) Glucose Level 140 MG/DL (74-106) Uric Acid 1.4 MG/DL (2.6-7.2) Calcium Level 8.5 MG/DL (8.5-10.1) Phosphorus Level 3.1 MG/DL (2.5-4.9) Magnesium Level 2.1 MG/DL (1.8-2.4) Total Bilirubin 0.6 MG/DL (0.2-1.0) Aspartate Amino Transf (AST/SGOT) 20 U/L (15-37) Alanine Aminotransferase (ALT/SGPT) 45 U/L (12-78) Alkaline Phosphatase 93 U/L (46-116) C-Reactive Protein, Quantitative 1.4 mg/dL (0.00-0.90) Total Protein 7.1 G/DL (6.4-8.2) Albumin 2.3 G/DL (3.4-5.0) Globulin 4.8 g/dL Albumin/Globulin Ratio 0.5 (1.0-2.7) Test 01/17/18 06:15 White Blood Count 7.5 K/UL (4.8-10.8) Red Blood Count 4.40 M/UL (4.70-6.10) Hemoglobin 13.5 G/DL (14.2-18.0) Hematocrit 36.7 % (42.0-52.0) Mean Corpuscular Volume 83 FL (80-99) Mean Corpuscular Hemoglobin 30.6 PG (27.0-31.0) Mean Corpuscular Hemoglobin Concent 36.8 G/DL (32.0-36.0) Red Cell Distribution Width 11.4 % (11.6-14.8) Platelet Count 188 K/UL (150-450) Mean Platelet Volume 5.9 FL (6.5-10.1) Neutrophils (%) (Auto) 83.5 % (45.0-75.0) Lymphocytes (%) (Auto) 9.7 % (20.0-45.0) Monocytes (%) (Auto) 5.1 % (1.0-10.0) Eosinophils (%) (Auto) 1.2 % (0.0-3.0) Basophils (%) (Auto) 0.5 % (0.0-2.0) Sodium Level 124 MMOL/L (136-145) Potassium Level 3.5 MMOL/L (3.5-5.1) Chloride Level 91 MMOL/L (98-107) Carbon Dioxide Level 26 MMOL/L (21-32) Anion Gap 7 mmol/L (5-15) Blood Urea Nitrogen 8 mg/dL (7-18) Creatinine 0.7 MG/DL (0.55-1.30) Estimat Glomerular Filtration Rate > 60 mL/min (>60) Glucose Level 214 MG/DL (74-106) Calcium Level 7.8 MG/DL (8.5-10.1) Laboratory Tests 01/17/18 06:15: White Blood Count 7.5, Red Blood Count 4.40L, Hemoglobin 13.5L, Hematocrit 36.7L , Mean Corpuscular Volume 83, Mean Corpuscular Hemoglobin 30.6, Mean Corpuscular Hemoglobin Concent 36.8H, Red Cell Distribution Width 11.4L, Platelet Count 188, Mean Platelet Volume 5.9L, Neutrophils (%) (Auto) 83.5H, Lymphocytes (%) (Auto) 9.7L, Monocytes (%) (Auto) 5.1, Eosinophils (%) (Auto) 1.2, Basophils (%) (Auto) 0.5, Sodium Level 124L, Potassium Level 3.5, Chloride Level 91L, Carbon Dioxide Level 26, Anion Gap 7, Blood Urea Nitrogen 8, Creatinine 0.7, Estimat Glomerular Filtration Rate > 60, Glucose Level 214H, Calcium Level 7.8L Height (Feet): 4 Height (Inches): 11.00 Weight (Pounds): 139 General Appearance: lethargic Respiratory/Chest: decreased breath sounds Vic Anderson Jan 17, 2018 09:45
--- NOTE | 2018-01-17 10:30 | Infectious Diseases Prog Note ---
Assessment/Plan Assessment/Plan A; Pneumonia s/p 7 days treatment Doubt TB, T spot negative, AFB X 3 : neg Persistent fever SIADH DM type 2 P; discontinue Cefepime & Vancomycin Consider removal off airborne isolation Consider bronchoscopy & biopsy case was D/W family Subjective ROS Limited/Unobtainable: Yes Constitutional: Reports: other - no fever since am Respiratory: Reports: no symptoms Allergies: Coded Allergies: No Known Allergies (Unverified , 01/08/18) Objective Vital Signs Last 24 Hour Vital Signs Date Time Temp Pulse Resp B/P (MAP) Pulse Ox O2 Delivery O2 Flow Rate FiO2 01/17/18 09:00 149/76 98 Room Air 01/17/18 08:00 Room Air 01/17/18 08:00 97.9 57 20 165/71 98 97.9 01/17/18 04:44 Room Air 01/17/18 04:43 97.9 63 19 103/61 94 97.9 01/17/18 00:10 97.6 66 17 111/62 94 97.6 01/16/18 20:05 97.8 70 18 108/65 94 97.8 01/16/18 19:59 88 18 Room Air 21 01/16/18 17:40 99.5 01/16/18 16:41 100.8 01/16/18 16:22 100.8 91 20 147/80 99 Room Air 100.8 01/16/18 12:00 98.1 82 20 151/87 97 98.1 Height (Feet): 4 Height (Inches): 11.00 Weight (Pounds): 139 General Appearance: no acute distress HEENT: mucous membranes moist Respiratory/Chest: lungs clear Cardiovascular: normal rate Abdomen: soft, non tender Extremities: no edema Neurologic/Psychiatric: responsive, other - drowsy Microbiology Date/Time Source Procedure Growth Status 01/15/18 10:00 Sputum Gram Stain - Final Complete 01/15/18 10:00 Sputum Culture - Final Kamille Albicans Usual Upper Respiratory Yoly Complete 01/14/18 18:00 Sputum AFB Specimen Processing Tissue - Final Resulted 01/14/18 18:00 Sputum Acid Fast Bacilli Smear - Final Resulted 01/14/18 18:00 Sputum Acid Fast Bacilli Culture Pending Resulted Laboratory Tests Test 01/17/18 06:15 White Blood Count 7.5 K/UL (4.8-10.8) Red Blood Count 4.40 M/UL (4.70-6.10) L Hemoglobin 13.5 G/DL (14.2-18.0) L Hematocrit 36.7 % (42.0-52.0) L Mean Corpuscular Volume 83 FL (80-99) Mean Corpuscular Hemoglobin 30.6 PG (27.0-31.0) Mean Corpuscular Hemoglobin Concent 36.8 G/DL (32.0-36.0) H Red Cell Distribution Width 11.4 % (11.6-14.8) L Platelet Count 188 K/UL (150-450) Mean Platelet Volume 5.9 FL (6.5-10.1) L Neutrophils (%) (Auto) 83.5 % (45.0-75.0) H Lymphocytes (%) (Auto) 9.7 % (20.0-45.0) L Monocytes (%) (Auto) 5.1 % (1.0-10.0) Eosinophils (%) (Auto) 1.2 % (0.0-3.0) Basophils (%) (Auto) 0.5 % (0.0-2.0) Sodium Level 124 MMOL/L (136-145) L Potassium Level 3.5 MMOL/L (3.5-5.1) Chloride Level 91 MMOL/L (98-107) L Carbon Dioxide Level 26 MMOL/L (21-32) Anion Gap 7 mmol/L (5-15) Blood Urea Nitrogen 8 mg/dL (7-18) Creatinine 0.7 MG/DL (0.55-1.30) Estimat Glomerular Filtration Rate > 60 mL/min (>60) Glucose Level 214 MG/DL (74-106) H Calcium Level 7.8 MG/DL (8.5-10.1) L Current Medications Medications (Trade) Dose Ordered Sig/Lida Route PRN Reason Start Time Stop Time Status Last Admin Dose Admin Acetaminophen (Tylenol) 650 mg Q4H PRN ORAL Mild Pain/Temp > 100.5 01/10/18 12:15 02/09/18 12:14 01/16/18 16:41 Albuterol/ Ipratropium (Albuterol/ Ipratropium) 3 ml Q4H PRN HHN Shortness of Breath 01/16/18 15:15 01/21/18 15:14 Cefepime HCl 2 gm/ Sodium Chloride 110 ml @ 220 mls/hr EVERY 12 HOURS IV 01/09/18 09:00 01/23/18 08:59 01/17/18 08:56 Dextrose (Dextrose 50%) STAT PRN IV Hypoglycemia 01/09/18 06:30 02/08/18 06:29 Furosemide (Lasix) 20 mg EVERY 8 HOURS IV 01/17/18 14:00 02/16/18 13:59 UNV Heparin Sodium (Porcine) (Heparin 5000 units/ml) 5,000 units EVERY 12 HOURS SUBQ 01/09/18 09:00 02/08/18 08:59 01/17/18 09:04 Insulin Aspart (NovoLOG) BEFORE MEALS AND HS SUBQ 01/09/18 06:30 02/08/18 06:29 01/17/18 06:02 Lansoprazole (Prevacid) 30 mg DAILY ORAL 01/09/18 16:30 02/08/18 16:29 01/17/18 08:56 Ondansetron HCl (Zofran) 4 mg Q6H PRN IVP Nausea & Vomiting 01/09/18 06:30 02/08/18 06:29 Polyethylene Glycol (Miralax) 17 gm DAILYPRN PRN ORAL Constipation 01/09/18 06:30 02/08/18 06:29 01/12/18 16:37 Potassium Chloride (K-Dur) 40 meq TWICE A DAY ORAL 01/17/18 18:00 02/16/18 17:59 UNV Promethazine HCl/ Codeine (Phenergan with Codeine) 5 ml Q4H PRN ORAL For Cough 01/09/18 06:30 02/08/18 06:29 Sodium Chloride 500 ml @ 30 mls/hr ONCE ONCE IVPB 01/17/18 10:15 01/18/18 02:54 UNV Vancomycin HCl (Vanco rx to dose) 1 ea DAILY PRN MISC PRN RX TO DOSE PROTOCOL 01/09/18 15:45 02/08/18 15:44 Vancomycin HCl/ Dextrose 250 ml @ 166.667 mls/hr Q12HR@0400,1600 IVPB 01/14/18 04:00 01/19/18 03:59 01/17/18 04:30 STACIA HANDY 1, 2018 10:30
[2018-01-17] MEDS ORDERED: NaCl 3% 500ml 500 ML IV ONE (12:00)
[2018-01-17] MEDS ORDERED: NS 275ml ONE (16:05)
[2018-01-17] MEDS ORDERED: Tubing IV Secondary IV ONE (16:05)
--- NOTE | 2018-01-17 16:13 | Pulmonology Progress Note ---
Assessment/Plan Problems: (1) Pneumonia (2) Fever (3) Hyponatremia (4) Diabetes Assessment/Plan still episodes of fever, afebrile in the last 24 hours Tspot negative IV abx check sputum, AFB negative DC isolation, considering 3 afb negative and PPD skin testing negative and continue current abx Subjective ROS Limited/Unobtainable: No Interval Events: feeling betteer Allergies: Coded Allergies: No Known Allergies (Unverified , 01/08/18) Objective Last 24 Hour Vital Signs Date Time Temp Pulse Resp B/P (MAP) Pulse Ox O2 Delivery O2 Flow Rate FiO2 01/17/18 12:00 97.9 64 20 159/81 92 97.9 01/17/18 09:00 149/76 98 Room Air 01/17/18 08:00 Room Air 01/17/18 08:00 97.9 57 20 165/71 98 97.9 01/17/18 06:53 70 16 Room Air 01/17/18 04:44 Room Air 01/17/18 04:43 97.9 63 19 103/61 94 97.9 01/17/18 00:10 97.6 66 17 111/62 94 97.6 01/16/18 20:05 97.8 70 18 108/65 94 97.8 01/16/18 19:59 88 18 Room Air 21 01/16/18 17:40 99.5 01/16/18 16:41 100.8 01/16/18 16:22 100.8 91 20 147/80 99 Room Air 100.8 Intake and Output 01/16/18 01/17/18 19:00 07:00 Intake Total 240 ml 610.000 ml Output Total 401 ml Balance -161 ml 610.000 ml Intake Oral 240 ml 360 ml IV Total 250.000 ml Output Urine Total 401 ml # Voids 4 Objective General Appearance: no apparent distress Head: normocephalic, atraumatic Eyes: bilateral eye PERRL, bilateral eye EOMI ENT: normal pharynx, no angioedema Neck: supple, thyroid normal Respiratory: lungs clear, normal breath sounds Cardiovascular #1: regular rate, rhythm Gastrointestinal: non tender, soft Microbiology Date/Time Source Procedure Growth Status 01/15/18 10:00 Sputum Gram Stain - Final Complete 01/15/18 10:00 Sputum Culture - Final Kamille Albicans Usual Upper Respiratory Yoly Complete 01/14/18 18:00 Sputum AFB Specimen Processing Tissue - Final Resulted 01/14/18 18:00 Sputum Acid Fast Bacilli Smear - Final Resulted 01/14/18 18:00 Sputum Acid Fast Bacilli Culture Pending Resulted Laboratory Tests 01/17/18 06:15: White Blood Count 7.5, Red Blood Count 4.40L, Hemoglobin 13.5L, Hematocrit 36.7L , Mean Corpuscular Volume 83, Mean Corpuscular Hemoglobin 30.6, Mean Corpuscular Hemoglobin Concent 36.8H, Red Cell Distribution Width 11.4L, Platelet Count 188, Mean Platelet Volume 5.9L, Neutrophils (%) (Auto) 83.5H, Lymphocytes (%) (Auto) 9.7L, Monocytes (%) (Auto) 5.1, Eosinophils (%) (Auto) 1.2, Basophils (%) (Auto) 0.5, Sodium Level 124L, Potassium Level 3.5, Chloride Level 91L, Carbon Dioxide Level 26, Anion Gap 7, Blood Urea Nitrogen 8, Creatinine 0.7, Estimat Glomerular Filtration Rate > 60, Glucose Level 214H, Calcium Level 7.8L Current Medications Medications (Trade) Dose Ordered Sig/Lida Route PRN Reason Start Time Stop Time Status Last Admin Dose Admin Acetaminophen (Tylenol) 650 mg Q4H PRN ORAL Mild Pain/Temp > 100.5 01/10/18 12:15 02/09/18 12:14 01/16/18 16:41 Albuterol/ Ipratropium (Albuterol/ Ipratropium) 3 ml Q4H PRN HHN Shortness of Breath 01/16/18 15:15 01/21/18 15:14 Dextrose (Dextrose 50%) STAT PRN IV Hypoglycemia 01/09/18 06:30 02/08/18 06:29 Furosemide (Lasix) 20 mg Q8HR IV 01/17/18 14:00 02/16/18 13:59 01/17/18 14:12 Heparin Sodium (Porcine) (Heparin 5000 units/ml) 5,000 units EVERY 12 HOURS SUBQ 01/09/18 09:00 02/08/18 08:59 01/17/18 09:04 Insulin Aspart (NovoLOG) BEFORE MEALS AND HS SUBQ 01/09/18 06:30 02/08/18 06:29 01/17/18 12:02 Lansoprazole (Prevacid) 30 mg DAILY ORAL 01/09/18 16:30 02/08/18 16:29 01/17/18 08:56 Ondansetron HCl (Zofran) 4 mg Q6H PRN IVP Nausea & Vomiting 01/09/18 06:30 02/08/18 06:29 Polyethylene Glycol (Miralax) 17 gm DAILYPRN PRN ORAL Constipation 01/09/18 06:30 02/08/18 06:29 01/12/18 16:37 Potassium Chloride (K-Dur) 40 meq TWICE A DAY ORAL 01/17/18 18:00 02/16/18 17:59 Promethazine HCl/ Codeine (Phenergan with Codeine) 5 ml Q4H PRN ORAL For Cough 01/09/18 06:30 02/08/18 06:29 Sodium Chloride 500 ml @ 30 mls/hr ONCE ONCE IV 01/17/18 12:00 01/18/18 04:39 01/17/18 11:46 BRENDON MEEHAN Jan 17, 2018 16:13
--- NOTE | 2018-01-17 17:23 | Nephrology Progress Note ---
Assessment/Plan Problem List: (1) Hyponatremia (2) Pneumonia (3) Diabetes (4) SIADH (syndrome of inappropriate ADH production) Assessment - Low Na likely SIADH ( High Rosanna , low Uric... today 132 - Pneumonia - Diabetes Plan Plan: 3% Saline and IV Lasix PO Fluid restriction Monitor lytes per consultants Subjective ROS Limited/Unobtainable: No Constitutional: Reports: malaise Objective Objective Last 24 Hour Vital Signs Date Time Temp Pulse Resp B/P (MAP) Pulse Ox O2 Delivery O2 Flow Rate FiO2 01/17/18 16:00 99.7 62 20 135/73 94 99.7 01/17/18 12:00 97.9 64 20 159/81 92 97.9 01/17/18 09:00 149/76 98 Room Air 01/17/18 08:00 Room Air 01/17/18 08:00 97.9 57 20 165/71 98 97.9 01/17/18 06:53 70 16 Room Air 01/17/18 04:44 Room Air 01/17/18 04:43 97.9 63 19 103/61 94 97.9 01/17/18 00:10 97.6 66 17 111/62 94 97.6 01/16/18 20:05 97.8 70 18 108/65 94 97.8 01/16/18 19:59 88 18 Room Air 21 01/16/18 17:40 99.5 Intake and Output 01/16/18 01/17/18 19:00 07:00 Intake Total 240 ml 610.000 ml Output Total 401 ml Balance -161 ml 610.000 ml Intake Oral 240 ml 360 ml IV Total 250.000 ml Output Urine Total 401 ml # Voids 4 Laboratory Tests 01/17/18 06:15: White Blood Count 7.5, Red Blood Count 4.40L, Hemoglobin 13.5L, Hematocrit 36.7L , Mean Corpuscular Volume 83, Mean Corpuscular Hemoglobin 30.6, Mean Corpuscular Hemoglobin Concent 36.8H, Red Cell Distribution Width 11.4L, Platelet Count 188, Mean Platelet Volume 5.9L, Neutrophils (%) (Auto) 83.5H, Lymphocytes (%) (Auto) 9.7L, Monocytes (%) (Auto) 5.1, Eosinophils (%) (Auto) 1.2, Basophils (%) (Auto) 0.5, Sodium Level 124L, Potassium Level 3.5, Chloride Level 91L, Carbon Dioxide Level 26, Anion Gap 7, Blood Urea Nitrogen 8, Creatinine 0.7, Estimat Glomerular Filtration Rate > 60, Glucose Level 214H, Calcium Level 7.8L Height (Feet): 4 Height (Inches): 11.00 Weight (Pounds): 139 Objective no change SERA SHEETS Jan 17, 2018 17:23
--- NOTE | 2018-01-17 20:01 | General Progress Note ---
Assessment/Plan Problem List: (1) Diabetes ICD Codes: E11.9 - Type 2 diabetes mellitus without complications SNOMED: 69931686 Qualifiers: Qualified Codes: E11.8 - Type 2 diabetes mellitus with unspecified complications (2) Hyponatremia ICD Codes: E87.1 - Hypo-osmolality and hyponatremia SNOMED: 64256834 (3) Pneumonia ICD Codes: J18.9 - Pneumonia, unspecified organism SNOMED: 743946545 Qualifiers: Qualified Codes: J18.1 - Lobar pneumonia, unspecified organism (4) Fever ICD Codes: R50.9 - Fever, unspecified SNOMED: 825528507 Status: progressing Assessment/Plan PNA intermittent fever r/o tb needs 3 negative afb before dc and needs id clearance as well Subjective ROS Limited/Unobtainable: Yes Allergies: Coded Allergies: No Known Allergies (Unverified , 01/08/18) Objective Last 24 Hour Vital Signs Date Time Temp Pulse Resp B/P (MAP) Pulse Ox O2 Delivery O2 Flow Rate FiO2 01/17/18 16:00 99.7 62 20 135/73 94 99.7 01/17/18 16:00 Room Air 01/17/18 12:00 Room Air 01/17/18 12:00 97.9 64 20 159/81 92 97.9 01/17/18 09:00 149/76 98 Room Air 01/17/18 08:00 Room Air 01/17/18 08:00 97.9 57 20 165/71 98 97.9 01/17/18 06:53 70 16 Room Air 01/17/18 04:44 Room Air 01/17/18 04:43 97.9 63 19 103/61 94 97.9 01/17/18 00:10 97.6 66 17 111/62 94 97.6 01/16/18 20:05 97.8 70 18 108/65 94 97.8 Intake and Output 01/16/18 01/17/18 19:00 07:00 Intake Total 240 ml 610.000 ml Output Total 401 ml Balance -161 ml 610.000 ml Intake Oral 240 ml 360 ml IV Total 250.000 ml Output Urine Total 401 ml # Voids 4 Laboratory Tests 01/17/18 06:15: White Blood Count 7.5, Red Blood Count 4.40L, Hemoglobin 13.5L, Hematocrit 36.7L , Mean Corpuscular Volume 83, Mean Corpuscular Hemoglobin 30.6, Mean Corpuscular Hemoglobin Concent 36.8H, Red Cell Distribution Width 11.4L, Platelet Count 188, Mean Platelet Volume 5.9L, Neutrophils (%) (Auto) 83.5H, Lymphocytes (%) (Auto) 9.7L, Monocytes (%) (Auto) 5.1, Eosinophils (%) (Auto) 1.2, Basophils (%) (Auto) 0.5, Sodium Level 124L, Potassium Level 3.5, Chloride Level 91L, Carbon Dioxide Level 26, Anion Gap 7, Blood Urea Nitrogen 8, Creatinine 0.7, Estimat Glomerular Filtration Rate > 60, Glucose Level 214H, Calcium Level 7.8L Height (Feet): 4 Height (Inches): 11.00 Weight (Pounds): 139 Respiratory/Chest: lungs clear Echo Baez MD Jan 17, 2018 20:01
--- NOTE | 2018-01-17 23:48 | General Progress Note ---
Assessment/Plan Assessment/Plan 1. Anemia due to underlying chronic disease. --> Continue to closely monitor. --> Consider workup if hemoglobin downtrends. --> Mild at this time, hgb 13.7, does not require PRBC. 2. Fevers and chills, probably due to underlying pneumonia. --> Temp elevated today. On cooling measures. 3. Pneumonia, upper right lobe. --> Continue to monitor. On antibiotics. Improved. --> Consider ID recs. 4. Hyponatremia potentially secondary to syndrome of inappropriate antidiuretic hormone. 5. Diabetes mellitus. Continue blood sugar goal between 80 and 120. 6. Hypoalbuminemia secondary to protein-calorie malnutrition. Subjective Date patient seen: Jan 17, 2018 Constitutional: Denies: no symptoms, chills, diaphoresis, fever, malaise, weakness, other HEENT: Denies: no symptoms, eye pain, blurred vision, tearing, double vision, ear pain, ear discharge, nose pain, nose congestion, throat pain, throat swelling, mouth pain, mouth swelling, other Cardiovascular: Denies: no symptoms, chest pain, edema, irregular heart rate, lightheadedness, palpitations, syncope, other Respiratory: Denies: no symptoms, cough, orthopnea, shortness of breath, SOB with excertion, SOB at rest, sputum, stridor, wheezing, other Gastrointestinal/Abdominal: Denies: no symptoms, abdomen distended, abdominal pain, black stools, tarry stools, blood in stool, constipated, diarrhea, difficulty swallowing, nausea, poor appetite, poor fluid intake, rectal bleeding , vomiting, other Genitourinary: Denies: no symptoms, burning, discharge, frequency, flank pain, hematuria, incontinence, pain, urgency, other Allergies: Coded Allergies: No Known Allergies (Unverified , 01/08/18) Subjective On cooling measures for fever. H/H stable. Objective Last 24 Hour Vital Signs Date Time Temp Pulse Resp B/P (MAP) Pulse Ox O2 Delivery O2 Flow Rate FiO2 01/17/18 22:15 99.2 01/17/18 21:03 100.9 01/17/18 20:00 100.9 74 18 135/74 93 100.9 01/17/18 20:00 93 Room Air 01/17/18 18:50 74 18 Room Air 01/17/18 16:00 99.7 62 20 135/73 94 99.7 01/17/18 16:00 Room Air 01/17/18 12:00 Room Air 01/17/18 12:00 97.9 64 20 159/81 92 97.9 01/17/18 09:00 149/76 98 Room Air 01/17/18 08:00 Room Air 01/17/18 08:00 97.9 57 20 165/71 98 97.9 01/17/18 06:53 70 16 Room Air 01/17/18 04:44 Room Air 01/17/18 04:43 97.9 63 19 103/61 94 97.9 01/17/18 00:10 97.6 66 17 111/62 94 97.6 Intake and Output 01/16/18 01/17/18 19:00 07:00 Intake Total 240 ml 610.000 ml Output Total 401 ml Balance -161 ml 610.000 ml Intake Oral 240 ml 360 ml IV Total 250.000 ml Output Urine Total 401 ml # Voids 4 Laboratory Tests 01/17/18 06:15: White Blood Count 7.5, Red Blood Count 4.40L, Hemoglobin 13.5L, Hematocrit 36.7L , Mean Corpuscular Volume 83, Mean Corpuscular Hemoglobin 30.6, Mean Corpuscular Hemoglobin Concent 36.8H, Red Cell Distribution Width 11.4L, Platelet Count 188, Mean Platelet Volume 5.9L, Neutrophils (%) (Auto) 83.5H, Lymphocytes (%) (Auto) 9.7L, Monocytes (%) (Auto) 5.1, Eosinophils (%) (Auto) 1.2, Basophils (%) (Auto) 0.5, Sodium Level 124L, Potassium Level 3.5, Chloride Level 91L, Carbon Dioxide Level 26, Anion Gap 7, Blood Urea Nitrogen 8, Creatinine 0.7, Estimat Glomerular Filtration Rate > 60, Glucose Level 214H, Calcium Level 7.8L Height (Feet): 4 Height (Inches): 11.00 Weight (Pounds): 139 Vic Anderson Jan 17, 2018 23:48
[2018-01-18 04:09] VITALS: BP 130/71
[2018-01-18] MEDS: NovoLOG Insulin Flexpen SUBQ SCH ×2 (05:46→12:09)
[2018-01-18 07:41] LABS: ALANINE AMINOTRANSFERASE 41 U/L (12-78); ALBUMIN 2.6 G/DL (3.4-5.0); ALBUMIN/GLOBULIN RATIO 0.5 (1.0-2.7); ALKALINE PHOSPHATASE 108 U/L (46-116); ANION GAP 6 mmol/L (5-15); ASPARTATE AMINO TRANSFERASE 18 U/L (15-37); BILIRUBIN,TOTAL 0.7 MG/DL (0.2-1.0); BLOOD UREA NITROGEN 8 mg/dL (7-18); CALCIUM 8.7 MG/DL (8.5-10.1); CARBON DIOXIDE 30 MMOL/L (21-32); CHLORIDE 96 MMOL/L (98-107); CREATININE 0.7 MG/DL (0.55-1.30); PHOSPHORUS 2.9 MG/DL (2.5-4.9); POTASSIUM 3.4 MMOL/L (3.5-5.1); SODIUM 132 MMOL/L (136-145)
[2018-01-18 08:00] VITALS: BP 147/88
[2018-01-18] MEDS: Heparin 5000 units/ml inj SUBQ SCH (09:31)
[2018-01-18] MEDS ORDERED: NaCl 3% 500ml 250 ML IV ONE (11:30)
[2018-01-18 12:00] VITALS: BP 157/104
--- NOTE | 2018-01-18 12:25 | Pulmonology Progress Note ---
Assessment/Plan Assessment/Plan ASSESSMENT PNA r/o TB DM type2 Hypo Na likely SIADH anemia of chronic disease persistent fevers PLAN OF CARE MS floor dc isolation T spot negative sputum AFB x3 negative serology so far all negative (only Cocci pending) sputum cx + Kamille empiric abx urine cx negative, influenza screen negative, blood cx negative , ID follows on dc oral abx as per ID recs persistent fevers -resolved CT A/P no acute intraabdominal pathology noted fup CXR 01/17 -Possibly developing left infrahilar infiltrate get CXR in am O2 HHN prn BS management with SS insulin HgA1c not at goal-8.9, but BS stable with SS insulin, likely noncompliance with meds at home nephro follows, likely SIADH given hypo Na w/up monitor renal parameters, lytes, correct lytes as needed monitor counts, transfuse prn anemia w/up c/w anemia of chronic disease DVT GI prophylaxis case discussed and evaluated by supervising physician Subjective Allergies: Coded Allergies: No Known Allergies (Unverified , 01/08/18) Subjective no leucocytosis, low grade fever last night CXR 01/17 with possible perihilar infiltrate on isolation pulse ox stable on RA Na-132 Objective Last 24 Hour Vital Signs Date Time Temp Pulse Resp B/P (MAP) Pulse Ox O2 Delivery O2 Flow Rate FiO2 01/18/18 08:00 97.8 79 20 147/88 95 97.8 01/18/18 04:09 98 Room Air 01/18/18 04:09 97.5 64 18 130/71 98 97.5 01/17/18 22:15 99.2 01/17/18 21:03 100.9 01/17/18 20:00 100.9 74 18 135/74 93 100.9 01/17/18 20:00 93 Room Air 01/17/18 18:50 74 18 Room Air 01/17/18 16:00 99.7 62 20 135/73 94 99.7 01/17/18 16:00 Room Air Intake and Output 01/17/18 01/18/18 19:00 07:00 Intake Total 210 ml 530 ml Output Total 600 ml Balance -390 ml 530 ml Intake Oral 240 ml IV Total 210 ml 290 ml Output Urine Total 600 ml # Voids 2 1 Objective General Appearance: no acute distress HEENT: normocephalic, atraumatic, anicteric, mucous membranes moist Respiratory/Chest: lungs clear - with moderate air exchange , no respiratory distress, no accessory muscle use Cardiovascular: normal rate, regular rhythm Abdomen: normal bowel sounds, soft, non tender, non distended Extremities: no edema, pedal pulses normal Neurologic/Psychiatric: alert, oriented x 3, responsive Musculoskeletal: normal muscle bulk Laboratory Tests 01/17/18 16:30: Histoplasma Antigen [Pending] 01/18/18 06:10: Sodium Level 132L, Potassium Level 3.4L, Chloride Level 96L, Carbon Dioxide Level 30, Anion Gap 6, Blood Urea Nitrogen 8, Creatinine 0.7, Estimat Glomerular Filtration Rate > 60, Glucose Level 155H, Osmolality 279L, Uric Acid 1.4L, Calcium Level 8.7, Phosphorus Level 2.9, Magnesium Level 2.3, Total Bilirubin 0.7, Aspartate Amino Transf (AST/SGOT) 18, Alanine Aminotransferase ( ALT/SGPT) 41, Alkaline Phosphatase 108, C-Reactive Protein, Quantitative 2.5H, Pro-B-Type Natriuretic Peptide 452H, Total Protein 7.9, Albumin 2.6L, Globulin 5.3, Albumin/Globulin Ratio 0.5L Current Medications Medications (Trade) Dose Ordered Sig/Lida Route PRN Reason Start Time Stop Time Status Last Admin Dose Admin Acetaminophen (Tylenol) 650 mg Q4H PRN ORAL Mild Pain/Temp > 100.5 01/10/18 12:15 02/09/18 12:14 01/17/18 21:03 Albuterol/ Ipratropium (Albuterol/ Ipratropium) 3 ml Q4H PRN HHN Shortness of Breath 01/16/18 15:15 01/21/18 15:14 Dextrose (Dextrose 50%) STAT PRN IV Hypoglycemia 01/09/18 06:30 02/08/18 06:29 Furosemide (Lasix) 20 mg Q8HR IV 01/17/18 14:00 02/16/18 13:59 01/18/18 05:46 Heparin Sodium (Porcine) (Heparin 5000 units/ml) 5,000 units EVERY 12 HOURS SUBQ 01/09/18 09:00 02/08/18 08:59 01/18/18 09:31 Insulin Aspart (NovoLOG) BEFORE MEALS AND HS SUBQ 01/09/18 06:30 02/08/18 06:29 01/18/18 12:09 Lansoprazole (Prevacid) 30 mg DAILY ORAL 01/09/18 16:30 02/08/18 16:29 01/18/18 09:31 Ondansetron HCl (Zofran) 4 mg Q6H PRN IVP Nausea & Vomiting 01/09/18 06:30 02/08/18 06:29 Polyethylene Glycol (Miralax) 17 gm DAILYPRN PRN ORAL Constipation 01/09/18 06:30 02/08/18 06:29 01/12/18 16:37 Potassium Chloride (K-Dur) 40 meq TID ORAL 01/18/18 13:00 02/16/18 17:59 Promethazine HCl/ Codeine (Phenergan with Codeine) 5 ml Q4H PRN ORAL For Cough 01/09/18 06:30 02/08/18 06:29 Sodium Chloride 250 ml @ 30 mls/hr ONCE ONCE IV 01/18/18 11:30 01/18/18 19:49 01/18/18 12:21 [facility]Tonie NP Jan 18, 2018 12:25
--- NOTE | 2018-01-18 12:32 | Infectious Diseases Prog Note ---
Assessment/Plan Assessment/Plan A; Pneumonia s/p 7 days treatment Doubt TB, T spot negative, AFB X 3 : neg Persistent fever SIADH DM type 2 P; Levaquin 750 mg X 5 days agree with discharge if remains afebrile until 5 PM Consider bronchoscopy & biopsy case was D/W family Subjective ROS Limited/Unobtainable: No Constitutional: Reports: other - afebrile today, feels better Respiratory: Reports: no symptoms Cardiovascular: Reports: no symptoms Gastrointestinal/Abdominal: Reports: no symptoms Genitourinary: Reports: no symptoms Allergies: Coded Allergies: No Known Allergies (Unverified , 01/08/18) Objective Vital Signs Last 24 Hour Vital Signs Date Time Temp Pulse Resp B/P (MAP) Pulse Ox O2 Delivery O2 Flow Rate FiO2 01/18/18 08:00 97.8 79 20 147/88 95 97.8 01/18/18 04:09 98 Room Air 01/18/18 04:09 97.5 64 18 130/71 98 97.5 01/17/18 22:15 99.2 01/17/18 21:03 100.9 01/17/18 20:00 100.9 74 18 135/74 93 100.9 01/17/18 20:00 93 Room Air 01/17/18 18:50 74 18 Room Air 01/17/18 16:00 99.7 62 20 135/73 94 99.7 01/17/18 16:00 Room Air Height (Feet): 4 Height (Inches): 11.00 Weight (Pounds): 139 General Appearance: no acute distress HEENT: mucous membranes moist Respiratory/Chest: lungs clear Cardiovascular: normal rate Abdomen: soft, non tender Extremities: no edema Neurologic/Psychiatric: alert, responsive Laboratory Tests Test 01/17/18 16:30 01/18/18 06:10 Histoplasma Antigen Pending Sodium Level 132 MMOL/L (136-145) L Potassium Level 3.4 MMOL/L (3.5-5.1) L Chloride Level 96 MMOL/L (98-107) L Carbon Dioxide Level 30 MMOL/L (21-32) Anion Gap 6 mmol/L (5-15) Blood Urea Nitrogen 8 mg/dL (7-18) Creatinine 0.7 MG/DL (0.55-1.30) Estimat Glomerular Filtration Rate > 60 mL/min (>60) Glucose Level 155 MG/DL (74-106) H Osmolality 279 mOsm/kg (297-317) L Uric Acid 1.4 MG/DL (2.6-7.2) L Calcium Level 8.7 MG/DL (8.5-10.1) Phosphorus Level 2.9 MG/DL (2.5-4.9) Magnesium Level 2.3 MG/DL (1.8-2.4) Total Bilirubin 0.7 MG/DL (0.2-1.0) Aspartate Amino Transf (AST/SGOT) 18 U/L (15-37) Alanine Aminotransferase (ALT/SGPT) 41 U/L (12-78) Alkaline Phosphatase 108 U/L (46-116) C-Reactive Protein, Quantitative 2.5 mg/dL (0.00-0.90) H Pro-B-Type Natriuretic Peptide 452 pg/mL (0-125) H Total Protein 7.9 G/DL (6.4-8.2) Albumin 2.6 G/DL (3.4-5.0) L Globulin 5.3 g/dL Albumin/Globulin Ratio 0.5 (1.0-2.7) L Current Medications Medications (Trade) Dose Ordered Sig/Lida Route PRN Reason Start Time Stop Time Status Last Admin Dose Admin Acetaminophen (Tylenol) 650 mg Q4H PRN ORAL Mild Pain/Temp > 100.5 01/10/18 12:15 02/09/18 12:14 01/17/18 21:03 Albuterol/ Ipratropium (Albuterol/ Ipratropium) 3 ml Q4H PRN HHN Shortness of Breath 01/16/18 15:15 01/21/18 15:14 Dextrose (Dextrose 50%) STAT PRN IV Hypoglycemia 01/09/18 06:30 02/08/18 06:29 Furosemide (Lasix) 20 mg Q8HR IV 01/17/18 14:00 02/16/18 13:59 01/18/18 05:46 Heparin Sodium (Porcine) (Heparin 5000 units/ml) 5,000 units EVERY 12 HOURS SUBQ 01/09/18 09:00 02/08/18 08:59 01/18/18 09:31 Insulin Aspart (NovoLOG) BEFORE MEALS AND HS SUBQ 01/09/18 06:30 02/08/18 06:29 01/18/18 12:09 Lansoprazole (Prevacid) 30 mg DAILY ORAL 01/09/18 16:30 02/08/18 16:29 01/18/18 09:31 Ondansetron HCl (Zofran) 4 mg Q6H PRN IVP Nausea & Vomiting 01/09/18 06:30 02/08/18 06:29 Polyethylene Glycol (Miralax) 17 gm DAILYPRN PRN ORAL Constipation 01/09/18 06:30 02/08/18 06:29 01/12/18 16:37 Potassium Chloride (K-Dur) 40 meq TID ORAL 01/18/18 13:00 02/16/18 17:59 Promethazine HCl/ Codeine (Phenergan with Codeine) 5 ml Q4H PRN ORAL For Cough 01/09/18 06:30 02/08/18 06:29 Sodium Chloride 250 ml @ 30 mls/hr ONCE ONCE IV 01/18/18 11:30 01/18/18 19:49 01/18/18 12:21 STACIA HANDY Jan 18, 2018 12:32
[2018-01-18] MEDS ORDERED: LEVAQUIN750 MG ORAL (12:52)
[2018-01-18 16:00] VITALS: BP 162/91
--- NOTE | 2018-01-18 16:33 | Nephrology Progress Note ---
Assessment/Plan Problem List: (1) Hyponatremia (2) Pneumonia (3) Diabetes (4) SIADH (syndrome of inappropriate ADH production) Assessment - Low Na likely SIADH ( High Rosanna , low Uric... today 132 - Pneumonia - Diabetes Plan Plan: 3% Saline and IV Lasix PO Fluid restriction Monitor lytes per consultants Subjective ROS Limited/Unobtainable: No Constitutional: Reports: malaise Objective Objective Last 24 Hour Vital Signs Date Time Temp Pulse Resp B/P (MAP) Pulse Ox O2 Delivery O2 Flow Rate FiO2 01/18/18 16:00 98.2 86 19 162/91 94 98.2 01/18/18 12:00 98.2 94 19 157/104 94 98.2 01/18/18 09:08 85 20 Room Air 01/18/18 08:00 97.8 79 20 147/88 95 97.8 01/18/18 04:09 98 Room Air 01/18/18 04:09 97.5 64 18 130/71 98 97.5 01/17/18 22:15 99.2 01/17/18 21:03 100.9 01/17/18 20:00 100.9 74 18 135/74 93 100.9 01/17/18 20:00 93 Room Air 01/17/18 18:50 74 18 Room Air Intake and Output 01/17/18 01/18/18 19:00 07:00 Intake Total 210 ml 530 ml Output Total 600 ml Balance -390 ml 530 ml Intake Oral 240 ml IV Total 210 ml 290 ml Output Urine Total 600 ml # Voids 2 1 Laboratory Tests 01/18/18 06:10: Sodium Level 132L, Potassium Level 3.4L, Chloride Level 96L, Carbon Dioxide Level 30, Anion Gap 6, Blood Urea Nitrogen 8, Creatinine 0.7, Estimat Glomerular Filtration Rate > 60, Glucose Level 155H, Osmolality 279L, Uric Acid 1.4L, Calcium Level 8.7, Phosphorus Level 2.9, Magnesium Level 2.3, Total Bilirubin 0.7, Aspartate Amino Transf (AST/SGOT) 18, Alanine Aminotransferase ( ALT/SGPT) 41, Alkaline Phosphatase 108, C-Reactive Protein, Quantitative 2.5H, Pro-B-Type Natriuretic Peptide 452H, Total Protein 7.9, Albumin 2.6L, Globulin 5.3, Albumin/Globulin Ratio 0.5L Height (Feet): 4 Height (Inches): 11.00 Weight (Pounds): 139 General Appearance: no apparent distress Objective no change SERA SHEETS Jan 18, 2018 16:33
[2018-01-18] MEDS ORDERED: Tubing IV Secondary IV ONE (18:40)
[2018-01-18] MEDS ORDERED: NS 275ml ONE (18:40)
--- NOTE | 2018-01-19 09:59 | General Progress Note ---
Assessment/Plan Assessment/Plan 1. Anemia due to underlying chronic disease. --> Continue to closely monitor. --> Consider workup if hemoglobin downtrends. --> Mild at this time, hgb 13.7, does not require PRBC. 2. Fevers and chills, probably due to underlying pneumonia. --> Temp elevated today. On cooling measures. --> Fever improved and temp has gone down. 3. Pneumonia, upper right lobe. --> Continue to monitor. On antibiotics. Improved. --> Consider ID recs. 4. Hyponatremia potentially secondary to syndrome of inappropriate antidiuretic hormone. 5. Diabetes mellitus. Continue blood sugar goal between 80 and 120. 6. Hypoalbuminemia secondary to protein-calorie malnutrition. Subjective Date patient seen: Jan 18, 2018 Constitutional: Denies: no symptoms, chills, diaphoresis, fever, malaise, weakness, other HEENT: Denies: no symptoms, eye pain, blurred vision, tearing, double vision, ear pain, ear discharge, nose pain, nose congestion, throat pain, throat swelling, mouth pain, mouth swelling, other Cardiovascular: Denies: no symptoms, chest pain, edema, irregular heart rate, lightheadedness, palpitations, syncope, other Respiratory: Denies: no symptoms, cough, orthopnea, shortness of breath, SOB with excertion, SOB at rest, sputum, stridor, wheezing, other Gastrointestinal/Abdominal: Denies: no symptoms, abdomen distended, abdominal pain, black stools, tarry stools, blood in stool, constipated, diarrhea, difficulty swallowing, nausea, poor appetite, poor fluid intake, rectal bleeding , vomiting, other Genitourinary: Denies: no symptoms, burning, discharge, frequency, flank pain, hematuria, incontinence, pain, urgency, other Allergies: Coded Allergies: No Known Allergies (Unverified , 01/08/18) Subjective NAD. Feeling better. H/H stable. Objective Last 24 Hour Vital Signs Date Time Temp Pulse Resp B/P (MAP) Pulse Ox O2 Delivery O2 Flow Rate FiO2 01/18/18 16:00 98.2 86 19 162/91 94 98.2 01/18/18 12:00 98.2 94 19 157/104 94 98.2 Intake and Output 01/18/18 01/19/18 19:00 07:00 Intake Total 240 ml Balance 240 ml Intake Oral 240 ml # Voids 2 # Bowel Movements 1 Height (Feet): 4 Height (Inches): 11.00 Weight (Pounds): 139 General Appearance: no apparent distress Respiratory/Chest: decreased breath sounds Vic Anderson Jan 19, 2018 09:58
--- NOTE | 2018-01-21 15:01 | Discharge Summary ---
Discharge Summary Hospital Course Date of Admission Jan 08, 2018 at 23:25 Date of Discharge Jan 18, 2018 at 18:41 Admitting Diagnosis pneumonia HPI Wilder Winkler is a 62 year old male who was admitted on Jan 08, 2018 at 23: 25 for Pneumonia Hospital Course dc summary #[id number] Discharge Medications Continued Medications: Levofloxacin* (Levaquin*) 750 Mg Tablet 750 MG ORAL DAILY for 5 Days, TAB Metformin Hcl* (Metformin Hcl*) 500 Mg Tablet 500 MG ORAL DAILY, TAB Discharge Condition Upon Discharge: stable Discharge Disposition Patient was discharged to Home () Discharge Diagnoses: Lb (Harvey),Tonie FINN Jan 21, 2018 15:01
--- NOTE | 2018-01-22 01:30 | Discharge Summary 2 SIG ---
DATE OF ADMISSION: 01/08/2018 DATE OF DISCHARGE: 01/18/2018 REASON FOR ADMISSION: 62-year-old male, presented to emergency department with two weeks of weakness, lack of appetite. He was told that he had pneumonia, but he was afebrile and was only given expectorant. He denied productive cough. The patient had a history of diabetes. One episode of diarrhea few days ago. No blood or melena. Workup in the emergency room revealed fever- 101.3 degrees, pulse oximetry was 95% on room air, and blood pressure was stable. Urinalysis was negative for UTI. Sodium - 126 and lactic acid -1.5. Stable liver enzymes. Troponin negative. ProBNP- 61. Albumin -2.5. EKG showed normal sinus rhythm. Chest x-ray revealed right upper lobe infiltrate. The patient admitted with the diagnoses of pneumonia, hyponatremia, and diabetes. CONSULTANTS: 1. Dr. Linda, Infectious Disease. 2. Dr. Carpio, circuit tester. 3. Dr. Sin, soft water mechanic. 4. Dr. Vic Bah, business office representative/oncologist. HOSPITAL COURSE: The patient admitted. The patient started on empiric antibiotics, supplemental oxygen and pulmonary toilet. Antitussive provided as needed. CT of the chest revealed dense consolidation in the inferior right upper lobe. Even though the appearance was suggestive of typical community-acquired pneumonia, due to location as well as the mediastinal and hilar lymphadenopathy and calcification suggesting old granulomatous disease , the possibility of reactivation tuberculosis should be considered. The patient was palced on airborne isolation and work up to rule out TB was initiated. T-spot was negative. Sputum for AFB x3 were negative. Fungal serology was negative. Sputum culture revealed Kamille. The patient was on antibiotics. Urine culture negative. Influenza screen negative. Blood culture negative. ID closely followed. The patient initially had persistent fever, which subsequently resolved. CT of the abdomen and pelvis was done subsequently , but revealed no acute intra-abdominal pathology. Followup chest x-ray on showed possibly developing infrahilar infiltrate. ID recommended oral antibiotic for additional five days upon discharge. If no improvement after one week, consider bronchoscopy and biopsy. The patient initially was with hyponatremia, circuit tester consulted. Hyponatremia workup initiated. According to circuit tester, the patient probably had SIADH. Hyponatremia was treated with fluid restriction, 3% of sodium chloride and IV Lasix. Sodium from initial 126 up to 132. Renal parameters and electrolytes were closely monitored. Electrolytes were corrected as needed. Cadd Technician followed for mild anemia. Hemoglobin and hematocrit were closely monitored, remained stable. Blood sugar was managed with sliding scale of insulin. Hemoglobin A1c not at goal, -8.9, but blood sugar at the hospital was stable with sliding scale of insulin, likely noncompliance with medications at home. DVT and GI prophylaxis provided. The patient was stable for discharge. FINAL DIAGNOSES: 1. Pneumonia, right upper lobe. 2. Diabetes mellitus. 3. Hyponatremia, 4. Probably syndrome of inappropriate secretion of antidiuretic hormone. 5. Anemia of chronic disease. 6. Persistent fever, -resolved; tuberculosis was ruled out. DISCHARGE MEDICATIONS: See medication reconciliation list. DISCHARGE INSTRUCTIONS: The patient was discharged home. Follow up with the primary care provider next week. Echo Baez M.D. Tonie [facility], [place] NFemi DR: PAN JOB#: [id number] CC: JENNY
== END 2018-01-18 18:41 | disposition home or self-care (01) | DRG 139 ==
LOC: EMR 22:30 → 4W 23:25 → EDBEDREQ 01-09 00:18 → 4W 01-11 11:17
DX: J18.9 Pneumonia, unspecified organism (principal); B37.0 Candidal stomatitis; E22.2 Syndrome of inappropriate secretion of antidiuretic hormone; E46 Unspecified protein-calorie malnutrition; E11.9 Type 2 diabetes mellitus without complications; Z79.84 Long term (current) use of oral hypoglycemic drugs; F41.9 Anxiety disorder, unspecified; D64.9 Anemia, unspecified; K80.20 Calculus of gallbladder without cholecystitis without obstruction
CPT/HCPCS: 36415; 71045; 71260; 74177; 80048; 80053; 80061; 80202; 81001; 81003; 82378; 82533; 82550; 82962; 83036; 83605; 83615; 83735; 83880; 83930; 83935; 84100; 84300; 84439; 84443; 84481; 84484; 84550; 85025; 85610; 85730; 86140; 86171; 86612; 86635; 86703; 86710; 87040; 87070; 87086; 87116; 87205; 87385; 87449; 87556; 93005; 94664; 99285; J1815; J8499